=== PATIENT | female | born 1985 | race Two or more races ===

== ENCOUNTER 2022-08-16 15:56 | Outpatient (REF) | payer OTHER, SELFPAY ==
--- NOTE | ~2022-08-16 | US_ITS ---
EXAMINATION: US PELVIS CLINICAL INFORMATION: Menorrhagia. 37-year-old, LMP 07/17/2022 COMPARISON: None available. TECHNIQUE: Ultrasound of the pelvis is performed using both transabdominal and transvaginal transducers along with Doppler. Transvaginal imaging is performed due to inadequate visualization transabdominally. FINDINGS: Uterus: The uterus is anteverted and measures 7.8 x 3.7 x 5.9 cm. The double wall endometrial thickness is 11 mm. Configuration of the uterus may reflect arcuate morphology. No visible fibroid. Adnexa: Both ovaries are visualized. There is normal color flow to the adnexa. There is no ovarian torsion. There is no pelvic ascites or fluid collection. Right ovary measures 4.2 x 2.2 x 2.5 cm. Left ovary measures 2.9 x 2.0 x 1.6 cm. US/US pelvic and transvaginal IMPRESSION: Configuration of the uterus may reflect arcuate morphology. No visible fibroid.
== END 2022-08-16 15:57 | disposition home or self-care (01) ==
LOC: HO.US 15:56
PROVIDERS: Visit Provider Student in an Organized Health Care Education/Training Program
DX: N92.1 Excessive and frequent menstruation with irregular cycle (principal)
CPT/HCPCS: 76830; 76856

== ENCOUNTER 2022-10-26 15:17 | Outpatient (REF) | payer OTHER, SELFPAY ==
--- NOTE | ~2022-10-26 | XR_ITS ---
EXAMINATION: XR ANKLE, RIGHT CLINICAL INFORMATION: Right ankle pain following twisting injury. COMPARISON: None available. TECHNIQUE: AP, lateral, and mortise views of the right ankle. FINDINGS: The ankle joint and mortise are intact. There is no acute fracture or dislocation. The joint spaces are unremarkable. Mild soft tissue swelling is seen laterally. XR/XR ankle RT min 3V IMPRESSION: Mild soft tissue swelling laterally without acute underlying osseous abnormality.
== END 2022-10-26 15:18 | disposition home or self-care (01) ==
LOC: HO.HHCX 15:17
PROVIDERS: Visit Provider Family Medicine
DX: S99.911A Unspecified injury of right ankle, initial encounter (principal)
CPT/HCPCS: 73610

== ENCOUNTER 2022-12-06 18:42 | Outpatient (REF) | payer OTHER, SELFPAY ==
[2022-12-07 13:59] LABS: BV Int Neg Control Negative (Negative); BV Int Pos Control Positive (Positive)
== END 2022-12-06 18:43 | disposition home or self-care (01) ==
LOC: HO.HHCLNP 18:42
PROVIDERS: Visit Provider Advanced Practice Midwife
DX: R35.0 Frequency of micturition (principal); N89.8 Other specified noninflammatory disorders of vagina
CPT/HCPCS: 87086; 87480; 87510; 87660

== ENCOUNTER 2023-01-24 10:40 | Outpatient (REF) | payer OTHER, SELFPAY ==
--- NOTE | ~2023-01-24 | XR_ITS ---
EXAMINATION: XR LUMBOSACRAL SPINE WITH OBLIQUES CLINICAL INFORMATION: Low back pain COMPARISON: None available. TECHNIQUE: 5 views of the lumbar spine FINDINGS: 5 nonrib-bearing lumbar-type vertebral bodies. No acute visible fracture or dislocation. Slight grade 1 anterolisthesis of L5 on S1 with bilateral L5 pars defects. Slight grade 1 retrolisthesis of L4 and L5. Vertebral body heights and disc spaces are otherwise maintained. Posterior elements are intact. Paraspinal soft tissues are unremarkable. Visualized bowel gas is unremarkable. XR/XR lumbar spine 4V min IMPRESSION: 1. No acute visible fracture or dislocation. 2. Slight grade 1 anterolisthesis of L5 on S1 with bilateral L5 pars defects. 3. Slight grade 1 retrolisthesis of L4 and L5.
== END 2023-01-24 10:41 | disposition home or self-care (01) ==
LOC: HO.HHCX 10:40
PROVIDERS: Visit Provider Student in an Organized Health Care Education/Training Program
DX: R39.15 Urgency of urination (principal); M54.50 Low back pain, unspecified
CPT/HCPCS: 72110; 87086

== ENCOUNTER 2023-04-13 14:47 | Outpatient (REF) | payer OTHER, SELFPAY ==
[2023-04-13 16:59] LABS: Alanine Aminotransferase 44 U/L (0-31); Albumin Level 4.3 g/dL (3.5-5.0); Alkaline Phosphatase 88 U/L (39-117); Anion Gap 13 (12-20); Aspartate Amino Transferase 29 U/L (5-31); Bilirubin Total 0.4 mg/dL (0.0-1.0); Blood Urea Nitrogen 13 mg/dL (9-16); Calcium 9.7 mg/dL (8.4-10.2); Carbon Dioxide 27 mmol/L (22-29); Chloride 103 mmol/L (96-108); Estimated Glomerular Filt Rate > 60; Glucose Random 81 mg/dL (60-115); Potassium 3.7 mmol/L (3.3-5.1); Sodium 139 mmol/L (135-145); Total Protein 7.7 g/dL (6.5-8.0)
[2023-04-13 18:43] LABS: Creatinine Urine 48.91 mg/dL; Microalbumin Urine < 5.0 mg/L
== END 2023-04-13 14:48 | disposition home or self-care (01) ==
LOC: HO.HHCL 14:47
PROVIDERS: Visit Provider Student in an Organized Health Care Education/Training Program
DX: I10 Essential (primary) hypertension (principal)
CPT/HCPCS: 36415; 80053; 82570

== ENCOUNTER 2023-04-25 10:53 | Outpatient (REF) | payer OTHER, SELFPAY ==
--- NOTE | ~2023-04-25 | MM_ITS ---
EXAMINATION: MM DIAGNOSTIC DIGITAL BREAST TOMOSYNTHESIS, BILATERAL US BREAST LIMITED, LEFT MAMMOGRAPHY: CLINICAL INFORMATION: 38-year-old female, baseline exam, no significant family history of breast cancer, complaining of palpable abnormality in the 9:00 periareolar region left breast. COMPARISON: Mammography: None. Baseline exam. TECHNIQUE: Digital breast tomosynthesis is performed in both the craniocaudal and mediolateral oblique views along with computer-aided detection (CAD). Synthesized 2D images are generated from the tomosynthesis. In addition to standard views, 2-D spot magnification views of the left CC and ML were performed, as well as 3-D spot compression left CC view, and left MLO view x2. FINDINGS: The breasts are heterogeneously dense, which may obscure small masses (ACR BI-RADS breast composition Category c). The left breast demonstrates numerous abnormalities. There are focal asymmetric densities in the 2:00 axis, the 8:00 axis, the 9:00 axis, and the 6:00 axis. There is generalized parenchymal distortion within the posterior upper outer left breast, as well as the posterior and mid and lower inner quadrant. There are pleomorphic calcifications in a ductal distribution throughout the lower outer quarter of the left breast, with similar involvement in the medial upper posterior region. No definite axillary adenopathy or skin abnormality is identified. No suspicious abnormality is identified in the right breast. ULTRASOUND: CLINICAL INFORMATION: As above. Palpable abnormality 9:00 periareolar region left breast. Baseline exam. COMPARISON: None TECHNIQUE: Targeted sonographic evaluation was performed using a high frequency linear transducer. Attention was given to basically the entire left breast with attention to the palpable focus as well. Selected archived documentation. FINDINGS: LEFT BREAST: -In the 8:00 axis, 4 cm from the nipple, there is a hypoechoic irregular mass measuring 0.5 x 0.4 x 0.4 cm in diameter with associated microcalcifications, no posterior features, and with a surrounding echogenic halo of fat. -In the 7:00 axis, 7 cm from the nipple, there is an irregular hypoechoic infiltrative appearing mass without posterior features, measuring 0.8 x 0.5 x 0.9 cm, with a surrounding echogenic halo of fat and surrounding increased color Doppler signal. -Also in the 7:00 axis, 7 cm from the nipple, just abutting and likely connecting, there is a 0.7 x 0.8 x 0.7 cm similar mass was similar features and surrounding echogenic fat. There is an abutting 0.5 x 0.3 cm satellite nodule. -In the 6:00 axis, 3 cm from the nipple, likely representing the palpable focus of concern, there is a similar irregular hypoechoic 0.9 x 0.7 x 0.9 cm mass with surrounding echogenic fat. 2 -In the lower outer quadrant there are 2 small subcentimeter nodules with similar characteristics, with branching hypoechoic ductal structures in the deep tissue planes abutting the pectoralis fascia. Just superficial and lateral to this is a 1.8 x 1.1 cm mixed echogenicity predominantly isoechoic mass (US #1-4, image 71 of 626). -In the upper outer quadrant of the left breast at approximately 2:00, 9 cm from the nipple, there is an irregular hypoechoic infiltrating appearing mass within dense deep stromal elements, without other regions. Similar, possibly representing additional tumor versus irregular of fibrocystic changes. -No definite abnormal lymphadenopathy present in the left axilla. MM/MM tomosynthesis diagnostic BI IMPRESSION: -Extremely complicated mammogram and ultrasound left breast due to suspected extensive tumoral infiltration. -Numerous irregular hypoechoic and suspicious masses noted throughout the left breast, spanning the 2:00 to the approximate 8:00 axis as described above, highly suspicious for multicentric tumor. Most reasonable approach is to ultrasound-guided biopsy the superior 2:00 lesion, the inferior 6:00 lesion, and then use breast MRI to fully stage. -Pleomorphic calcifications in the lower inner left breast in a ductal distribution with associated small masses, as well as in the upper outer posterior left breast, also highly suspicious. There appears to be extensive disease throughout the left breast. -No definite abnormal left axillary adenopathy. -No definite abnormality in the right breast. Findings and recommendations were discussed with the patient in detail, who is in agreement with the overall plan. Surgical and oncologic consultation will be necessary. OVERALL ASSESSMENT: Mammography: BI-RADS 5 - Highly suggestive of malignancy Ultrasound: BI-RADS 5 - Highly suggestive of malignancy RECOMMENDATION: Biopsy recommended
== END 2023-04-25 10:54 | disposition home or self-care (01) ==
LOC: HO.MAMMO 10:53
PROVIDERS: PCP Student in an Organized Health Care Education/Training Program; Visit Provider Advanced Practice Midwife
DX: N64.4 Mastodynia (principal); N63.42 Unspecified lump in left breast, subareolar
CPT/HCPCS: 76642; 77062; 77066

== ENCOUNTER → 2023-04-25 11:00 | Outpatient (BNV) | payer OTHER, SELFPAY | PROVIDERS: PCP Student in an Organized Health Care Education/Training Program; Visit Provider Radiology Diagnostic Radiology | DX: N63.25 Unspecified lump in the left breast, overlapping quadrants (principal) | CPT/HCPCS: 76642; 77061; 77066 ==

== ENCOUNTER 2023-04-28 08:16 | Outpatient (AMB) | payer OTHER, SELFPAY ==
--- NOTE | 2023-04-28 08:24 | A.OFFVIS_ITS ---
Intake Vital Signs 3 04/28/23 08:35 Height 5 ft 2 in Weight 169 lb BMI 30.9 BP 129/59 L Blood Pressure Location Lt brachial Position Sitting Pulse 100 Intake Visit Reasons: US guided Bx Left breast x2 mass (Areas) Intake Note: Patient is seen in office for ultrasound guided biopsy consult, following left breast mass x2 areas. 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 This was 1st identified in December 2022 and has not changed significantly since then. She reports monthly performing self examinations and noted this change. She has no previous history of breast problems or breast surgery. She does report some pain associated with this palpable mass but denies any other symptoms of skin redness, nipple discharge, or enlarged lymph nodes. She denies a family history of breast problems or breast cancer. She is . She denies a history of radiation exposure. She denies Ashkenazi Druze heritage. Mammogram and ultrasound performed at the [facility] revealed several areas of density and microcalcifications in the left breast felt to be highly suggestive of breast cancer and ultrasound-guided core biopsy of to the most suspicious areas is recommended (BI-RADS 5). The possibility of adding breast MRI was also raised given the multi centricity of the lesions. She is scheduled for the ultrasound- guided core biopsies later today at the [facility]. [facility] Family History Maternal Grandmother Ovarian cancer Colon cancer Social History Alcohol intake: never Patient Tobacco Use Status: Never used Tobacco Female Reproductive History Menstrual Age of Menarche: 12 Date of last menstrual period: 12/06/22 Total pregnancies: 0 Review of Systems Const All systems reviewed & are unremarkable except as noted in HPI and below Physical Exam Const General: cooperative and no acute distress Nutritional Appearance: well nourished Orientation/consciousness: patient oriented x3 Limitations: no limitations HEENT Head: Yes normocephalic and Yes atraumatic Ears: hearing grossly normal bilaterally Chest Other: Left breast: No skin change, no nipple retraction, no nipple discharge, no enlarged lymph nodes. Patient points to an area in the 8 to 9 o'clock position just medial to the nipple-areolar complex. Deep within the breast tissue is noted a 1 cm area of thickening which is nonmobile and tender to palpation. A 2nd areas also palpated in the 05:00 o'clock location approximately 7 cm from the nipple which is also tender and measures approximately 1 cm in diameter. This is also posterior inferiorly fixed in the breast tissue. Right breast: No skin change, no nipple retraction, no nipple discharge, no palpable mass, no enlarged lymph nodes Chest/axillae images: 2 1. 2. Resp Effort & Inspection: normal respiratory effort, no audible wheezes, no cough and no respiratory distress Cardio Jugular venous distension: no JVD GI Inspection: Yes normal to inspection Skin Other: Warm, dry, no rash Neuro General: patient oriented x3 Extrem General: Yes no clubbing, cyanosis or edema Assessment & Plan Assessment & Plan (1) Abnormal ultrasound of breast: Code(s): R92.8 - Other abnormal and inconclusive findings on diagnostic imaging of breast (2) Abnormal mammogram of left breast: Code(s): R92.8 - Other abnormal and inconclusive findings on diagnostic imaging of breast Plan 38-year-old female patient presenting with a palpable breast mass noted on self examination found on mammogram and ultrasound to have several suspicious areas within the left breast which will require ultrasound-guided core biopsy (BI-RADS 5). She [facility] I recommended she return approximately 1 week to review the pathology results and discuss treatment options. She expressed understanding and agrees with the plan. Orders: Orders 2 US breast ndl core bio ea add Today R92.8 - Other abnormal and inconclusive findings on diagnostic imaging of breast US breast ndl core biopsy LT Today R92.8 - Other abnormal and inconclusive findings on diagnostic imaging of breast Coding Level of Care Code New Pt Level 4 (32017) Diagnoses Abnormal ultrasound of breast R92.8 Abnormal mammogram of left breast R92.8
[2023-04-28 08:35] VITALS: BP 129/59; PULSE 100; BMI 30.9
== END 2023-04-28 08:47 | disposition home or self-care (01) ==
PROVIDERS: PCP Student in an Organized Health Care Education/Training Program; Visit Provider Surgery
DX: R92.8 Other abnormal and inconclusive findings on diagnostic imaging of breast (principal)
CPT/HCPCS: 99204

== ENCOUNTER 2023-04-28 09:32 | Outpatient (REF) | payer OTHER, SELFPAY ==
--- NOTE | ~2023-04-28 | MM_ITS ---
PROCEDURE: US GUIDED BREAST BIOPSY, left, 2 sites. CLINICAL INFORMATION: Numerous suspicious masses left breast, spanning 2:00 to the approximate 8:00 axes. Ultrasound-guided biopsy of the 2:00 lesion, and the inferior 6:00 lesion recommended, with MRI recommended to follow for staging. COMPARISON: 04/25/2023 left breast ultrasound and bilateral baseline mammography. PROCEDURAL DETAILS: The details of the procedure, as well as the risks, benefits, and alternatives to the procedure were explained to the patient in detail and all of her questions were answered, after which written informed consent was obtained. Site and side were confirmed. Prior to the procedure, sonography revealed an irregular hypoechoic mass with internal calcifications at the 2:00 axis, 9 cm from the nipple, measuring and estimated 1.3 x 0.6 cm. A time-out was performed, the lesion intended for biopsy was targeted, and the skin of the left breast was then marked, prepped and draped in the usual sterile fashion. Using sonographic guidance, sterile technique, and 1% lidocaine without epinephrine for local anesthesia, 4 core biopsies were obtained through the targeted area with a 14G spring loaded Sertera core biopsy device. There was real-time confirmation of appropriate needle passage. Sampling was documented. At the completion of tissue sampling, a single butterfly-shaped metallic clip was deposited at the biopsy site. Next, sonography revealed an irregular hypoechoic mass at the left 6:00 axis, 3 cm from the nipple, measuring 0.9 x 0.7 x 0.9 cm. The lesion intended for biopsy was targeted, and the skin of the left breast was then marked, and again prepped and draped in the usual sterile fashion. Using sonographic guidance, sterile technique, and 1% lidocaine without epinephrine for local anesthesia, 3 good core biopsies were obtained through the targeted mass with a 14G spring loaded Sertera core biopsy device. There was real-time confirmation of appropriate needle passage. Sampling was documented. At the completion of tissue sampling, a single open coil metallic clip was deposited at the biopsy site. There was no evidence of immediate location or hematoma. DIGITAL POST-PROCEDURE MAMMOGRAPHY: Breast density: The tissue is heterogeneously dense which may obscure small masses. BI-RADS version 5, category C. There are no new mammographic findings demonstrated. The postprocedure 2-view direct digital mammogram reveals satisfactory and accurate positioning of both of the biopsy clips. No hematoma present. No evidence of clip migration. The patient tolerated the procedure well and, after assuring adequate hemostasis, was discharged in good condition after reviewing postbiopsy breast care instructions. Final pathology results are pending. MM/MM tomosynthesis diagnostic LT IMPRESSION: 1. No immediate complication from 2 site ultrasound-guided percutaneous biopsy left breast. Masses at 2:00 axis and 6:00 axis were targeted and sampled. 2. Ultrasound was used to localize and guide 2 separate marker clip placements. 3. The 2-view direct digital postprocedure mammogram reveals satisfactory positioning of both of the biopsy clips, without evidence of hematoma or clip migration. 4. Final pathology results are pending. A separate report with final recommendations will be issued once these results are made available.
[2023-04-28] MEDS: Lidocaine HCl 1 % 20 ML VIAL 16 ML SUBCUT (11:07)
[2023-04-28] MEDS: Sodium Bicarbonate 8.4% 50 MEQ/50 ML VIAL SUBCUT (11:08)
== END 2023-04-28 09:33 | disposition home or self-care (01) ==
LOC: HO.MAMMO 09:32
PROVIDERS: PCP Student in an Organized Health Care Education/Training Program; Visit Provider Surgery
DX: R92.8 Other abnormal and inconclusive findings on diagnostic imaging of breast (principal)
CPT/HCPCS: 19083; 19084; 77061; 77065; 88305; 88360; A4648; C1894

== ENCOUNTER → 2023-04-28 10:00 | Outpatient (BNV) | payer OTHER, SELFPAY | PROVIDERS: PCP Student in an Organized Health Care Education/Training Program; Visit Provider Radiology Diagnostic Radiology | DX: N63.25 Unspecified lump in the left breast, overlapping quadrants (principal) | CPT/HCPCS: 19083; 19084; 77065 ==

== ENCOUNTER 2023-05-06 09:40 | Outpatient (AMB) | payer OTHER, SELFPAY ==
--- NOTE | 2023-05-06 09:46 | MHC.OFFVIS ---
Intake Vital Signs 05/06/23 09:54 Height 2 in Weight 66 lb BMI 25003.5 BP 145/90 H Blood Pressure Location Lt brachial Position Sitting Pulse 124 H Intake Visit Reasons: S/p US guided Bx Left breast x2 mass (Areas) Intake Note: Patient is seen in office for ultrasound guided biopsy results, left breast mass x2. 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 This was 1st identified in December 2022 and has not changed significantly since then. She reports monthly performing self examinations and noted this change. She has no previous history of breast problems or breast surgery. She does report some pain associated with this palpable mass but denies any other symptoms of skin redness, nipple discharge, or enlarged lymph nodes. She denies a family history of breast problems or breast cancer. She is . She denies a history of radiation exposure. She denies Ashkenazi Taoism heritage. Mammogram and ultrasound performed at the [facility] revealed several areas of density and microcalcifications in the left breast felt to be highly suggestive of breast cancer and ultrasound-guided core biopsy of to the most suspicious areas is recommended (BI-RADS 5). The possibility of adding breast MRI was also raised given the multi centricity of the lesions. She underwent ultrasound-guided core biopsies of the 2 most suspicious areas in the left breast. She returns today to review the pathology results. Pathology of the lesion located in the 02:00 o'clock location revealed PASH, however the lesion in the 6 o'clock position revealed invasive ductal carcinoma, ER/CO positive, HER2 Abimbola negative, Ki-67 25% (high). A copy of the pathology report was provided to the patient today. She had previously reviewed the pathology results online through the portal. [facility] Medical History (Updated 05/06/23 @ 10:53 by Jan Donald MD) Invasive ductal carcinoma of left breast Family History Maternal Grandmother Ovarian cancer Colon cancer Social History Alcohol intake: never Patient Tobacco Use Status: Never used Tobacco Female Reproductive History Menstrual Age of Menarche: 12 Review of Systems Const All systems reviewed & are unremarkable except as noted in HPI and below Physical Exam Vital Signs: Last Vital Signs Pulse 124 H 05/06/23 09:54 BP 145/90 H 05/06/23 09:54 BMI result Body Mass Index 17452.5 Const General: cooperative and no acute distress Nutritional Appearance: well nourished Orientation/consciousness: patient oriented x3 Limitations: no limitations HEENT Head: Yes normocephalic and Yes atraumatic Ears: hearing grossly normal bilaterally Chest Other: Exam deferred Resp Effort & Inspection: normal respiratory effort, no audible wheezes, no cough and no respiratory distress Cardio Jugular venous distension: no JVD GI Inspection: Yes normal to inspection Skin Other: Warm, dry, no rash Neuro General: patient oriented x3 Extrem General: Yes no clubbing, cyanosis or edema Assessment & Plan Assessment & Plan (1) Invasive ductal carcinoma of left breast: Code(s): C50.912 - Malignant neoplasm of unspecified site of left female breast Plan 38-year-old female patient presenting with abnormal findings in the left breast status post ultrasound-guided core biopsy x2. Lesion at the 06:00 o'clock location did reveal an invasive ductal carcinoma, ER/CO positive, HER2 Abimbola negative. Patient has other areas of concern in the left breast and MRI of the breast was recommended. She will also require oncology evaluation in the meantime. Further management will be based on MR findings. If multiple suspicious findings were identified, the patient is considering mastectomy. We discussed the possibilities of immediate reconstruction as well. She will return following the MRI to discuss further management. She is welcome to call sooner for any new questions. Orders: Orders MR breast BI wo/w con Today C50.912 - Malignant neoplasm of unspecified site of left female breast Referrals Hematology & Oncology Referral C50.912 - Malignant neoplasm of unspecified site of left female breast Coding Level of Care Code Est Pt Level 3 (84107) Diagnoses Invasive ductal carcinoma of left breast C50.910
[2023-05-06 09:54] VITALS: BP 145/90; PULSE 124; BMI 11599.5
== END 2023-05-06 10:10 | disposition home or self-care (01) ==
PROVIDERS: PCP Student in an Organized Health Care Education/Training Program; Visit Provider Surgery
DX: C50.912 Malignant neoplasm of unspecified site of left female breast (principal)
CPT/HCPCS: 99213

== ENCOUNTER → 2023-05-06 09:40 | Outpatient (BNVA) | payer OTHER, SELFPAY | PROVIDERS: PCP Student in an Organized Health Care Education/Training Program; Visit Provider Surgery | DX: R92.8 Other abnormal and inconclusive findings on diagnostic imaging of breast (principal) ==

== ENCOUNTER 2023-05-09 08:50 | Outpatient (REF) | payer OTHER, SELFPAY ==
--- NOTE | ~2023-05-09 | MR_ITS ---
EXAMINATION: MR BREAST WITHOUT AND WITH CONTRAST, BILATERAL CLINICAL INFORMATION: Newly diagnosed left breast cancer, 6:00. Benign left breast, 2:00. Additional suspicious lesions left breast, 8:00, 7:00. Evaluate extent disease. COMPARISON: 04/28/2023. No previous breast MRI. 04/25/2023 TECHNIQUE: Imaging was performed with a dedicated breast coil. Prior to the administration of contrast, bilateral axial T1 and bilateral axial T2 weighted sequences were obtained. After the uneventful administration of?7.5 mL of Gadavist, dynamic contrast-enhanced VIBRANT series through the breasts in the axial plane were performed. Subtracted images were performed and reviewed. A delayed sagittal sequence through both breasts was acquired. Additionally, CAD post-processing, including maximum intensity projections, 3-D reconstructions and kinetic analysis, were performed an independent workstation and reviewed by the interpreting radiologist is a portion of this exam. FINDINGS: The patient's fibroglandular tissue demonstrates moderate background enhancement. LEFT BREAST: In the 7:00 position of the left breast, 3.3 cm from nipple, there is an irregular enhancing mass containing a biopsy clip artifact measuring 1.1 cm in diameter (image 62, series 101). This represents the site of newly diagnosed malignancy. The enhancement pattern is predominately plateau or type II. The closest skin margin is inferior at a distance of 1.7 cm. This area was labeled 6:00, 3 cm from the nipple on review of recent ultrasound imaging. In the 7:00 position of the left breast, 6.8 cm from the nipple, there is a larger irregular enhancing mass measuring at least 1.7 x 1.1 x 1.2 cm (image 67, series 101). This finding correlates to the mass identified on ultrasound and not biopsied at 7:00, 7 cm from the nipple. The kinetics are both type III and type II. There is a large area of suspicious nonmass enhancement in between these 2 lesions which appears asymmetric to the contralateral side and extends laterally into the inferior aspect of the left breast. This finding is suspicious for an extensive intraductal component. Review of recent mammography demonstrates suspicious calcifications involving the lower outer and lower inner and in a segmental distribution. The area of enhancement in the transverse plane measures at least 7.1 cm by at least 5.3 cm AP and approximately 1.8 cm cc. In the 8 o'clock position of the left breast, 4.5 cm from the nipple, there is irregular enhancing mass with type III enhancement measuring approximately 4 mm in size (image 64, series 101). This finding most likely correlates to the ultrasound images labeled 8:00 4 cm which demonstrate suspicious hypoechoic mass. In the 5:00 position of the left breast, 5.2 cm from the nipple, there is a small irregular enhancing mass measuring approximately 5 mm in size located 5.2 cm from the nipple (image 71, series 101). This mass demonstrates type III and type II enhancement and appears to most likely represent an additional site of malignancy. If it would alter surgical management, consider targeted ultrasound to the lower outer quadrant of the left breast. Immediately posterior to this finding there is a second possible mass lesion measuring up to approximately 6 mm in size. This finding demonstrates mostly type II enhancement (image 69, series 101). There is extensive nonmass enhancement along the medial aspect of both lesions suspicious for additional malignancy such as DCIS. No significant suspicious enhancement in the superior left breast. There is linear, nonmass enhancement in the retroareolar region of the left breast best appreciated in the sagittal plane measuring up to 1.3 cm (image 52, sagittal reconstructed series. The enhancement extends to the expected base of the left nipple. Review of the kinetic images demonstrates no additional suspicious findings. RIGHT BREAST: No suspicious masslike or non-masslike enhancement. No abnormal skin thickening or nipple retraction. No abnormal architectural distortion. Review of the T2 weighted images demonstrates no fibrocystic changes or dilated ducts. Review of kinetic images reveals no additional findings. There is no suspicious internal mammary chain or axillary adenopathy. Limited views of the chest and abdomen are unremarkable. MR/MR breast BI wo/w con IMPRESSION: 1. Suspected left breast multifocal disease with probable extension into the lower outer quadrant. If needed, targeted ultrasound could be performed in the lateral and inferior aspect of the left breast to identify an additional targets for biopsy (5:00 axis) . In addition, there is extensive nonmass enhancement in the central and inferior left breast suspicious for extensive DCIS component. This could be confirmed with stereotactic biopsy targeted to correlative calcifications. In addition, the larger mass located at 7:00, 7 cm from the nipple could be targeted for biopsy although the pathology would be expected to be similar given the enhancement pattern compared to the lesion biopsied at 6:00. Possible extension of ductal disease to the base of the nipple. 2. No MRI evidence for contralateral right breast carcinoma. 3. No suspicious axillary or internal mammary chain adenopathy. ASSESSMENT: LEFT BREAST: B-RADS 6 - Known Malignancy - Appropriate action should be taken. RIGHT BREAST: BI-RADS 1-Negative RECOMMENDATIONS: Appropriate action.
[2023-05-09] MEDS: gadobutroL 7.5 ML VIAL IVPUSH (10:18)
== END 2023-05-09 08:51 | disposition home or self-care (01) ==
LOC: HO.MRI 08:50
PROVIDERS: PCP Student in an Organized Health Care Education/Training Program; Visit Provider Surgery
DX: C50.912 Malignant neoplasm of unspecified site of left female breast (principal)
CPT/HCPCS: 77049; A9585

== ENCOUNTER 2023-05-19 09:08 | Outpatient (AMB) | payer OTHER, SELFPAY ==
--- NOTE | 2023-05-19 09:22 | MHC.OFFVIS ---
Intake Vital Signs 05/19/23 09:24 Height 5 ft 2 in Weight 167 lb 8.821 oz BMI 30.6 BP 138/91 H Blood Pressure Location Rt brachial Position Sitting Pulse 118 H Intake Visit Reasons: MRI results Intake Note: This patient presents for a follow-up assessment for MRI results. Patient c/o; reports no complaints. Saturation Diver Required: No Accompanied by: Self / Same As Patient Allergies No Known Allergies Allergy (Verified 05/19/23 09:25) Medication List - Last Reconciled 05/19/23 by Jan Donald MD duloxetine 60 mg PO DAILY hydrochlorothiazide 12.5 mg PO DAILY HPI HPI Comments History of Present Illness Details 38-year-old female patient presenting with a palpable mass noted on self examination at approximately the 09:00 o'clock position of the left breast just medial to the nipple-areolar complex. This was 1st identified in December 2022 and has not changed significantly since then. She reports monthly performing self examinations and noted this change. She has no previous history of breast problems or breast surgery. She does report some pain associated with this palpable mass but denies any other symptoms of skin redness, nipple discharge, or enlarged lymph nodes. She denies a family history of breast problems or breast cancer. She is . She denies a history of radiation exposure. She denies Ashkenazi Caodaism heritage. Mammogram and ultrasound performed at the [facility] revealed several areas of density and microcalcifications in the left breast felt to be highly suggestive of breast cancer and ultrasound-guided core biopsy of to the most suspicious areas is recommended (BI-RADS 5). The possibility of adding breast MRI was also raised given the multi centricity of the lesions. She underwent ultrasound-guided core biopsies of the 2 most suspicious areas in the left breast. She returns today to review the pathology results. Pathology of the lesion located in the 02:00 o'clock location revealed PASH, however the lesion in the 6 o'clock position revealed invasive ductal carcinoma, ER/RI positive, HER2 Abimbola negative, Ki-67 25% (high). She returns today to review the MRI findings. This revealed multiple suspicious nodules in multiple quadrants of the left breast felt to be very suspicious for multicentric disease. No enlarged lymph nodes no lesions on the right breast were identified. She is scheduled to see Dr. Fournier in consultation tomorrow. [facility] Medical History Invasive ductal carcinoma of left breast Family History Maternal Grandmother Ovarian cancer Colon cancer Social History Alcohol intake: never Patient Tobacco Use Status: Never used Tobacco Female Reproductive History Menstrual Age of Menarche: 12 Review of Systems Const All systems reviewed & are unremarkable except as noted in HPI and below Physical Exam Vital Signs: Last Vital Signs Pulse 118 H 05/19/23 09:24 BP 138/91 H 05/19/23 09:24 BMI result Body Mass Index 30.6 Const General: cooperative and no acute distress Nutritional Appearance: well nourished Orientation/consciousness: patient oriented x3 Limitations: no limitations HEENT Head: Yes normocephalic and Yes atraumatic Ears: hearing grossly normal bilaterally Chest Other: Exam deferred Resp Effort & Inspection: normal respiratory effort, no audible wheezes, no cough and no respiratory distress Cardio Jugular venous distension: no JVD GI Inspection: Yes normal to inspection Skin Other: Warm, dry, no rash Neuro General: patient oriented x3 Extrem General: Yes no clubbing, cyanosis or edema Assessment & Plan Assessment & Plan (1) Invasive ductal carcinoma of left breast: Code(s): C50.912 - Malignant neoplasm of unspecified site of left female breast Plan 38-year-old female patient presenting with a known left breast invasive ductal carcinoma. MRI reveals probable multicentric disease which would not be amenable to lumpectomy. Patient is being evaluated by Dr. Fournier tomorrow regarding the possibility of neoadjuvant treatment. At this time patient would be best treated with simple mastectomy and sentinel node biopsy left breast. We also discussed breast reconstruction either performed immediately or delayed. She expressed understanding of her options and we will await Dr. Fournier's evaluation. Coding Level of Care Code Est Pt Level 3 (44212) Diagnoses Invasive ductal carcinoma of left breast C50.912
[2023-05-19 09:24] VITALS: BP 138/91; PULSE 118; BMI 30.6
== END 2023-05-19 10:01 | disposition home or self-care (01) ==
PROVIDERS: PCP Student in an Organized Health Care Education/Training Program; Visit Provider Surgery
DX: C50.912 Malignant neoplasm of unspecified site of left female breast (principal)
CPT/HCPCS: 99213

== ENCOUNTER → 2023-05-19 09:08 | Outpatient (BNVA) | payer OTHER, SELFPAY | PROVIDERS: PCP Student in an Organized Health Care Education/Training Program; Visit Provider Surgery ==

== ENCOUNTER → 2023-05-20 09:17 | Outpatient (BNV) | payer OTHER, SELFPAY | PROVIDERS: PCP Student in an Organized Health Care Education/Training Program; Referring Provider Surgery; Visit Provider Internal Medicine Medical Oncology | DX: C50.912 Malignant neoplasm of unspecified site of left female breast (principal) | CPT/HCPCS: 99213; 99214 ==

== ENCOUNTER → 2023-05-25 07:51 | Outpatient (REF) | payer OTHER, SELFPAY ==
--- NOTE | 2023-05-25 07:53 | CA_ITS ---
Transthoracic Echocardiogram Patient (Last, First, Middle): Yoandy Henao, Gender: Female Date of : 1985 Age: 38 Procedure Date: 05/25/2023 Procedure Type: Transthoracic Echocardiogram Location: OP Height: 157.48 cm Weight: 75.75 kg BSA: 1.77 m2 Heart Rate: bpm BP: 118 / 90 mmHg Crutching Contractor: TO Referring MD: Simon Fournier MD Symptoms: BREAST CANCER.PRE CHEMOASSESSMENTOF HEART FUNCT Study Quality: Adequate with contrast ECG Rhythm: Sinus Conclusions: - The left ventricular systolic function is normal. The calculated ejection fraction is 58% by biplane method. - No obvious valvular pathology seen on this study. Findings Procedure Information Contrast agent, definity, is being given per protocol without apparent complications. Left Ventricle Normal left ventricular cavity size. There is normal left ventricular wall thickness. The left ventricular systolic function is normal. The calculated ejection fraction is 58% by biplane method. There is no evidence of regional wall motion abnormalities. Diastolic function is normal for age. There is mild septal and mild basal asymmetric hypertrophy. LV peak GLS -18.6%. Right Ventricle Normal right ventricular cavity size and systolic function. Atria Both atria are normal in size. Aortic Valve There is a normal trileaflet aortic valve. There is no aortic valve stenosis. There is no aortic valve regurgitation. Mitral Valve The mitral valve appears normal. There is trace mitral valve regurgitation. There is no mitral valve stenosis. Pulmonic Valve The pulmonic valve is likely normal. Tricuspid Valve Normal tricuspid valve structure. There is trace tricuspid valve regurgitation. There is no evidence of pulmonary hypertension. Great Vessels The asc aorta is normal in size. Venous The inferior vena cava is normal in size and collapses greater than 50% with inspiration. Pericardium/Pleural There is no evidence of pericardial effusion. Prior Study Comparison No prior study available for comparison. Recommendations, Care & Conclusions No obvious valvular pathology seen on this study. Measurements 2D Linear Measurements IVSd: 1.14 0.6-0.9/0.6-1.0 cm LVIDd: 3.91 3.9-5.3/4.2-5.9 cm LVIDd Index: 2.21 2.4-3.2/2.2-3.1 cm/m2 LVIDs: 2.47 2.0-3.6 cm LVPWd: 0.86 0.7-1.1 cm LA Diam: 3.10 2.7-3.8/3.0-4.0 cm LAIDs Index: 1.75 1.5-2.3 cm/m2 LV Mass: 151.97 67-162/88-224 g LV Mass Index: 85.86 43-95/49-115 g/m2 LVOT Diam: 1.90 3.0+(-)1.3 cm 2D Systolic Function EF 4C: 56.10 >55% EF 2C: 59.60 >55% EF BiP: 57.90 >55% Mitral Valve MV Pk E: 0.66 MV PK A: 0.61 MV Decel Time: 139.00 E/A: 1.10 E'Lateral: 8.05 E'Medial: 7.94 E/E' Med: 8.30 E/E' Lat: 8.20 PHT: 41.00 MVA PHT: 5.37 Decel Anson: 4.74 Aortic Valve AoV Pk Alex: 1.49 AoV Mn Alex: 1.03 AoV VTI: 0.26 AoV Pk Grad: 9.00 Aov Mn Grad: 5.00 YURIY Cont.VTI: 2.02 LVOT LVOT Pk Alex: 1.12 LVOT Mn Alex: 0.75 LVOT VTI: 0.19 LVOT Pk Grad: 5.00 LVOT Mn Grad: 3.00 LVOT Diam: 1.90 LVOT Area: 2.84 Diastolic Function MV Pk E: 0.66 MV Pk A: 0.61 E/A: 1.10 E'Medial: 7.94 E/E' Med: 8.30 E' Laterial: 8.05 E/E' Lat: 8.20 Right Ventricle TAPSE (mm): 22.20 TVS' Alex: 12.40 Tricuspid Valve TR Pk Alex: 1.75 TR Pk Grad: 12.00 RA Press: 3.00 RVSP: 15.00 Great Vessels Aorta Sinus of Valsalva: 3.11 2.0-3.[address] Ridge: 2.35 1.7-3.4 cm Ao Asc: 2.80 2.1-3.4 cm Updated in Other Vendor System with Status of Final Kristopher Bryant MD electronically signed on 05/26/2023 7:56:34 AM with status of Final
== END ==
LOC: HO.CARD 07:51
PROVIDERS: PCP Student in an Organized Health Care Education/Training Program; Visit Provider Internal Medicine Medical Oncology
DX: C50.912 Malignant neoplasm of unspecified site of left female breast (principal)
CPT/HCPCS: 93306; 93356; Q9957

== ENCOUNTER → 2023-05-25 07:53 | Outpatient (BNV) | payer OTHER, SELFPAY | PROVIDERS: PCP Student in an Organized Health Care Education/Training Program; Visit Provider Internal Medicine | DX: Z01.818 Encounter for other preprocedural examination (principal); C50.912 Malignant neoplasm of unspecified site of left female breast | CPT/HCPCS: 93306 ==

== ENCOUNTER 2023-05-27 09:01 | Day surgery (SDC) | payer OTHER, SELFPAY ==
--- NOTE | ~2023-05-27 | IR_ITS ---
CLINICAL HISTORY: Left breast cancer. The patient presents to interventional radiology for placement of a port for chemotherapy. PROCEDURES: 1. Real-time ultrasound-guided access into the right internal jugular vein after documentation of selected vessel patency, and permanent image storing in the patient records. 2. Placement of a 6.6 Cymro single-lumen power port. CLINICIAN: Yomi Fournier PA-C MEDICATIONS: - Versed 1.5 mg, Fentanyl 75 mcg, Lidocaine 1% 10 mL SQ -Antibiotics: Ancef 2g -For additional details, please see nursing flowsheet. Complications: None. Estimated blood loss: <5 ml Specimens: None. Contrast: None. Fluoroscopy time: 0.6 min MODERATE SEDATION TIME: 18 min PROCEDURE NOTE: The procedure, risks, benefits, and alternatives were carefully explained to the patient and written informed consent was obtained. The patient was placed supine on the fluoroscopy table. A timeout was performed. The right neck and chest was prepped and draped in usual sterile fashion. Maximum barrier technique was utilized. Local anesthesia was administered to the access site with 1% lidocaine. Under ultrasound guidance, the right internal jugular vein was accessed with a 5 fr micropuncture set. A 0.035 in wire was advanced into the IVC. A peel-away sheath was advanced over the wire and into the SVC, and the wire was removed. Next, subcutaneous lidocaine was administered to the chest. The port pocket was created after the skin incision, utilizing blunt dissection. Using blunt dissection, a subcutaneous tunnel was created that connects from the port pocket to the venotomy site. Through the peel-away sheath, the 6.6 Cymro port catheter was placed. The catheter position was verified with fluoroscopy to be at the superior vena cava/right atrial junction. The port was connected to the catheter and was placed in the pocket. The venotomy site was closed with a 3-0 Vicryl subcutaneous suture. The port incision site was closed with interrupted 3-0 Vicryl subcutaneous sutures and surgical glue. Prior to closing the skin, 1 g of Ancef solution was placed in the pocket. The port was tested, flushed, and packed with heparin per routine protocol. The patient tolerated the procedure well. The patient was stable after the procedure and was transferred to the PACU. The procedure was performed under moderate sedation and with a dedicated nurse with continuous monitoring of vital signs. A permanent image of the ultrasound the neck and fluoroscopic image of the chest was saved and sent to PACS. FINDINGS: 1. Patent right internal jugular vein 2. Placement of a 6.6 Cymro single lumen power port. 3. Port flushes and aspirates very well with a 10 mL syringe. No pneumothorax. IR/IR cvc insert tunnel w prt/oil well engineer IMPRESSION: Placement of a 6.6 Cymro single-lumen power port. PLAN: - The patient will be discharged home when stable by sedation protocol. - Port may be used immediately. This procedure was performed by Yomi Fournier PA-C, and directly supervised by Dr. Payne
[2023-05-27 09:19] VITALS: BMI 30.4
[2023-05-27 09:25] LABS: Urine Pregnancy NEGATIVE (NEGATIVE)
[2023-05-27 09:26] LABS: UPreg QC Valid YES
[2023-05-27 09:28] VITALS: BP 120/82; PULSE 97; RESP 18; TEMP 36.1; O2SAT 97
[2023-05-27 09:50] VITALS: BMI 30.4
[2023-05-27 09:52] LABS: Prothrombin Time 12.1 SEC (11.1-13.3)
[2023-05-27 09:55] LABS: Partial Thromboplastin Time 29.5 SEC (26.0-36.8)
[2023-05-27 11:40] VITALS: BP 125/88; PULSE 96; RESP 16; TEMP 36.6; O2SAT 99
[2023-05-27 11:59] VITALS: BP 127/82; PULSE 91; RESP 16; TEMP 36.6; O2SAT 99
== END 2023-05-27 12:15 | disposition home or self-care (01) ==
LOC: HO.SSS 09:02
PROVIDERS: Anesthesiology; Physician Assistant Surgical; PCP Student in an Organized Health Care Education/Training Program; Visit Provider Internal Medicine Medical Oncology
DX: C50.912 Malignant neoplasm of unspecified site of left female breast (principal); Z17.0 Estrogen receptor positive status [ER+]; I10 Essential (primary) hypertension; Z79.899 Other long term (current) drug therapy
CPT/HCPCS: 36415; 36561; 81025; 85610; 85730; 99152; C1769; C1788; J0690; J1642; J1644; J2250; J2310; J3010

== ENCOUNTER → 2023-05-27 10:21 | Outpatient (BNV) | payer OTHER, SELFPAY | PROVIDERS: PCP Student in an Organized Health Care Education/Training Program; Visit Provider Physician Assistant Surgical | DX: C50.912 Malignant neoplasm of unspecified site of left female breast (principal) | CPT/HCPCS: 36561; 76937; 77001 ==

== ENCOUNTER 2023-07-06 08:59 | Outpatient (REF) | payer OTHER, SELFPAY ==
--- NOTE | ~2023-07-06 | US_ITS ---
EXAMINATION: US ABDOMEN COMPLETE CLINICAL INFORMATION: Elevated LFTs, patient with recently diagnosed breast cancer.. COMPARISON: None available. TECHNIQUE: Real-time imaging of the abdominal viscera. FINDINGS: PANCREAS: Normal. ABDOMINAL AORTA: The proximal, mid, and distal segments are normal in caliber. INFERIOR VENA CAVA: Visualized portions are normal. LIVER:The liver is normal in size. The liver contour is normal. Parenchymal echogenicity is mildly echogenic due to hepatic steatosis. No focal hepatic lesion. There is no intrahepatic biliary duct dilatation seen. GALLBLADDER: Normal. The gallbladder is physiologically distended without evidence of stones, sludge, polyps, wall thickening or pericholecystic fluid. COMMON BILE DUCT: Normal in caliber measuring 0.4 cm in diameter. RIGHT KIDNEY: Normal. No hydronephrosis. No renal calculi or focal parenchymal lesions. The kidney measures 11 point cm in maximum dimension. LEFT KIDNEY: Normal. No hydronephrosis. No renal calculi or focal parenchymal lesions. The kidney measures 10.5 cm in maximum dimension. SPLEEN: Normal. The spleen measures 8.8 cm in maximum dimension. FREE FLUID: None. US/US abdomen complete IMPRESSION: Mild hepatic steatosis
== END 2023-07-06 09:00 | disposition home or self-care (01) ==
LOC: HO.HMGCX 08:59
PROVIDERS: PCP Student in an Organized Health Care Education/Training Program; Visit Provider Internal Medicine Medical Oncology
DX: R79.89 Other specified abnormal findings of blood chemistry (principal)
CPT/HCPCS: 76700

== ENCOUNTER 2023-08-08 09:33 | Outpatient (REF) | payer OTHER, SELFPAY ==
[2023-08-16 12:49] LABS: HPV mRNA E6/E7 rflx Not Detected (Not Detected)
== END 2023-08-08 09:34 | disposition home or self-care (01) ==
LOC: HO.LNP 09:33
PROVIDERS: Visit Provider Advanced Practice Midwife
DX: Z12.4 Encounter for screening for malignant neoplasm of cervix (principal); Z11.51 Encounter for screening for human papillomavirus (HPV)
CPT/HCPCS: 87624; 88142

== ENCOUNTER 2023-09-08 13:00 | Outpatient (AMB) | payer OTHER, SELFPAY ==
--- NOTE | 2023-09-08 13:01 | MHC.OFFVIS ---
Vital Signs 09/08/23 13:11 Height 5 ft 2 in Weight 165 lb 5.547 oz BMI 30.2 BP 108/74 Blood Pressure Location Rt brachial Position Sitting Pulse 114 H Pulse Source Pulse Oximeter Pulse Oximetry (%) 97 Oxygen Delivery Method Room Air Intake Visit Reasons: referred by Intake Note: Yoandy presents here in office for an initial office visit. CC; Referral states that the pt is here for melena. Pt reports that their sx started approximately 3 months ago. Pt reports that they started chemotherapy approximately 3 mos ago as well. Pt had originally started with constipation which was followed by diarrhea. Pt states that they then noticed a small amount of bright red blood, which became progressively worse over time. Pt reports that they have not been experiencing these sx for the last few days since their most recent chemotherapy appt. Pt reports having nausea as well but is unsure if that is related to their chemotherapy or not. 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 Currently undergoing chemotherapy. Patient is under the care of Dr. Fournier who is sending her for evaluation. Patient was found to have increased liver enzymes after starting a chemotherapy and sent for further evaluation. Patient reports postprandial abdominal pain and bloating. Patient reports that her pain is throughout the whole abdomen. Patient reports feeling constipated then occasionally postprandial diarrhea. Patient reports to have good appetite, however she feels nauseous and thinks that it is related to her chemotherapy. Her levels came down. ALT still remains to be slightly elevated. Patient has normal bilirubin. Patient denies any jaundice. Denies any fever, pruritus. No known family history of hepatic carcinoma. [facility] Medical History Invasive ductal carcinoma of left breast Family History Maternal Grandmother Ovarian cancer Colon cancer Social History Alcohol intake: never Patient Tobacco Use Status: Never used Tobacco Female Reproductive History Menstrual Age of Menarche: 12 Review of Systems Const Denies weight gain and Denies weight loss ENT Reports no additional complaints, Denies dysphagia and Denies odynophagia Card Reports no additional complaints Resp Reports no additional complaints GI Reports abdominal pain, Denies belching, Denies melena, Reports bloating, Reports constipation, Denies dysphagia, Denies excessive flatus, Denies dyspepsia, Denies heartburn, Denies diarrhea, Reports loose stools, Reports nausea, Denies odynophagia and Denies vomiting Reports no additional complaints Musc Reports no additional complaints Neuro Reports no additional complaints Psych Reports no additional complaints Endo Reports no additional complaints Physical Exam Vital Signs: Last Vital Signs Pulse 114 H 09/08/23 13:11 BP 108/74 09/08/23 13:11 Pulse Ox 97 09/08/23 13:11 Oxygen Delivery Method Room Air 09/08/23 13:11 BMI result Body Mass Index 30.2 Const General: healthy appearing and no acute distress Nutritional Appearance: obese Orientation/consciousness: patient oriented x3 Resp Effort & Inspection: normal respiratory effort, able to speak in complete sentences, no tracheal deviation and symmetric chest movement Auscultation: clear to auscultation bilaterally Cardio Rate: regular rate GI Inspection: Yes normal to inspection, No distended and Yes obesity Palpation (GI): Soft to palpation, not firm, nontender and No hepatosplenomegaly present Auscultation: normal bowel sounds General: Yes no CVA tenderness Back/Spine/Pelvis Back: no CVA tenderness Skin General skin exam: elasticity normal, turgor normal and dry skin Neuro General: patient oriented x3 Psych Appearance: grossly normal Mental Status: mental status grossly normal Results Reviewed Results Reviewed: Laboratory Tests 08/30/23 09/06/23 11:09 11:38 Hgb 10.1 L 9.5 L Hct 30.2 L 28.4 L Calcium 10.3 H D 9.8 Total Bilirubin 0.8 0.4 AST 125 H 36 H ALT 247 H 68 H Assessment & Plan Assessment & Plan (1) Transaminitis: Code(s): R74.01 - Elevation of levels of liver transaminase levels (2) Anemia: Code(s): D64.9 - Anemia, unspecified Qualifiers: Anemia type: iron deficiency Iron deficiency anemia type: other iron deficiency Qualified Code(s): D50.8 - Other iron deficiency anemias (3) Postprandial diarrhea: Code(s): K52.9 - Noninfective gastroenteritis and colitis, unspecified (4) Constipation: Code(s): K59.00 - Constipation, unspecified Qualifiers: Constipation type: slow transit constipation Qualified Code(s): K59.01 - Slow transit constipation Plan Will rule out increase liver enzymes, check for autoimmune disorder, Young's, viral hepatitis. Patient CT scan of abdomen, she does complain of abdominal pain and discomfort. Patient is also anemic. She should be sent for colonoscopy as well. Irregular bowel movements and frequent rectal bleeding. Patient will increase fiber in her done yet. Fiber supplement given to patient. Start Senokot in the evening to help her move her bowels. Patient will return in the office in 3 months, sooner on as needed basis. She is agreeable to this plan and verbalizes understanding of instructions. She was given the opportunity to ask questions and all questions answered. Thank you for allowing me to participate in her care Orders: Orders CT abdomen pelvis w IV con 1 Week R79.89 - Other specified abnormal findings of blood chemistry Hepatitis A,B,C Profile 09/08/23 R79.89 - Other specified abnormal findings of blood chemistry Smooth Muscle Antibody 09/08/23 R79.89 - Other specified abnormal findings of blood chemistry C Reactive Protein 09/08/23 K58.9 - Irritable bowel syndrome without diarrhea Alpha Fetoprotein 09/08/23 R79.89 - Other specified abnormal findings of blood chemistry Ferritin 09/08/23 R74.8 - Abnormal levels of other serum enzymes Mitochondrial Antibody 09/08/23 R79.89 - Other specified abnormal findings of blood chemistry IRON PROFILE 09/08/23 D64.9 - Anemia, unspecified TSH reflex Free T4 09/08/23 K59.00 - Constipation, unspecified Vitamin B12 and Folate 09/08/23 R19.7 - Diarrhea, unspecified Ceruloplasmin 09/08/23 R79.89 - Other specified abnormal findings of blood chemistry Medications: New methylcellulose (laxative) (Citrucel) take it with full glass of water 500 mg PO DAILY 90 tabs 2RF K59.00 - Constipation, unspecified sennosides (Natural Senna Laxative) 17.2 mg (2 x 8.6 mg) PO BEDTIME 60 tabs 3RF constipation K59.00 - Constipation, unspecified famotidine 40 mg PO BEDTIME 30 tabs 3RF K21.9 - Gastro-esophageal reflux disease without esophagitis Coding Level of Care Code New Pt Level 4 (08597) Diagnoses Transaminitis R74.01 Other iron deficiency anemia D50.8 Anemia type: iron deficiency Iron deficiency anemia type: other iron deficiency Postprandial diarrhea K52.9 Slow transit constipation K59.01 Constipation type: slow transit constipation Time Spent (min) 45 Comment 30 minutes spent with patient and additional 15 minutes spent reviewing her records
[2023-09-08 13:11] VITALS: BP 108/74; PULSE 114; O2SAT 97; BMI 30.2
== END 2023-09-08 14:15 | disposition home or self-care (01) ==
PROVIDERS: PCP Student in an Organized Health Care Education/Training Program; Visit Provider Nurse Practitioner Family
DX: R74.01 Elevation of levels of liver transaminase levels (principal); D50.8 Other iron deficiency anemias; K52.9 Noninfective gastroenteritis and colitis, unspecified; K59.01 Slow transit constipation
CPT/HCPCS: 99204

== ENCOUNTER → 2023-09-08 13:00 | Outpatient (BNVA) | payer OTHER, SELFPAY | PROVIDERS: PCP Student in an Organized Health Care Education/Training Program; Visit Provider Nurse Practitioner Family ==

== ENCOUNTER 2023-09-26 14:08 | Outpatient (REF) | payer OTHER, SELFPAY ==
--- NOTE | ~2023-09-26 | CT_ITS ---
EXAMINATION: CT ABDOMEN AND PELVIS WITH CONTRAST CLINICAL INFORMATION: Elevated liver function testing. History of left breast cancer COMPARISON: None available. TECHNIQUE: Multidetector volumetric images were obtained from the superior aspect of the liver through the pubic symphysis following administration 85 mL of Omnipaque 350 intravenous contrast. Sagittal and coronal reformatted images were obtained on the technologist's workstation. Oral contrast: Yes This CT examination was performed using dose optimization techniques as appropriate, variously including the following: *Automated exposure control *Adjustment of mA and/or kV according to patient size (this includes techniques or standardized protocols for targeted exams where dose is matched to indication/reason for exam; i.e. extremities or head) *Use of iterative reconstruction technique DLP: 430 mGy-cm FINDINGS: LUNG BASES: No suspicious abnormality in the visualized lower chest LIVER, GALLBLADDER, AND BILIARY TREE: There is diffuse low-attenuation throughout the liver consistent with fatty change. No suspicious mass. The liver contour is smooth. The gallbladder is not distended. There is no definite opaque gallstone. No biliary dilation is demonstrated PANCREAS: No suspicious abnormality with a prominent uncinate process. This is likely a normal variant SPLEEN: Within normal limits ADRENAL GLANDS: No suspicious abnormality KIDNEYS AND URETERS: There is no dilation of the urinary collecting system on either side. There is no suspicious renal mass. The nephrograms are symmetric. There is no opaque urinary calculus. BLADDER: The bladder is not well-distended. No focal abnormality. GASTROINTESTINAL TRACT: Oral contrast is present within the colon. There is an abnormality associated with the medial aspect of the most proximal colon. There is some irregular wall thickening suspected and there is some abnormal density in the soft tissues immediately medial to the ascending colon. Possibilities include a mass with adjacent adenopathy. Alternatively a somewhat atypical right-sided diverticulitis could give this appearance. Further evaluation recommended ABDOMINAL WALL: No significant hernia is appreciated. LYMPH NODES: As described possible pericolonic lymph node in the right lower quadrant. No significant free intraperitoneal fluid. VASCULAR: There is no abdominal aortic aneurysm. The portal vein enhances. PELVIC VISCERA: The uterus is anteverted. No suspicious adnexal mass or collection. OSSEOUS STRUCTURES: No suspicious focal lesion. Bilateral L5 spondylolysis CT/CT abdomen pelvis w IV con IMPRESSION: There is diffuse fatty change. No cholelithiasis or biliary dilation demonstrated. There is an abnormality in and possibly adjacent to the ascending colon. This has irregular contours. Further evaluation warranted. Consider endoscopic assessment. Fleischner guidelines were followed.
[2023-09-26] MEDS: iohexoL 350 MG/ML 100 ML INFUS..BTL 85 ML IV (16:35)
[2023-09-26] MEDS: Barium Sulfate Oral (Vanilla) 450 ML ORAL.SUSP 900 ML PO (16:35)
== END 2023-09-26 14:09 | disposition home or self-care (01) ==
LOC: HO.CT 14:08
PROVIDERS: PCP Student in an Organized Health Care Education/Training Program; Visit Provider Internal Medicine Medical Oncology
DX: R79.89 Other specified abnormal findings of blood chemistry (principal)
CPT/HCPCS: 74177; Q9967

== ENCOUNTER 2023-10-10 09:37 | Outpatient (REF) | payer OTHER, SELFPAY ==
--- NOTE | ~2023-10-10 | MR_ITS ---
EXAMINATION: MR BREAST WITHOUT AND WITH CONTRAST, BILATERAL CLINICAL INFORMATION: Left breast cancer status post neoadjuvant chemotherapy. COMPARISON: MRI 05/09/2023 TECHNIQUE: Imaging was performed with a dedicated breast coil. Prior to the administration of contrast, bilateral axial T1 and bilateral axial T2 weighted sequences were obtained. After the uneventful administration of?7.5 mL of Gadavist, dynamic contrast-enhanced VIBRANT series through the breasts in the axial plane were performed. Subtracted images were performed and reviewed. A delayed sagittal sequence through both breasts was acquired. Additionally, CAD post-processing, including maximum intensity projections, 3-D reconstructions and kinetic analysis, were performed an independent workstation and reviewed by the interpreting radiologist is a portion of this exam. FINDINGS: The patient's fibroglandular tissue demonstrates moderate background enhancement. LEFT BREAST: Persistent small enhancing mass adjacent to the biopsy proven malignancy site in the 7:00 position of the left breast, 3 cm from the nipple, measuring 6 mm in size, previously 1.1 cm. Additional suspicious area of enhancement with persistent enhancement on the current exam at 7:00, 7 cm from the nipple measuring 1.6 x 0.7 cm, previously 1.9 x 1.9 cm. Additional enhancing masses demonstrated in the inferior quadrants of the left breast are no longer seen. No new suspicious nonmass or mass enhancement. No suspicious enhancement adjacent to the retroareolar region. Review of the kinetic images demonstrates no additional suspicious findings. RIGHT BREAST: No suspicious masslike or non-masslike enhancement. No abnormal skin thickening or nipple retraction. No abnormal architectural distortion. Review of the T2 weighted images demonstrates no fibrocystic changes or dilated ducts. Review of kinetic images reveals no additional findings. There is no suspicious internal mammary chain or axillary adenopathy. Limited views of the chest and abdomen are unremarkable. MR/MR breast BI wo/w con IMPRESSION: Significant interval reduction in the 2 dominant areas of enhancement in the lower inner quadrant of left breast. Findings consistent with a good response to neoadjuvant chemotherapy. ASSESSMENT: LEFT BREAST: B-RADS 6 - Known Malignancy - Appropriate action should be taken. RIGHT BREAST: BI-RADS 1-Negative RECOMMENDATIONS: Appropriate action.
[2023-10-10] MEDS: gadobutroL 7.5 ML VIAL IVPUSH (11:01)
== END 2023-10-10 09:38 | disposition home or self-care (01) ==
LOC: HO.MRI 09:37
PROVIDERS: PCP Student in an Organized Health Care Education/Training Program; Visit Provider Internal Medicine Medical Oncology
DX: C50.912 Malignant neoplasm of unspecified site of left female breast (principal)
CPT/HCPCS: 77049; A9585

== ENCOUNTER 2023-10-14 09:07 | Outpatient (AMB) | payer OTHER, SELFPAY ==
--- NOTE | 2023-10-14 09:11 | A.OFFVIS_ITS ---
Vital Signs 10/14/23 09:18 Height 5 ft 2 in Weight 166 lb 4 oz BMI 30.4 BP 132/81 Blood Pressure Location Lt brachial Position Sitting Pulse 113 H Intake Visit Reasons: Breast cancer surgery Intake Note: Patient is seen in office for breast exam, following Invasive ductal carcinoma of left breast. Pt c/o: is schedule for last chemo session next Tuesday, had MRI done has not been read yet and is due for mm in 10/2023, denies any concerns here to discuss next steps MRI:10/10/23 Hand Silvering Supervisor: Hand Silvering Supervisor Present Accompanied by: Self / Same As Patient Allergies No Known Allergies Allergy (Verified 10/14/23 09:19) HPI Comments Details: 38-year-old female patient presenting with a palpable mass noted on self examination at approximately the 09:00 o'clock position of the left breast just medial to the nipple-areolar complex. This was 1st identified in December 2022 and had not changed significantly since then. She denies a family history of breast problems or breast cancer. She is . Mammogram and ultrasound performed at the [facility] revealed several areas of density and microcalcifications in the left breast felt to be highly suggestive of breast cancer (BI-RADS 5). She underwent ultrasound-guided core biopsies of the 2 most suspicious areas in the left breast. Pathology of the lesion located in the 02:00 o'clock location revealed PASH, however the lesion in the 6 o'clock position revealed invasive ductal carcinoma, ER/NC positive, HER2 Abimbola negative, Ki-67 25% (high). MRI revealed multiple suspicious nodules in multiple quadrants of the left breast felt to be very suspicious for multicentric disease. No enlarged lymph nodes no lesions on the right breast were identified. She was evaluated by Dr. Fournier and decision made to proceed with neoadjuvant chemotherapy. She received AC x4 cycles followed by weekly Taxol times 12 cycles (her last cycle will be next week). She recently underwent a repeat MRI, the results of which are not available to time of this visit. She presents to discuss the possibility of proceeding to lumpectomy versus mastectomy. [facility] Medical History Invasive ductal carcinoma of left breast Family History Maternal Grandmother Ovarian cancer Colon cancer Social History Alcohol intake: never Patient Tobacco Use Status: Never used Tobacco Female Reproductive History Menstrual Age of Menarche: 12 Review of Systems Const All systems reviewed & are unremarkable except as noted in HPI and below Physical Exam Const General: cooperative and no acute distress Nutritional Appearance: well nourished Orientation/consciousness: patient oriented x3 Limitations: no limitations HEENT Head: Yes normocephalic and Yes atraumatic Ears: hearing grossly normal bilaterally Chest Other: Right breast: No palpable mass, skin change, nipple discharge or enlarged lymph nodes, Port-A-Cath in place Left breast: No skin change, nipple retraction, nipple discharge, palpable mass or enlarged lymph nodes appreciated. No definite evidence of persistent tumor to my examination. Resp Effort & Inspection: normal respiratory effort, no audible wheezes, no cough and no respiratory distress Cardio Jugular venous distension: no JVD GI Inspection: Yes normal to inspection Skin Other: Warm, dry, no rash Neuro General: patient oriented x3 Extrem General: Yes no clubbing, cyanosis or edema Assessment & Plan Assessment & Plan (1) Invasive ductal carcinoma of left breast: Code(s): C50.912 - Malignant neoplasm of unspecified site of left female breast Category: Medical Plan 38-year-old female patient presenting with a known left breast invasive ductal carcinoma. MRI reveals probable multicentric disease which would not be amenable to lumpectomy. Patient has undergone neoadjuvant chemotherapy under the direction of Dr. Fournier. She underwent MRI on 10/10/2023 which has not been formally read by Radiology the time of this dictation. Examination today reveals no definite evidence of a palpable mass in the left breast with a apparent good result from the neoadjuvant treatment. Based on physical findings she should be a good candidate for lumpectomy with sentinel node biopsy. She is scheduled for mammogram and ultrasound in October. We will await the final reading of the MRI and upcoming mammogram and ultrasound results and then discuss surgical treatment options. She will return in 1 month. Coding Level of Care Code Est Pt Level 3 (49878) Diagnoses Invasive ductal carcinoma of left breast C50.912
[2023-10-14 09:18] VITALS: BP 132/81; PULSE 113; BMI 30.4
== END 2023-10-14 09:31 | disposition home or self-care (01) ==
PROVIDERS: PCP Student in an Organized Health Care Education/Training Program; Visit Provider Surgery
DX: C50.912 Malignant neoplasm of unspecified site of left female breast (principal)
CPT/HCPCS: 99213

== ENCOUNTER → 2023-10-14 09:07 | Outpatient (BNVA) | payer OTHER, SELFPAY | PROVIDERS: PCP Student in an Organized Health Care Education/Training Program; Visit Provider Surgery ==

== ENCOUNTER 2023-10-20 11:02 | Outpatient (REF) | payer OTHER, SELFPAY ==
[2023-10-20 11:42] LABS: Hematocrit 36.2 % (37.0-47.0); Hemoglobin 11.9 g/dl (12.0-16.0); Mean Corpuscular HGB Conc 32.9 g/dl (31.0-35.0); Mean Corpuscular Hemoglobin 31.4 pg (27.0-33.0); Mean Corpuscular Volume 95.5 fL (80.0-98.0); Mean Platelet Volume 10.8 fL (9.4-12.3); Platelet Count 214 X10*3/uL (160-400); Red Blood Count 3.79 X10*6/uL (4.20-5.50); Red Cell Distribution Width 13.8 % (11.0-16.0); White Blood Count 7.6 X10*3/uL (4.8-10.8)
[2023-10-20 11:47] LABS: Estimated Average Glucose 105 mg/dL; Hemoglobin A1c % 5.3 % (<6.0)
[2023-10-20 12:18] LABS: Alanine Aminotransferase 45 U/L (0-31); Albumin Level 4.4 g/dL (3.5-5.0); Alkaline Phosphatase 104 U/L (39-117); Anion Gap 14 (12-20); Aspartate Amino Transferase 27 U/L (5-31); Bilirubin Total 0.5 mg/dL (0.0-1.0); Blood Urea Nitrogen 14 mg/dL (9-16); C Reactive Protein 0.18 mg/dL (< or = 0.50); Calcium 10.2 mg/dL (8.4-10.2); Carbon Dioxide 25 mmol/L (22-29); Chloride 106 mmol/L (96-108); Cholesterol 263 mg/dL (<200); Estimated Glomerular Filt Rate > 60; Glucose Random 105 mg/dL (60-115); HDL Cholesterol 54 mg/dL (>40); Iron 174 mcg/dL (30-160); LDL Cholesterol Calculated 148 mg/dL (<100); Percent Iron Saturation 44 % (15-50); Potassium 4.1 mmol/L (3.3-5.1); Sodium 141 mmol/L (135-145); Total Iron Binding Capacity 393 mcg/dL (228-428); Total Protein 7.4 g/dL (6.5-8.0); Triglycerides 306 mg/dL (<150); Unsaturated Iron Binding 219 ug/dL
[2023-10-20 12:35] LABS: Ferritin 155 ng/mL (10-122); TSH reflex Free T4 1.84 uIU/mL (0.32-4.0); Vitamin D 25-OH Total 41.1 ng/mL (>30)
[2023-10-20 12:46] LABS: Folate 8.6 ng/mL (> or = 4.0); Vitamin B12 293 pg/mL (200-900)
[2023-10-20 13:03] LABS: Creatinine Urine 263.01 mg/dL; Microalbum/Creatinine Ratio Ur 4.9 ug/mg cr (<30)
[2023-10-21 09:20] LABS: HBS Num1 > 1000.00 mIU/mL (0-7.99); HBc Num1 0.15 S/CO (0.00-0.79); HBsAGNum1 0.26 S/CO (0.00-0.99); Hepatitis A Antibody IgM 0.19 Index (0-0.79); Hepatitis B Core Antibody Nonreactive (Nonreactive); Hepatitis B Surface Antigen Negative (Negative); ~HepC Num1 0.08 S/CO (0.00-0.79); ~Hepatitis A Antibody IgM Nonreactive (Nonreactive); ~Hepatitis B Surface Antibody REACTIVE (Nonreactive); ~Hepatitis C Antibody Nonreactive (Nonreactive)
[2023-10-22 02:14] LABS: Ceruloplasmin 27 mg/dL (14-48)
[2023-10-24 12:08] LABS: Alpha Fetoprotein 4.5 ng/mL
[2023-10-25 14:38] LABS: Smooth Muscle Antibody <20 U (<20)
[2023-10-25 15:13] LABS: Mitochondrial Antibodies NEGATIVE (NEGATIVE)
== END 2023-10-20 11:03 | disposition home or self-care (01) ==
LOC: HO.LAB 11:02
PROVIDERS: PCP Student in an Organized Health Care Education/Training Program; Visit Provider Nurse Practitioner Family
DX: Z00.00 Encounter for general adult medical examination without abnormal findings (principal); R79.89 Other specified abnormal findings of blood chemistry; R74.8 Abnormal levels of other serum enzymes; K59.00 Constipation, unspecified; R19.7 Diarrhea, unspecified; K58.9 Irritable bowel syndrome, unspecified; D64.9 Anemia, unspecified
CPT/HCPCS: 36415; 80053; 80061; 82043; 82105; 82306; 82390; 82570; 82607; 82728; 82746; 83036; 83540; 84443; 85027; 86015; 86140; 86381; 86704; 86706; 86709; 86803; 87340

== ENCOUNTER 2023-11-02 10:58 | Outpatient (REF) | payer OTHER, SELFPAY ==
--- NOTE | ~2023-11-02 | US_ITS ---
EXAMINATION: MM DIAGNOSTIC DIGITAL BREAST TOMOSYNTHESIS, LEFT US BREAST LIMITED, LEFT MAMMOGRAPHY: CLINICAL INFORMATION: Follow-up multicentric sites of IDC left breast status post neoadjuvant chemotherapy. COMPARISON: MRI breast 10/10/2023, which is far more sensitive and specific than mammography or ultrasound. MRI breast 05/09/2023. Left mammography 04/28/2023, and bilateral mammography 04/25/2023. Left ultrasound 04/16/2023, and ultrasound-guided biopsy left x 2 sites (6:00 axis and 2:00 axis), 04/28/2023. TECHNIQUE: Digital breast tomosynthesis is performed in the following views: Full-field 3-D digital left CC, ML views, and 2-D spot magnification left CC and ML views. This was followed by targeted left breast ultrasound focused to the 6 and 7:00 axes left breast FINDINGS: The breasts are heterogeneously dense, which may obscure small masses (ACR BI-RADS breast composition Category c). Please refer to the recent MRI which is far more sensitive and specific. The the left 2:00 and 8:00 lesions are no longer well seen on mammography. The 6:00 biopsied mass with adjacent open coil clip is notably smaller, currently measuring approximately 7 mm in size. This correlates well with the MRI. The 7:00 not biopsied mass with small satellite lesion also appears visually significantly smaller. Refer to the MRI report. ULTRASOUND: CLINICAL INFORMATION: As above. COMPARISON: 04/25/2023 left breast ultrasound. 04/28/2023 left breast core biopsy via ultrasound x 2. TECHNIQUE: Targeted sonographic evaluation was performed using a high frequency linear transducer. Attention left breast was given to the 7:00 in the 6:00 axes were previously lesions were noted. Selected archived documentation. FINDINGS: LEFT BREAST: -Residual hypoechoic focus at 6:00 surrounding the biopsy clip most likely hydromark material from the biopsy clip. There is an adjacent 5 x 3 cm hypoechoic oval mass, most likely residual tumor, similar in size to the recent MRI. -At 7:00, no definite residual mass could be detected. Please refer to the recent MRI. US/US breast LT limited mamm only IMPRESSION: 1. Significant reduction in size of all lesions seen on mammography. Please refer to the recent MRI which is far more sensitive and specific. 2. Left breast ultrasound demonstrating small 5 x 3 mm hypoechoic residual 6:00 mass abutting the biopsy clip. No definite residual mass seen at 7:00 axis, or at the other sites as mentioned above. Again, refer to the recent MRI which is far more sensitive and specific. 3. No new suspicious findings left breast. OVERALL ASSESSMENT: Mammography: BI-RADS 6 - Known biopsy proven malignancy Ultrasound: BI-RADS 6 - Known biopsy proven malignancy RECOMMENDATION: 1. Continued clinical and surgical management recommended. This patient's information was entered into a reminder system with a target due date for their next mammogram. .
== END 2023-11-02 10:59 | disposition home or self-care (01) ==
LOC: HO.MAMMO 10:58
PROVIDERS: PCP Student in an Organized Health Care Education/Training Program; Visit Provider Internal Medicine Medical Oncology
DX: Z85.3 Personal history of malignant neoplasm of breast (principal)
CPT/HCPCS: 76642; 77061; 77065

== ENCOUNTER → 2023-11-02 11:30 | Outpatient (BNV) | payer OTHER, SELFPAY | PROVIDERS: PCP Student in an Organized Health Care Education/Training Program; Visit Provider Radiology Diagnostic Radiology | DX: C50.912 Malignant neoplasm of unspecified site of left female breast (principal) | CPT/HCPCS: 76642; 77061; 77065 ==

== ENCOUNTER 2023-11-04 11:52 | Outpatient (REF) | payer OTHER, SELFPAY ==
[2023-11-04 12:26] LABS: Lipase 22 U/L (8-78)
== END 2023-11-04 11:53 | disposition home or self-care (01) ==
LOC: HO.LAB 11:52
PROVIDERS: PCP Student in an Organized Health Care Education/Training Program; Visit Provider Nurse Practitioner Family
DX: R10.9 Unspecified abdominal pain (principal)
CPT/HCPCS: 36415; 83690

== ENCOUNTER 2023-11-08 10:33 | Day surgery (SDC) | payer OTHER, SELFPAY ==
--- NOTE | 2023-11-07 13:07 | HO.ANESPROP2 ---
Documented by User: Kathy Orona NP 11/07/23 13:10 HPI - Anesthesia Eval Consult details Narrative: 38yo F for Colonoscopy PMFSH Active Problems Active Problems: All Active Problems Invasive ductal carcinoma of left breast (Acute) Abnormal ultrasound of breast (Acute) Abnormal mammogram of left breast (Acute) Past Medical History Medical History HTN (hypertension) Chemotherapy management, encounter for Port-A-Cath in place Invasive ductal carcinoma of left breast Family History Family History Maternal Grandmother Ovarian cancer Colon cancer Social History Social History Alcohol intake: never Patient Tobacco Use Status: Never used Tobacco Are you DNR?: No Advance Directives: No Advance Directives Information Provided: Yes Recently lost weight without trying: Yes Patient : No Meds Allergies Allergy/AdvReac Type Severity Reaction Status Date / Time No Known Allergies Allergy Verified 10/14/23 09:19 Home Medications ?Medication ?Instructions ?Recorded ?Confirmed ?Last Taken ?Type loratadine 10 mg tablet 10 mg PO DAILY PRN allergies 09/08/23 11/08/23 Unknown History Exam Pertinent Lab Results Pertinent Lab Results: Laboratory Tests 11/01/23 14:09 WBC 7.9 Hgb 12.6 Hct 37.8 Plt Count 254 Sodium 140 Potassium 4.3 Chloride 106 Carbon Dioxide 26 BUN 11 Creatinine 0.82 Narrative Narrative: ECHO 2023 Conclusions: - The left ventricular systolic function is normal. The calculated ejection fraction is 58% by biplane method. - No obvious valvular pathology seen on this study. Assessment and Plan Assessment Anesthesia Assessment: Chart Reviewed Documented by User: Arline Benoit MD 11/08/23 13:35 PMFSH Past Medical History Medical History HTN (hypertension) Chemotherapy management, encounter for Port-A-Cath in place Invasive ductal carcinoma of left breast Family History Family History Maternal Grandmother Ovarian cancer Colon cancer Family history of problems with anesthesia: No Surgical History History of Problems with Anesthesia: No Social History Social History Alcohol intake: never Patient Tobacco Use Status: Never used Tobacco Are you DNR?: No Advance Directives: No Advance Directives Information Provided: Yes Recently lost weight without trying: Yes Patient : No Meds Allergies Allergy/AdvReac Type Severity Reaction Status Date / Time No Known Allergies Allergy Verified 10/14/23 09:19 Home Medications ?Medication ?Instructions ?Recorded ?Confirmed ?Last Taken ?Type loratadine 10 mg tablet 10 mg PO DAILY PRN allergies 09/08/23 11/08/23 Unknown History Exam Airway Mallampati Class: II TM Dist: >3cm Neck ROM: Full Heart: rrr Lungs: cta Assessment and Plan Assessment Anesthesia Assessment: Anesthesia Plan Discussed Final Anesthetic Review Family History of Problems with Anesthesia: No History of Problems with Anesthesia: No NPO: Yes ASA Class: III Final Preanesthetic Review: No Changes in Pt Med Stat, Meds/Allgs Chart Reviewed, Consent Obtained/Reviewed and Anes Risks/Benef Reviewed Patient Risk: Intermediate Procedure Risk: Low Anesthetic Plan Anesthetic Plan: MAC: Disposition: Standard PACU
[2023-11-08 13:01] VITALS: BP 126/92; PULSE 102; RESP 18; TEMP 36.4; O2SAT 96; BMI 29.8
[2023-11-08 13:10] LABS: UPreg QC Valid YES; Urine Pregnancy NEGATIVE (NEGATIVE)
[2023-11-08] MEDS: Lactated Ringers 1,000 ML 100 ML IVCONT (13:24)
--- NOTE | 2023-11-08 14:01 | P.HPSUR_ITS ---
Pre-Procedural Eval Section A - 24 Hr Update-Section A only Date of Service: 11/08/23 Section B - Complete if H&P > 30 days Chief Complaint: Slow transit constipation,anemia, Relevant Family History (Specify if Yes): No Relevant Social History: None Present Medications: see Short Stay Collaborative assessment Medical History: Significant History (HTN (hypertension) Chemotherapy management, encounter for Port-A-Cath in place Invasive ductal carcinoma of left breast) History of Previous Operations: Relevant previous surgery/procedure and date(s) (hortencia cath ) Allergies: Allergies Allergy/AdvReac Type Severity Reaction Status Date / Time No Known Allergies Allergy Verified 10/14/23 09:19 Review of Systems Sugical H&P ROS: Negative: Constitution, Cardiovascular, Respiratory, Neurological, Psychiatric, Hem-Onc, Allergic/Immunologic, Gastrointestinal, G enitourinary, Musculoskeletal, Integumentary, Endocrine and Eyes/Ears/Nose/Throat Exam Surgical H&P Exam: Normal: HEENT, Normal: Heart, Normal: Lungs, Normal: Extremities, Normal: Abdomen, Normal: Skin and Normal: Neurological Plan Diagnosis/Plan: Unchanged I have reviewed the history and physical and performed a pertinent physical examination on my patient. No changes have occurred unless specified. Time Spent With Patient Time: Total time managing care of this patient today ____ minutes.
--- NOTE | 2023-11-08 14:27 | HO.OPN-COLON ---
Colonoscopy Operative Note Operative Note Date of Service: 11/08/23 Narrative: Operative Information Procedure Description: Colonoscopy Indication: Anesthesia: MAC COLONOSCOPY Instrument: Olympus variable stiffness pediatric scope 190L Colonoscopy Monitoring: Vital signs and clinical assessment, continuous EKG monitoring, Pulse oximetry, Carbon Dioxide monitoring and blood pressure monitoring were done throughout the procedure. Colon withdrawal time was 11 minutes. Procedure: The patient was placed in the left lateral decubitis position and pre-procedure medications were administered. After a digital rectal examination of the ano-rectum, the video colonoscope was inserted into the rectum and advanced through the colon to the cecum/TI. The colonoscope was slowly withdrawn in a retrograde panoramic fashion and the colon mucosa was carefully examined including a retroflexed view of the rectum. Findings and interventions are described below. Procedure Difficulty: easy Findings: Terminal Ileum-normal Cecum: prominent fold in cecum, bx taken Ascending Colon: normal Transverse Colon -normal Descending Colon:normal Sigmoid Colon: mild patchy erythema and granularity, bx taken Rectum: Retroflexion with small internal hemorrhoids seen, grade I Anorectum - normal Intervention: biopsy forceps -cold Colon preparation: Barnard Bowel Preparation Scale Right colon; 2 Transverse colon: 2 Left colon; 2 (0 = Unprepared colon segment with mucosa not seen due to solid stool that cannot be cleared. 1 = Portion of mucosa of the colon segment seen, but other areas of the colon segment not well seen due to staining, residual stool and/or opaque liquid. 2 = Minor amount of residual staining, small fragments of stool and/or opaque liquid, but mucosa of colon segment seen well. 3 = Entire mucosa of colon segment seen well with no residual staining, small fragments of stool or opaque liquid) Impression and Post Procedure Diagnosis: internal hemorrhoids Plan: High fiber diet leaflet Avoid straining at stool, epsom salts and sitz bath, anusol supps or cream Repeat Colonoscopy aged 45 for screening or earlier if clinically indicated Above findings were reviewed with the patient and relevant handouts were provided if indicated.
[2023-11-08 14:33] VITALS: BP 114/68; PULSE 104; RESP 12; TEMP 36.3; O2SAT 98
[2023-11-08 14:48] VITALS: BP 112/59; PULSE 91; RESP 12; O2SAT 97
[2023-11-08 15:03] VITALS: BP 146/99; PULSE 96; RESP 12; TEMP 36.3; O2SAT 98
== END 2023-11-08 15:35 | disposition home or self-care (01) ==
PROVIDERS: Nurse Practitioner; PCP Student in an Organized Health Care Education/Training Program; Visit Provider Internal Medicine Gastroenterology
PROC: 0DJD8ZZ Inspection of Lower Intestinal Tract, Via Natural or Artificial Opening Endoscopic (ICD-10-PCS; CPT 45378; principal; 2023-11-08 14:10)
DX: D50.8 Other iron deficiency anemias (principal); K59.01 Slow transit constipation; R11.0 Nausea; R74.01 Elevation of levels of liver transaminase levels; K52.9 Noninfective gastroenteritis and colitis, unspecified; K64.0 First degree hemorrhoids; I10 Essential (primary) hypertension; C50.912 Malignant neoplasm of unspecified site of left female breast; Z79.60 Long term (current) use of unspecified immunomodulators and immunosuppressants; Z95.828 Presence of other vascular implants and grafts; Z79.899 Other long term (current) drug therapy
CPT/HCPCS: 45380; 81025; 88305; J2250; J2704

== ENCOUNTER → 2023-11-08 10:33 | Outpatient (BNV) | payer OTHER, SELFPAY | PROVIDERS: PCP Student in an Organized Health Care Education/Training Program; Visit Provider Internal Medicine Gastroenterology | DX: D50.8 Other iron deficiency anemias (principal); K59.01 Slow transit constipation; K64.0 First degree hemorrhoids; K52.89 Other specified noninfective gastroenteritis and colitis | CPT/HCPCS: 45380 ==

== ENCOUNTER 2023-11-15 09:44 | Outpatient (AMB) | payer OTHER, SELFPAY ==
--- NOTE | 2023-11-15 09:48 | A.OFFVIS_ITS ---
Vital Signs 11/15/23 09:55 Height 5 ft 2 in Weight 165 lb BMI 30.2 BP 137/67 Blood Pressure Location Lt brachial Position Sitting Pulse 111 H Intake Visit Reasons: 1 mth follow up Breast cancer surgery Intake Note: Patient is seen in office for one month follow up visit, MRI and MM results/discuss surgery. Pt c/o: done with chemotherapy, depending on surgery they will discuss if she will get radiation mm/us:11/02/23 MRI:10/10/23 Skein Winder Required: No Accompanied by: Self / Same As Patient Allergies No Known Allergies Allergy (Verified 11/15/23 09:53) HPI Comments Details: 38-year-old female patient presenting with a palpable mass noted on self examination at approximately the 09:00 o'clock position of the left breast just medial to the nipple-areolar complex. This was 1st identified in December 2022 and had not changed significantly since then. She denies a family history of breast problems or breast cancer. She is . Mammogram and ultrasound performed at the [facility] revealed several areas of density and microcalcifications in the left breast felt to be highly suggestive of breast cancer (BI-RADS 5). She underwent ultrasound-guided core biopsies of the 2 most suspicious areas in the left breast. Pathology of the lesion located in the 02:00 o'clock location revealed PASH, however the lesion in the 6 o'clock position revealed invasive ductal carcinoma, ER/MO positive, HER2 Abimbola negative, Ki-67 25% (high). MRI revealed multiple suspicious nodules in multiple quadrants of the left breast felt to be very suspicious for multicentric disease. No enlarged lymph nodes no lesions on the right breast were identified. She was evaluated by Dr. Fournier and decision made to proceed with neoadjuvant chemotherapy. She received AC x4 cycles followed by weekly Taxol times 12 cycles (her last cycle will be next week). She recently underwent a repeat MRI, the results of which are not available to time of this visit. She presents to discuss the possibility of proceeding to lumpectomy versus mastectomy. [facility] Medical History (Updated 11/15/23 @ 10:18 by Jan Donald MD) Chemotherapy management, encounter for HTN (hypertension) Invasive ductal carcinoma of left breast Family History Paternal Grandmother Ovarian cancer Colon cancer Social History Alcohol intake: never Patient Tobacco Use Status: Never used Tobacco Female Reproductive History Menstrual Age of Menarche: 12 Review of Systems Const All systems reviewed & are unremarkable except as noted in HPI and below Physical Exam Const General: cooperative and no acute distress Nutritional Appearance: well nourished Orientation/consciousness: patient oriented x3 Limitations: no limitations HEENT Head: Yes normocephalic and Yes atraumatic Ears: hearing grossly normal bilaterally Chest Other: Exam deferred Resp Effort & Inspection: normal respiratory effort, no audible wheezes, no cough and no respiratory distress Cardio Jugular venous distension: no JVD GI Inspection: Yes normal to inspection Skin Other: Warm, dry, no rash Neuro General: patient oriented x3 Extrem General: Yes no clubbing, cyanosis or edema Assessment & Plan Assessment & Plan (1) Invasive ductal carcinoma of left breast: Code(s): C50.912 - Malignant neoplasm of unspecified site of left female breast Category: Medical Plan 38-year-old female patient presenting with a known left breast invasive ductal carcinoma. She has now completed chemotherapy and returns to discuss her surgical options. MRI was reviewed which revealed 2 areas somewhat which are markedly smaller from the previous MRI at appear amenable to terese mpectomy. Both are roughly in the 6-7 o'clock location of the left breast. I recommended a left breast lumpectomy with left axillary sentinel node biopsy. After discussion of the procedure, risks, and alternatives, she consents to the surgery. This will be scheduled as a short-stay surgery. Coding Level of Care Code Est Pt Level 4 (24477) Diagnoses Invasive ductal carcinoma of left breast C50.912
[2023-11-15 09:55] VITALS: BP 137/67; PULSE 111; BMI 30.2
== END 2023-11-15 10:02 | disposition home or self-care (01) ==
PROVIDERS: PCP Student in an Organized Health Care Education/Training Program; Visit Provider Surgery
DX: C50.912 Malignant neoplasm of unspecified site of left female breast (principal)
CPT/HCPCS: 99214

== ENCOUNTER → 2023-11-15 09:44 | Outpatient (BNVA) | payer OTHER, SELFPAY | PROVIDERS: PCP Student in an Organized Health Care Education/Training Program; Visit Provider Surgery ==

== ENCOUNTER 2023-11-16 08:36 | Outpatient (AMB) | payer OTHER, SELFPAY ==
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
[2023-11-16 08:53] VITALS: BP 114/78; PULSE 112; O2SAT 98; BMI 30.2
== END 2023-11-16 09:44 | disposition home or self-care (01) ==
PROVIDERS: PCP Student in an Organized Health Care Education/Training Program; Visit Provider Nurse Practitioner Family
DX: R74.01 Elevation of levels of liver transaminase levels (principal); D64.9 Anemia, unspecified; K52.9 Noninfective gastroenteritis and colitis, unspecified; K59.01 Slow transit constipation
CPT/HCPCS: 99214

== ENCOUNTER → 2023-11-16 08:36 | Outpatient (BNVA) | payer OTHER, SELFPAY | PROVIDERS: PCP Student in an Organized Health Care Education/Training Program; Visit Provider Nurse Practitioner Family ==

== ENCOUNTER 2023-11-23 07:48 | Outpatient (REF) | payer OTHER, SELFPAY ==
--- NOTE | ~2023-11-23 | MM_ITS ---
EXAMINATION: MM MAMMOGRAM GUIDED RFID LOCALIZATION BREAST, LEFT CLINICAL INFORMATION: Multicentric left breast CA status post neoadjuvant chemotherapy. Excellent response from neoadjuvant therapy. Localization of 7:00 open coil biopsy clip at site of minimal residual disease as per MRI 10/10/2023. COMPARISON: MRI breast 10/10/2023, 05/09/2023. Left mammography 11/02/2023, 04/28/2023, and bilateral mammography 04/25/2023. Left ultrasound 11/02/2023, 04/16/2023, and ultrasound-guided biopsy left x 2 sites (6:00 axis and 2:00 axis), 04/28/2023. TECHNIQUE NEEDLE LOC: Proper informed consent is obtained from the patient after discussion of the procedure, potential risks and complications, and alternatives including declining the procedure today. Patient was given an opportunity for questions. The patient appeared to understand. The patient consented to the procedure and signed the consent form. GUIDANCE: Digital mammography. APPROACH: Medial Lateral. TARGET: 7:00 axis open coil biopsy clip. ANESTHESIA: carbonated lidocaine 1%: 3 mL. LOCALIZATION SYSTEM: [employer] LOCallizer Wire-Free Guidance System with 12g needle applicator. RADIOFREQUENCY TAG: ID # [id number] DERMATOTOMY: Single 1 mm skin-mario dermatotomy performed. RF Tag ID confirmed with LOCalizer Guidance System prior to placement. The skin is prepped and local anesthesia administered. The needle is positioned and RFID tag deployed. Final images demonstrate the LOCalizer RF tag to reside immediately posterior to the 7:00 biopsy clip, in good position. The patient tolerated the procedure well and had no immediate complications. Dressing placed and home instructions reviewed. MM/MM RF Tag device LT IMPRESSION: -Status post left breast RFID localization of 7:00 axis open coil biopsy clip. Good positioning of our RFID chip. -Final CC and MLO images labeled appropriately for OR reference. Electronically signed by: All Avila MD 11/23/2023 09:11 AM EDT
[2023-11-23] MEDS: Lidocaine HCl 1 % 20 ML VIAL 3 ML SUBCUT (08:48)
[2023-11-23] MEDS: Sodium Bicarbonate 8.4% 50 MEQ/50 ML VIAL SUBCUT (08:49)
== END 2023-11-23 07:49 | disposition home or self-care (01) ==
LOC: HO.MAMMO 07:48
PROVIDERS: PCP Student in an Organized Health Care Education/Training Program; Visit Provider Surgery
DX: R92.8 Other abnormal and inconclusive findings on diagnostic imaging of breast (principal); C50.912 Malignant neoplasm of unspecified site of left female breast
CPT/HCPCS: 19281; C1819

== ENCOUNTER → 2023-11-23 08:00 | Outpatient (BNV) | payer OTHER, SELFPAY | PROVIDERS: PCP Student in an Organized Health Care Education/Training Program; Visit Provider Radiology Diagnostic Radiology | DX: C50.912 Malignant neoplasm of unspecified site of left female breast (principal) | CPT/HCPCS: 19281; 77061; 77065 ==

== ENCOUNTER 2023-12-26 06:38 | Day surgery (SDC) | payer OTHER, SELFPAY ==
[2023-12-15 09:56] VITALS: BMI 29.3
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
[2023-12-26] VITALS (8 sets, daily range): BP systolic 108–126; BP diastolic 75–88; PULSE 88–108; RESP 16–17; TEMP 36.2–36.5; O2SAT 94–98; BMI 31.3
--- NOTE | ~2023-12-26 | MM_ITS ---
EXAMINATION: MM SPECIMEN X-RAY BREAST, LEFT BREAST CLINICAL INDICATION: Multicentric left IDC status post neoadjuvant chemotherapy. COMPARISON: MRI breast 10/10/2023, 05/09/2023. Left mammography 04/28/2023, and bilateral mammography 04/25/2023. Left ultrasound 04/16/2023, ultrasound-guided biopsy left x 2 sites (6:00 axis and 2:00 axis) Left ultrasound 04/28/2023. TECHNIQUE: Single radiograph of the excised breast tissue is performed using digital mammography. FINDINGS: The specimen shows the open coil biopsy clip, RFID tag, and numerous calcifications contained within the specimen. Results were called to Dr. Jan Donald in the operating room at the time of imaging. Electronically signed by: All Avila MD 12/26/2023 12:32 PM EDT
--- NOTE | ~2023-12-26 | NM_ITS ---
EXAMINATION: NM LYMPHOSCINTIGRAPHY CLINICAL INFORMATION: Multicentric left IDC status post neoadjuvant chemotherapy. COMPARISON: MRI breast 10/10/2023, 05/09/2023. Left mammography 04/28/2023, and bilateral mammography 04/25/2023. Left ultrasound 04/16/2023, ultrasound-guided biopsy left x 2 sites (6:00 axis and 2:00 axis) Left ultrasound 04/28/2023. TECHNIQUE: Right breast lymphoscintigraphy injection was performed . Approximately 0.5 mCi of technetium 99m lymphoseek and 0.8 mL of saline was divided into 4 aliquots of approximately 0.125 mCi, and injected in 4 quadrants around the right breast areola intradermally at 12:00, 3:00, 6:00, and 9:00. Immediate images and delayed images were obtained in AP, oblique and lateral views 5 minutes later. FINDINGS: There is isotope activity in four-quadrant around right breast areola following injection. There are at least 3 areas of isotope activity along the right low to mid axilla suggestive of multiple lymph nodes. NM/NM sentinel node w imaging IMPRESSION: At least 3 small lymph nodes seen in low to mid axilla on right breast lymphoscintigraphy. Thank you for the courtesy of your referral. Electronically signed by: All Avila MD 12/26/2023 10:42 AM EDT
[2023-12-26 07:05] LABS: UPreg QC Valid YES; Urine Pregnancy NEGATIVE (NEGATIVE)
[2023-12-26] MEDS: Lidocaine HCl 4 % Topical 50 ML SOLUTION 1 APPL TOPICAL (07:20)
[2023-12-26] MEDS: Lactated Ringers 1,000 ML 100 ML IVCONT (10:07)
--- NOTE | 2023-12-26 10:11 | MHC.SHP ---
Pre-Procedural Eval Section A - 24 Hr Update-Section A only Date of Service: 12/26/23 The patient is an INPATIENT: No Changes since office visit: Yes Patient answered all questions; No Cold of Flu in the past 2 weeks, No New Medical Problems and No Changes in Medication The patient has been examined within 24 hours of the surgical procedure. The History & Physical has been completed within 30 days and I have reviewed it.: No Section B - Complete if H&P > 30 days Chief Complaint: Malignant neoplasm of unspecified site of left Details of Present Illness: No changes from prior examination Relevant Family History (Specify if Yes): Yes Relevant Social History: None Present Medications: see Short Stay Collaborative assessment Medical History: No relevant PMH History of Previous Operations: No relevant previous surgery Allergies: Allergies Allergy/AdvReac Type Severity Reaction Status Date / Time No Known Allergies Allergy Verified 12/26/23 06:49 Review of Systems Sugical H&P ROS: Negative: Constitution, Cardiovascular, Respiratory and Hem-Onc Exam Surgical H&P Exam: Normal: Heart, Normal: Lungs and Normal: Skin Plan Diagnosis/Plan: Unchanged I have reviewed the history and physical and performed a pertinent physical examination on my patient. No changes have occurred unless specified. Time Spent With Patient Time: Total time managing care of this patient today ____ minutes.
--- NOTE | 2023-12-26 12:25 | W.PM.OPN ---
Operative Note Operative Note Date of Service: 12/26/23 Narrative: Preoperative diagnosis: Invasive ductal carcinoma left breast lower inner quadrant Postoperative diagnosis: Same Procedure: Left breast lumpectomy with localizer, left deep axillary sentinel node biopsy Surgeon: Jan Donald MD Lead Presser: Myra Pleitez PA-C Anesthesia: General LMA Indications for procedure: 38-year-old female patient presenting with a previous history of a palpable mass in the left breast at the lower inner quadrant. Subsequent core biopsy revealed invasive ductal carcinoma. She subsequently underwent neoadjuvant chemotherapy. Subsequent MRI revealed marked decrease in the area of activity in the left breast. She presents now for a left breast lumpectomy with localizer and left axillary sentinel node biopsy. Operative findings: Left breast lumpectomy with marking clip and localizer clip within the specimen. Two slightly enlarged axillary lymph nodes were identified and found to be with radio activity. These were included in the specimen. No other palpable lymph nodes were appreciated. Specimen: Left breast lumpectomy, left superior wider excision, left inferior wider excision, sentinel node 1, sentinel node 2 Estimated blood loss: 20 mL Complications: None Procedure details: Patient was brought to the OR placed in a supine position. She previously underwent a lymphoscintigraphy prior to presenting to the operating room. After administering general anesthesia the left breast was prepped with ChloraPrep and draped in a sterile fashion. A surgical time-out was called the consent confirmed. Patient received preoperative antibiotics and Venodyne boots were in place. Using the localizer instrument the area of activity was identified in the 7 o'clock position, lower inner quadrant. A curvilinear incision was made below the nipple-areolar complex in a transverse fashion and carried out through subcutaneous tissue. Superior and inferior skin flaps were then created with the electrocautery. A large wedge of tissue from lateral to medial was then performed using the localizer as a guide. Hemostasis was assured using electrocautery. Breast tissue was quite dense in this location. The specimen was removed and a specimen x-ray performed in the OR. This confirmed the marking clip within the specimen. Also appeared to be microcalcifications within the lesion. This was sent to pathology for further examination. Pathology felt dense tissue extending to the margin therefore additional margins circumferentially were obtained. These were sent separately as the superior margin which included superior medial lateral and posterior margin followed by a 2nd wider excision on the inferior margin which included the medial, lateral, anterior and posterior margins. Hemostasis was assured using electrocautery. Wounds were irrigated with saline solution. The margins were marked in the breast specimen using small hemoclips. Attention was then directed to the axilla where using the gamma probe, area of activity was noted in the mid axilla. A curvilinear incision was made in this location and carried out through subcutaneous tissue up to the clavipectoral fascia. The clavipectoral fascia was then opened to reveal the deep axillary compartment. Using the gamma probe as a guide, area of activity was identified and grasped with an Allis clamp. This was then dissected free using electrocautery and blunt dissection. Two sentinel nodes were identified in the deep compartment located within the level 1. These were sent as sentinel node 1 and sentinel node 2.. No further palpable enlarged nodes were identified and no further radioactive nodes were identified. The wounds were irrigated in both incisions and suctioned dry. Wounds were checked for hemostasis. Deep breast tissue was then reapproximated using interrupted 3-0 Polysorb sutures. Superficial breast tissue was reapproximated using interrupted 3-0 Polysorb sutures. Skin was then closed using a running subcuticular 4-0 Polysorb suture. The axillary compartment was then closed by reapproximating the clavipectoral fascia. Superficial axillary tissue and dermis were then reapproximated using interrupted 3-0 Polysorb sutures. Skin was closed using a running subcuticular 4-0 Polysorb suture. Please note: Procedure performed with curative intent Breast [place] Node Biopsy Substrate(s) used for sentinel node biopsy in the non-neoadjuvant setting: Radiotracer Substrate(s) used for sentinel node biopsy in the neoadjuvant setting: N/A All colored nodes or non-colored nodes present at the end of a dye filled lymphatic channel were removed, if dye was used as the substrate for localization: N/A All significantly radioactive nodes were removed, if radionuclide was used as the substrate for localization: Yes All palpably suspicious nodes were removed, if present: Yes If clips were placed in pathology-involved nodes, those nodes were identified and removed: N/A General Surg. - Synoptic Notes Breast [place] Node Biopsy Substrate(s) used for sentinel node biopsy in the non-neoadjuvant setting: Radiotracer Substrate(s) used for sentinel node biopsy in the neoadjuvant setting: N/A All colored nodes or non-colored nodes present at the end of a dye filled lymphatic channel were removed, if dye was used as the substrate for localization: N/A All significantly radioactive nodes were removed, if radionuclide was used as the substrate for localization: Yes All palpably suspicious nodes were removed, if present: Yes If clips were placed in pathology-involved nodes, those nodes were identified and removed: N/A
[2023-12-26] MEDS: oxyCODONE HCl Immed Release 5 MG TABLET PO (13:20)
== END 2023-12-26 14:25 | disposition home or self-care (01) ==
PROVIDERS: Nurse Practitioner; PCP Student in an Organized Health Care Education/Training Program; Visit Provider Surgery
PROC: (CPT 19301; principal; 2023-12-26 11:20)
PROC: (CPT 19301; 2023-12-26 11:20)
DX: C50.312 Malignant neoplasm of lower-inner quadrant of left female breast (principal); C77.3 Secondary and unspecified malignant neoplasm of axilla and upper limb lymph nodes; Z17.0 Estrogen receptor positive status [ER+]; Z92.21 Personal history of antineoplastic chemotherapy; G62.9 Polyneuropathy, unspecified; I10 Essential (primary) hypertension; D64.9 Anemia, unspecified; E78.00 Pure hypercholesterolemia, unspecified; Z79.899 Other long term (current) drug therapy
CPT/HCPCS: 19301; 38525; 78195; 81025; 88307; 88329; 88342; A9520; C1889; J0690; J1100; J2250; J2405; J2704; J2795; J3010

== ENCOUNTER → 2023-12-26 06:38 | Outpatient (BNV) | payer OTHER, SELFPAY | PROVIDERS: PCP Student in an Organized Health Care Education/Training Program; Visit Provider Surgery | DX: C50.912 Malignant neoplasm of unspecified site of left female breast (principal) | CPT/HCPCS: 19301; 38525; 38900 ==

== ENCOUNTER → 2023-12-26 08:00 | Outpatient (BNV) | payer OTHER, SELFPAY | PROVIDERS: PCP Student in an Organized Health Care Education/Training Program; Visit Provider Radiology Diagnostic Radiology | DX: C50.912 Malignant neoplasm of unspecified site of left female breast (principal) | CPT/HCPCS: 78195 ==

== ENCOUNTER 2024-01-05 10:47 | Outpatient (AMB) | payer OTHER, SELFPAY ==
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
[2024-01-05 10:54] VITALS: BP 127/79; PULSE 121; BMI 29.3
== END 2024-01-05 12:03 | disposition home or self-care (01) ==
PROVIDERS: PCP Student in an Organized Health Care Education/Training Program; Visit Provider Surgery
DX: C50.912 Malignant neoplasm of unspecified site of left female breast (principal)
CPT/HCPCS: 99024

== ENCOUNTER → 2024-01-05 10:47 | Outpatient (BNVA) | payer OTHER, SELFPAY | PROVIDERS: PCP Student in an Organized Health Care Education/Training Program; Visit Provider Surgery ==

== ENCOUNTER 2024-01-17 07:35 | Inpatient (IN) | payer OTHER, SELFPAY ==
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
[2024-01-17] VITALS (10 sets, daily range): BP systolic 117–155; BP diastolic 75–94; PULSE 84–105; RESP 11–20; TEMP 36.1–36.7; O2SAT 91–99; BMI 29.3
[2024-01-17] MEDS: Lactated Ringers 1,000 ML 100 ML IVCONT (08:01)
--- NOTE | 2024-01-17 08:04 | MHC.SHP ---
Pre-Procedural Eval Section A - 24 Hr Update-Section A only Date of Service: 01/17/24 The patient is an INPATIENT: No Changes since office visit: Yes Patient answered all questions; No Cold of Flu in the past 2 weeks, No New Medical Problems and No Changes in Medication The patient has been examined within 24 hours of the surgical procedure. The History & Physical has been completed within 30 days and I have reviewed it.: Yes Section B - Complete if H&P > 30 days Chief Complaint: left invasive ductal ca Allergies: Allergies Allergy/AdvReac Type Severity Reaction Status Date / Time No Known Allergies Allergy Verified 01/10/24 13:30 Plan Diagnosis/Plan: Change I have reviewed the history and physical and performed a pertinent physical examination on my patient. Patient's case was discussed in breast cancer conference prior to the procedure. The necessity of a axillary dissection was reviewed with radiation oncology and medical oncology. The consensus at the conference was that the addition of an axillary dissection was not necessary for the care of the patient as she will require radiation therapy in either case. These findings were reviewed with the patient this morning and recommendation made for a simple mastectomy. After review of the procedure, risks, and alternatives, she consents to a simple mastectomy. Time Spent With Patient Time: Total time managing care of this patient today ____ minutes.
[2024-01-17] MEDS: Celecoxib 200 MG CAPSULE 400 MG PO (08:29)
[2024-01-17 08:55] LABS: HCG Quantitative < 2 mIU/mL
--- NOTE | 2024-01-17 09:44 | PHA.MEDREC ---
Pharmacy Consult ? Medication Reconciliation Pharmacy has completed the medication reconciliation. Reviewed med rec done by nursing
--- NOTE | 2024-01-17 10:54 | W.PM.OPN ---
Operative Note Operative Note Date of Service: 01/17/24 Narrative: Preoperative diagnosis: Invasive ductal carcinoma left breast Postoperative diagnosis: Same Procedure: Left breast simple mastectomy Surgeon: Jan Donald MD Transfill Technician: Myra Pleitez PA-C Anesthesia: General LMA, pectoralis block Indications for procedure: 38-year-old female patient presenting following left breast lumpectomy for invasive ductal carcinoma following neoadjuvant chemotherapy. Pathology revealed positive margins at multiple locations. Patient was given the option of a repeat lumpectomy verses mastectomy. After discussion of the procedure, risks and alternatives she decided to proceed with simple mastectomy. Operative findings: Biopsy site located in the lower inner quadrant and lower outer quadrant left breast. Prior left axillary sentinel node biopsy scar tissue encountered as well. Specimen: Left breast Estimated blood loss: 20 mL Complications: None Procedure details: Patient was brought to the OR and placed in a supine position. After administering general anesthesia the patient's left breast and axilla were prepped with ChloraPrep and draped in a sterile fashion. A surgical time-out was called the consent confirmed. Patient received preoperative antibiotics and Venodyne boots were in place. A pectoralis block had previously been placed by anesthesia. Local anesthesia was infiltrated along the margins of the incision. An elliptical incision to include the previous subareolar incision was created beginning medially at the sternal edge and progressing laterally to the lower portion of the axilla was then created. The incision was started in the upper flap using a 15 blade. Electrocautery was then used to create a skin flap over the breast tissue extending up to the lower portion of the clavicle. It was then dissected down to chest wall. Attention was then directed to the lower flap were again a skin flap was created using electrocautery over the breast tissue including the previous excision site down to the lower costal margin. Dissection was continued down to chest wall at that point as well. The breast tissue was then dissected off the chest wall beginning medial to lateral superior to inferior using electrocautery. Muscle fascia was included in the dissection. The dissection was continued laterally to the axilla but not including the axillary dissection. Scar tissue was encountered in the axilla from the prior sentinel node biopsies. The breast tissue was removed. This was marked with a long suture on the lateral/axillary margin and short suture in the superior margin. This was sent to pathology for further examination. Wounds were then checked for hemostasis. Hemostasis was assured using electrocautery and free ties of 3-0 Polysorb. A large Jagjit-Walker drain was then placed through a separate stab wound to bulb suctioned. This was secured to the skin using a 4-0 nylon suture. Dermis was then reapproximated using interrupted 3-0 Polysorb sutures. Skin was closed using a running subcuticular 4-0 Polysorb suture. Strips, 4 x 4 dressing gauze and paper tape were then applied. The patient tolerated the procedure well. Sponge, instrument, and needle counts reported as correct. The patient was transferred to PACU in stable condition.
[2024-01-17] MEDS: HYDROmorphone HCl 0.5 MG/0.5 ML SYRINGE IVPUSH ×3 (13:33→21:49)
[2024-01-17] MEDS: Dextrose 5 % and Lactated Ring 1,000 ML 100 ML IVCONT ×2 (13:45→22:46)
--- NOTE | 2024-01-17 14:09 | MHC.CM.PN ---
EMR REVIEWED, PT W/LEFT INVASIVE DUCTAL CA AND S/P LEFT BREAST MASECTOMY, PT SEE'S DR. KAUR FOR ONCOLOGY, CM MET W/PT WHO IS A&O, ALSO AT BEDSIDE, PT REPORTS SHE LIVES W/, IS FULLY INDEP W/ALL CARE, DENIES USE OF DME/HOME SERVICES, PT REPORTS SHE WOULD LIKE TO COMPLETE A HCP PRIOR TO DC, CM WILL MEET W/PT IN AM TO COMPLETE SHE HAS BEEN UNDER ANESTHESIA TODAY. DCP: [facility] W/[facility] FOR SN, FOR TRANSPORT PCP ON FILE VERIFIED.
[2024-01-17] MEDS: Acetaminophen 1,000 MG/100 ML PIGGYBACK 400 MG IV ×2 (17:12→22:29)
[2024-01-17] MEDS: Gabapentin 100 MG CAPSULE 200 MG PO (20:12)
[2024-01-18] MEDS: HYDROmorphone HCl 0.5 MG/0.5 ML SYRINGE IVPUSH (03:21)
[2024-01-18 03:42] VITALS: BP 119/79; PULSE 88; RESP 16; TEMP 36.2; O2SAT 94
[2024-01-18] MEDS: Acetaminophen 1,000 MG/100 ML PIGGYBACK 400 MG IV (04:16)
[2024-01-18 06:25] LABS: MANUAL DIFF FLAG NO
[2024-01-18 06:54] LABS: Anion Gap 11 (12-20); Blood Urea Nitrogen 8 mg/dL (9-16); Calcium 9.8 mg/dL (8.4-10.2); Carbon Dioxide 26 mmol/L (22-29); Chloride 105 mmol/L (96-108); Creatinine Clr Calc Pharmacy 99.2; Estimated Glomerular Filt Rate > 60; Glucose Random 155 mg/dL (60-115); Potassium 4.1 mmol/L (3.3-5.1); Sodium 138 mmol/L (135-145)
[2024-01-18 06:58] LABS: Basophils Percent Auto 0.2 % (0-2); Hematocrit 35.8 % (37.0-47.0); Hemoglobin 11.9 g/dl (12.0-16.0); Imm Gran Abs Auto 0.09 X10*3/uL (0.00-0.03); Imm Gran Pct Auto 0.9 % (0.0-0.4); Lymphocytes Absolute Auto 0.7 X10*3/uL (1.2-4.9); Lymphocytes Percent Auto 6.8 % (20-40); Mean Corpuscular HGB Conc 33.2 g/dl (31.0-35.0); Mean Corpuscular Hemoglobin 28.4 pg (27.0-33.0); Mean Corpuscular Volume 85.4 fL (80.0-98.0); Mean Platelet Volume 10.5 fL (9.4-12.3); Monocytes Absolute Auto 0.7 X10*3/uL (0.1-1.2); Monocytes Percent Auto 6.3 % (2-11); Neutrophils Percent Auto 85.8 % (45-73); Platelet Count 210 X10*3/uL (160-400); Red Blood Count 4.19 X10*6/uL (4.20-5.50); Red Cell Distribution Width 12.6 % (11.0-16.0); White Blood Count 10.5 X10*3/uL (4.8-10.8)
[2024-01-18 07:27] VITALS: BP 132/83; PULSE 88; RESP 17; TEMP 35.7; O2SAT 96
--- NOTE | 2024-01-18 07:41 | P.PNGS_ITS ---
Subjective Subjective Date of Service: 01/18/24 Interval history: Feels ok this morning, sore at mastectomy site. Tolerating solid diet. OOB and ambulating to bathroom without difficulty. Would like to go home today. Physical Exam 2 Vital Signs: Vital Signs: Last Vital Signs Temp 96.3 F L 01/18/24 07:27 Pulse 88 01/18/24 07:27 Resp 16 01/18/24 03:42 BP 132/83 01/18/24 07:27 Pulse Ox 96 01/18/24 07:27 O2 Del Method Room Air 01/18/24 07:27 O2 Flow Rate 2 01/17/24 11:30 BMI result Body Mass Index 29.3 Const: General: comfortable, no acute distress and alert O rientation/consciousness: patient oriented x3 Chest: Other: left mastectomy site dressing clean and intact, no fullness appreciated, small amt of sanguineous drainage in bulb Resp: Effort & Inspection: normal respiratory effort Skin: General skin exam: no rashes or lesions noted Neuro: General: patient oriented x3 and moves all extremities Objective Data Active Medications Famotidine (Famotidine 20 Mg Tablet) 40 mg PO BEDTIME PRN PRN Reason: Acid Reflux Gabapentin (Gabapentin 100 Mg Capsule) 200 mg PO BEDTIME [facility] Last Admin: 01/17/24 20:12 Dose: 200 mg Documented By: QI Hydromorphone HCl (Hydromorphone Hcl 0.5 Mg/0.5 Ml Syringe) 0.5 mg IVPUSH Q3H PRN; Protocol PRN Reason: Pain, Severe (Pain Scale 7-10) Last Admin: 01/18/24 03:21 Dose: 0.5 mg Documented By: QI Acetaminophen (Ofirmev) 1,000 mg in 100 mls @ 400 mls/hr IV Q6H [facility] Last Infusion: 01/18/24 04:32 Dose: Infused Documented By: QI Loratadine (Loratadine 10 Mg Tablet) 10 mg PO DAILY PRN PRN Reason: allergies Melatonin (Melatonin 3 Mg Tablet) 6 mg PO BEDTIME PRN PRN Reason: Insomnia Ondansetron HCl (Ondansetron Hcl 4 Mg/2 Ml Vial) 4 mg IVPUSH Q8H PRN PRN Reason: Nausea and Vomiting Senna (Sennosides 8.6 Mg Tablet) 17.2 mg PO BEDTIME PRN PRN Reason: constipation Sodium Chloride (0.9 % Sodium Chloride Flush 3 Ml Syringe) 3 ml IVFLUSH QSHIFT FIDE Last Admin: 01/18/24 07:25 Dose: Not Given Documented By: KEN Non-Admin Reason: IV Running Labs 01/18/24 05:50 01/18/24 05:50 Labs: Laboratory Results - last 24 hr 01/17/24 01/18/24 08:11 05:50 MCV 85.4 MCH 28.4 MCHC 33.2 RDW 12.6 Plt Count 210 MPV 10.5 Immature Gran % (Auto) 0.9 H Neut % (Auto) 85.8 H Lymph % (Auto) 6.8 L [place] % (Auto) 6.3 Eos % (Auto) 0.0 Baso % (Auto) 0.2 Lymph # (Auto) 0.7 L [place] # (Auto) 0.7 Eos # (Auto) 0.0 Baso # (Auto) 0.0 Abs Immat Gran (auto) 0.09 H Absolute Neuts (auto) 9.0 H Absolute Nucleated RBC 0.000 Nucleated RBC % (auto) 0.0 Anion Gap 11 L Estim Creat Clear Calc 99.2 Estimated GFR > 60 Random Glucose 155 H Calcium 9.8 Beta HCG, Quant < 2 Blood Type O Positive Antibody Screen NEGATIVE Procedures Date of Service Date of Service: 01/18/24 Progress Note: A&P Assessment and plan (1) S/P left mastectomy: Status: Acute (2) Invasive ductal carcinoma of left breast: Status: Acute Plan POD #1 s/p left simple mastectomy. Doing well post op. VSS. Mastectomy dressing clean and intact, moderate amt of sanguineous drainage overnight from . Patient interested in going home today. Transition to oral analgesics. If comfortable, plan for dc to home later today with VNA services for drain care. Patient comfortable with plan. Time Spent With Patient Time: Total time managing care of this patient today ____ minutes. Quality Stroke Does the patient have a stroke diagnosis?: No VTE Prior VTE?: No VTE Risk Level:: Surgical - moderate VTE Device Contraindication: N/A - Device Ordered VTE Drug Contraindication: Treatment Not Indicated
--- NOTE | 2024-01-18 08:29 | HO.POSTANES ---
Post Anesthesia Evaluation Post Anesthesia Evaluation Date of Service: 01/18/24 Vital Signs: Vital Signs Temp Pulse Resp BP Pulse Ox O2 Del Method 01/18/24 07:27 96.3 F L 88 17 132/83 96 Room Air 01/18/24 03:42 97.2 F 88 16 119/79 94 Room Air 01/17/24 23:59 97.5 F 95 16 122/75 93 Room Air Anesthesia: Nerve Block and General Mental Status: Awake Pain Control: Satisfactory Nausea/Vomiting: None Hydration: Adequate Anesthesia-Related Issues: No Anes. Related Issues
[2024-01-18] MEDS: oxyCODONE HCl Immed Release 5 MG TABLET PO (09:46)
--- NOTE | 2024-01-18 11:04 | P.DS_ITS ---
DS: Providers Provider Date of Service: 01/18/24 Date of admission: 01/17/24 07:35 Primary care physician: Naa Roberts MD Attending physician on admission: Jan Donald Attending physician on discharge: Jan Donald DS: Diagnosis Discharge Diagnosis (1) S/P left mastectomy: Status: Acute (2) Invasive ductal carcinoma of left breast: Status: Acute DS: Summary Hospital Course Hospital Course: HPI AT ADMISSION: 38-year-old female patient presenting with a palpable mass noted on self examination at approximately the 09:00 o'clock position of the left breast just medial to the nipple-areolar complex. This was 1st identified in December 2022 and had not changed significantly since then. She denies a family history of breast problems or breast cancer. She is . Mammogram and ultrasound performed at the [facility] revealed several areas of density and microcalcifications in the left breast felt to be highly suggestive of breast cancer (BI-RADS 5). She underwent ultrasound-guided core biopsies of the 2 most suspicious areas in the left breast. Pathology of the lesion located in the 02:00 o'clock location revealed PASH, however the lesion in the 6 o'clock position revealed invasive ductal carcinoma, ER/MT positive, HER2 Abimbola negative, Ki-67 25% (high). MRI revealed multiple suspicious nodules in multiple quadrants of the left breast felt to be very suspicious for multicentric disease. No enlarged lymph nodes no lesions on the right breast were identified. She was evaluated by Dr. Fournier and decision made to proceed with neoadjuvant chemotherapy. She received AC x4 cycles followed by weekly Taxol times 12 cycles (her last cycle will be next week). Repeat MRI performed post treatment on 10/10/2023 revealed significant interval reduction in the 2 dominant areas of enhancement. She underwent left breast lumpectomy with localizer and left axillary sentinel node biopsy. Pathology confirmed invasive ductal carcinoma, ER/MT positive, HER2 Abimbola negative with positive margins in the superior and deep margins. DCIS was also positive at the deep margins. Two of 3 sentinel nodes were positive for metastatic disease. Pathology results were reviewed in detail with the patient today and treatment options reviewed including wider excision to achieve negative margins verses mastectomy. She decided to proceed with mastectomy. She was presented at the breast cancer conference and decision was made that only left simple mastectomy was needed as she would receive radiation to the axilla. She now presents for planned procedure. HOSPITAL COURSE: On 01/17/24, a left simple mastectomy was performed by Dr. Donald without complication. BROOKE drain was placed intraoperatively. The patient tolerated the procedure well and was admitted following for observation. She had an uncomplicated recovery course. On POD #1, she felt well with mild incisional soreness. She was OOB and ambulating without difficulty. She was tolerating a solid diet. She was using her left arm without limitations. She was reassessed later in the day and was comfortable on PO analgesics. She was hemodynamically stable. Her dressing was changed and the mastectomy incision was clean and flaps viable with thin sanguineous BROOKE drainage. She felt ready for discharge to home. She was discharged to home on 01/18/24 in stable condition with VNA services for BROOKE drain care. She is to follow up in the office in 1 week. Status at Discharge Functional status at discharge: independent ambulation Overall status at discharge: patient is progressing back to baseline Time Attestation Discharge Coordination Time (in mins): 40 Quality: Safe Use of Opioids Does Pt have an Active Cancer Diagnosis on the Problem List?: Yes Opioid Measure Date for [facility] Report: 12/19/23 Opioid Measure Time for [facility] Report: 12:59 Quality: Stroke Does the patient have a stroke diagnosis?: No Physical Exam Vital Signs: Vital Signs: Last Vital Signs Temp 96.3 F L 01/18/24 07:27 Pulse 88 01/18/24 07:27 Resp 17 01/18/24 07:27 BP 132/83 01/18/24 07:27 Pulse Ox 96 01/18/24 07:27 O2 Del Method Room Air 01/18/24 07:27 O2 Flow Rate 2 01/17/24 11:30 BMI result Body Mass Index 29.3 Const: General: comfortable, no acute distress and alert Orientation/consciousness: patient oriented x3 Chest: Other: left mastectomy incision clean appearing, flaps viable, no fullness appreciated, BROOKE drain with thin sanguineous drainage Resp: Effort & Inspection: normal respiratory effort Skin: General skin exam: no rashes or lesions noted Neuro: General: patient oriented x3 and moves all extremities DS: Data Data Completed and Pending Pending studies at discharge: Pending at discharge 01/17/24 10:29 Surgical [PTH] Routine Labs on day of discharge: Laboratory Results - last 24 hr 01/18/24 05:50 WBC 10.5 RBC 4.19 L Hgb 11.9 L Hct 35.8 L MCV 85.4 MCH 28.4 MCHC 33.2 RDW 12.6 Plt Count 210 MPV 10.5 Immature Gran % (Auto) 0.9 H Neut % (Auto) 85.8 H Lymph % (Auto) 6.8 L Dupage % (Auto) 6.3 Eos % (Auto) 0.0 Baso % (Auto) 0.2 Lymph # (Auto) 0.7 L Dupage # (Auto) 0.7 Eos # (Auto) 0.0 Baso # (Auto) 0.0 Abs Immat Gran (auto) 0.09 H Absolute Neuts (auto) 9.0 H Absolute Nucleated RBC 0.000 Nucleated RBC % (auto) 0.0 Sodium 138 Potassium 4.1 Chloride 105 Carbon Dioxide 26 Anion Gap 11 L BUN 8 L Creatinine 0.71 Estim Creat Clear Calc 99.2 Estimated GFR > 60 Random Glucose 155 H Calcium 9.8 Discharge Plan Discharge Anticipated Discharge Date/Time: 01/18/24 15:29 Patient Disposition: Home Health Service Discharge Diagnosis: s/p left simple mastectomy Referrals: [facility] [Outside] - 1 Day (SHELTER) Jan Donald MD [Physician] - 1 Week Naa Leigh MD [Primary Care Provider] - 1 Week Discharge Medications: New oxycodone 5 mg tablet 5 mg PO Q4H PRN (Reason: pain (scale score 7-10)) Qty: 26 0RF Rx Instructions: Partial Fill upon patient request. Continued Boost Breeze Nutritional 0.04-1.05 gram-kcal/mL liquid 1 ea PO ONCE Qty: 237 0RF Rx Instructions: Drink up to 4 hours prior to surgery sennosides [Natural Senna Laxative] 8.6 mg tablet 17.2 mg PO BEDTIME PRN (Reason: constipation) famotidine 40 mg tablet 40 mg PO BEDTIME PRN (Reason: Acid Reflux) ondansetron 8 mg tablet,disintegrating 8 mg PO Q8H calcium polycarbophil [Fiber-Lax] 625 mg tablet 625 mg PO DAILY loratadine 10 mg tablet 10 mg PO DAILY PRN (Reason: allergies) gabapentin 100 mg capsule 200 mg PO BEDTIME Discontinued oxycodone 5 mg tablet 5 mg PO Q6H PRN (Reason: pain (scale score 7-10)) Qty: 15 0RF Rx Instructions: Partial Fill upon patient request. Discharge Orders: Discharge Order (Routine); Ordered 01/18/24 Ordered By: Myra Pleitez Diet: Advance to usual diet Activity on Discharge: No heavy lifting Stand Alone Forms: Patient Portal Discharge page Print Language: Paraguayan Activity Restrictions/Additional Instructions: If the incision area is tender, you may apply an ice pack for short intervals (No more than 20 minutes on, followed by at least 20 minutes off). Do not apply heat. Do not use creams, lotions, or topical antibiotics. These can cause infection or allergic reaction. Ok to shower. Change dressing after. No tub bath. You have steri strips on your incision and these will fall off in ~1 week. NO HEAVY LIFTING (>10lbs) with your left arm. BROOKE drain care- empty drain BID and as needed. Record output. Bring record to follow up appointment. Follow up in office. ([phone]) Call Your Doctor If: ? ? -Your temperature exceeds 101.5? F? ? ? -You experience excessive pain or swelling ? ? -You have an unexpected reaction to medication ? ? -You have excessive bleeding ? ? -You experience continued vomiting/nausea ? ? -Your incision begins to separate ?? ? -Your incision shows signs of infection such as increased redness, swelling, excessive pain, drainage (light blood or clear fluid is normal) or heat Care Plan Goals: Return to baseline health and resume normal activities following recovery period. Health Concerns: invasive ductal CA left breast Plan of Treatment: s/p left simple mastectomy VNA services for BROOKE drain care f/u in office in 1 week Assessment: Doing well post op. Discharge Date/Time: 01/18/24 11:48
--- NOTE | 2024-01-18 11:46 | MHC.CM.PN ---
PT MEDICALLY CLEARED FOR DC HOME W/NEW COMFORT PLUS VNA FOR SN, CM MET W/PT WHO REPORTS SHE NO LONGER WANTS TO COMPLETE A HCP, PT AT BEDSIDE AND WILL TRANSPORT.
--- NOTE | 2024-01-18 12:02 | P.F2F_ITS ---
Service Date Service Date: 01/18/24 Encounter Date of encounter: 01/18/24 Reasons for Services Signs and symptoms assessed: incisional pain, incision appearance, BROOKE drain output Reason for jail: wound care and postoperative assessment and/or care Homebound: Leaving the home is medically contraindicated at this time without the asist of a device and/or another person due th the listed conditions above and below. Reason homebound: weakness related to hospital stay and unable to drive Homebound supporting statement: Ms. Henao is s/p left simple mastectomy. She has a BROOKE drain in place and will need nursing services for dressing change and drain care. Certification: Based on the above findings, I certify that this patient is confined to the home and needs intermittent jail care, physical therapy and/or speech therapy, or continues to need occupational therapy. The patient is under my care, and I have initiated the establishment of the plan of care. The patient will be followed by a physician who will periodically review the plan of care. Time Spent With Patient Time: Total time managing care of this patient today ____ minutes.
== END 2024-01-18 11:48 | disposition home health service (06) | DRG 362 ==
LOC: HO.SSSA 07:37 → HO.S3 11:14
PROVIDERS: Anesthesiology; Admitting Provider Surgery; PCP Student in an Organized Health Care Education/Training Program; Visit Provider Surgery
PROC: 0HTU0ZZ Resection of Left Breast, Open Approach (ICD-10-PCS; CPT 19307; principal; 2024-01-17 07:30)
DX: C50.912 Malignant neoplasm of unspecified site of left female breast (principal); G89.18 Other acute postprocedural pain; Z79.899 Other long term (current) drug therapy
CPT/HCPCS: 19303; 36415; 80048; 84702; 85025; 86850; 86900; 86901; 88307; J0131; J0690; J1100; J1171; J2003; J2250; J2405; J2704; J2795

== ENCOUNTER → 2024-01-17 07:35 | Outpatient (BNV) | payer OTHER, SELFPAY | PROVIDERS: Admitting Provider Surgery; PCP Student in an Organized Health Care Education/Training Program; Visit Provider Surgery | DX: C50.312 Malignant neoplasm of lower-inner quadrant of left female breast (principal) | CPT/HCPCS: 19303; 99024; G0180 ==

== ENCOUNTER 2024-01-26 11:11 | Outpatient (AMB) | payer OTHER, SELFPAY ==
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
[2024-01-26 11:31] VITALS: PULSE 86; BMI 29.0
== END 2024-01-26 11:46 | disposition home or self-care (01) ==
LOC: HO.HGS 11:12
PROVIDERS: PCP Student in an Organized Health Care Education/Training Program; Visit Provider Surgery
DX: C50.912 Malignant neoplasm of unspecified site of left female breast (principal); Z90.12 Acquired absence of left breast and nipple
CPT/HCPCS: 99024

== ENCOUNTER → 2024-01-26 11:11 | Outpatient (BNVA) | payer OTHER, SELFPAY | PROVIDERS: PCP Student in an Organized Health Care Education/Training Program; Visit Provider Surgery ==

== ENCOUNTER 2024-01-31 11:10 | Outpatient (REF) | payer OTHER, SELFPAY | END 2024-01-31 11:11 | disposition home or self-care (01) | LOC: HO.HMGCX 11:10 | PROVIDERS: PCP Student in an Organized Health Care Education/Training Program; Visit Provider Student in an Organized Health Care Education/Training Program | DX: Q18.9 Congenital malformation of face and neck, unspecified (principal) | CPT/HCPCS: 76536 ==

== ENCOUNTER 2024-02-03 13:37 | Outpatient (REF) | payer OTHER, SELFPAY ==
--- NOTE | ~2024-02-03 | CT_ITS ---
EXAMINATION: CT chest w IV con (accession [id number]), CT abdomen pelvis w IV con (accession [id number]) CLINICAL INFORMATION: Breast cancer, restaging COMPARISON: CTA Abd/Pelvis 09/26/23 TECHNIQUE: Multidetector volumetric imaging was performed through the chest, abdomen and pelvis following the administration of 85 mL of Omnipaque 350 intravenous contrast. Sagittal and coronal reformatted images were obtained on the technologist's workstation. Axial MIP volume rendering provided. This CT examination was performed using dose optimization techniques as appropriate, variously including the following: * Automated exposure control * Adjustment of mA and/or kV according to patient size (this includes techniques or standardized protocols for targeted exams where dose is matched to indication/reason for exam; i.e. extremities or head) Use of iterative reconstruction technique DLP: 597 mGy-cm FINDINGS: CHEST: LUNGS: The central airways are patent. The lungs are clear with no evidence of consolidation. No pleural effusion or pneumothorax. There are no pulmonary parenchymal nodules. MEDIASTINUM: The heart is of normal size. There is no pericardial effusion. Central vascular structures are unremarkable. Normal thyroid. No hilar or mediastinal lymphadenopathy. CHEST WALL: No lymphadenopathy. No chest wall mass. Right chest port catheter terminates at the cavoatrial junction. Status post left mastectomy with simple attenuating 12.4 x 2.3 x 6.9 cm fluid collection coursing within the subcutaneous tissue inferior to the pectoralis muscle along the anterolateral chest wall. ABDOMEN/PELVIS: LIVER, GALLBLADDER, BILIARY TREE: The liver is normal in size, shape, and attenuation. No focal hepatic lesion or biliary ductal dilatation is present. The gallbladder is unremarkable with no evidence of radiopaque gallstones, gallbladder wall thickening, or obvious pericholecystic inflammatory changes. PANCREAS: Normal; no mass or surrounding fluid. SPLEEN: Normal size. No focal lesion. ADRENAL GLANDS: There is a 1.2 cm right adrenal gland nodule measures 38 Hounsfield units, stable. Normal left adrenal gland. KIDNEYS AND URETERS: The kidneys are normal in size, shape, and attenuation. No hydronephrosis, hydroureter, or calculi seen. No perinephric stranding. BLADDER: No focal mass or wall thickening seen. No bladder calculi. PELVIC VISCERA: Overall CT appearance of the uterus. There is a 2.8 x 1.3 cm right adnexal lesion measuring 58 Hounsfield units, compared to 2.5 x 1.7 cm and 50 Hounsfield units previously, not significantly changed. GASTROINTESTINAL TRACT: The small and large bowel are nondilated. Mild scattered colonic diverticulosis, predominantly involving the right colon and increased in number and size as compared to 09/26/2023. No evidence for acute diverticulitis. The previously seen soft tissue density medial to the cecum is not definitively redemonstrated, in this region and there is persistent stranding Normal appendix (sagittal image 67). PERITONEAL SPACE: No significant free air or free fluid identified. ABDOMINAL WALL: No significant hernia is appreciated. LYMPHOVASCULAR STRUCTURES: Lymph nodes: Normal. Vascular: The aorta is normal in caliber. OSSEOUS STRUCTURES: No acute or suspicious osseous abnormality. Bilateral L5 pars defects and degenerative disc disease L5-S1. CT/CT abdomen pelvis w IV con IMPRESSION: 1. There is persistent stranding in the region of a previously seen soft tissue density medial to the cecum. If not already performed, further assessment with direct visualization would be helpful. 2. Mild scattered colonic diverticulosis, predominantly involving the right colon and increased in number and size as compared to 09/26/2023. No evidence for acute diverticulitis. 3. Status post left mastectomy with simple attenuating 12.4 cm fluid collection coursing within the subcutaneous tissue inferior to the pectoralis muscle along the anterolateral chest wall. 4. Stable 1.2 cm right adrenal gland nodule. If clinically warranted, consider adrenal protocol CT for further assessment. Electronically signed by: Lorrie Weber DO 02/03/2024 06:02 PM DYLAN
--- NOTE | ~2024-02-03 | CT_ITS ---
EXAMINATION: CT chest w IV con (accession [id number]), CT abdomen pelvis w IV con (accession [id number]) CLINICAL INFORMATION: Breast cancer, restaging COMPARISON: CTA Abd/Pelvis 09/26/23 TECHNIQUE: Multidetector volumetric imaging was performed through the chest, abdomen and pelvis following the administration of 85 mL of Omnipaque 350 intravenous contrast. Sagittal and coronal reformatted images were obtained on the technologist's workstation. Axial MIP volume rendering provided. This CT examination was performed using dose optimization techniques as appropriate, variously including the following: * Automated exposure control * Adjustment of mA and/or kV according to patient size (this includes techniques or standardized protocols for targeted exams where dose is matched to indication/reason for exam; i.e. extremities or head) Use of iterative reconstruction technique DLP: 597 mGy-cm FINDINGS: CHEST: LUNGS: The central airways are patent. The lungs are clear with no evidence of consolidation. No pleural effusion or pneumothorax. There are no pulmonary parenchymal nodules. MEDIASTINUM: The heart is of normal size. There is no pericardial effusion. Central vascular structures are unremarkable. Normal thyroid. No hilar or mediastinal lymphadenopathy. CHEST WALL: No lymphadenopathy. No chest wall mass. Right chest port catheter terminates at the cavoatrial junction. Status post left mastectomy with simple attenuating 12.4 x 2.3 x 6.9 cm fluid collection coursing within the subcutaneous tissue inferior to the pectoralis muscle along the anterolateral chest wall. ABDOMEN/PELVIS: LIVER, GALLBLADDER, BILIARY TREE: The liver is normal in size, shape, and attenuation. No focal hepatic lesion or biliary ductal dilatation is present. The gallbladder is unremarkable with no evidence of radiopaque gallstones, gallbladder wall thickening, or obvious pericholecystic inflammatory changes. PANCREAS: Normal; no mass or surrounding fluid. SPLEEN: Normal size. No focal lesion. ADRENAL GLANDS: There is a 1.2 cm right adrenal gland nodule measures 38 Hounsfield units, stable. Normal left adrenal gland. KIDNEYS AND URETERS: The kidneys are normal in size, shape, and attenuation. No hydronephrosis, hydroureter, or calculi seen. No perinephric stranding. BLADDER: No focal mass or wall thickening seen. No bladder calculi. PELVIC VISCERA: Overall CT appearance of the uterus. There is a 2.8 x 1.3 cm right adnexal lesion measuring 58 Hounsfield units, compared to 2.5 x 1.7 cm and 50 Hounsfield units previously, not significantly changed. GASTROINTESTINAL TRACT: The small and large bowel are nondilated. Mild scattered colonic diverticulosis, predominantly involving the right colon and increased in number and size as compared to 09/26/2023. No evidence for acute diverticulitis. The previously seen soft tissue density medial to the cecum is not definitively redemonstrated, in this region and there is persistent stranding Normal appendix (sagittal image 67). PERITONEAL SPACE: No significant free air or free fluid identified. ABDOMINAL WALL: No significant hernia is appreciated. LYMPHOVASCULAR STRUCTURES: Lymph nodes: Normal. Vascular: The aorta is normal in caliber. OSSEOUS STRUCTURES: No acute or suspicious osseous abnormality. Bilateral L5 pars defects and degenerative disc disease L5-S1. CT/CT chest w IV con IMPRESSION: 1. There is persistent stranding in the region of a previously seen soft tissue density medial to the cecum. If not already performed, further assessment with direct visualization would be helpful. 2. Mild scattered colonic diverticulosis, predominantly involving the right colon and increased in number and size as compared to 09/26/2023. No evidence for acute diverticulitis. 3. Status post left mastectomy with simple attenuating 12.4 cm fluid collection coursing within the subcutaneous tissue inferior to the pectoralis muscle along the anterolateral chest wall. 4. Stable 1.2 cm right adrenal gland nodule. If clinically warranted, consider adrenal protocol CT for further assessment. Electronically signed by: Lorrie Weber DO 02/03/2024 06:02 PM [facility]
[2024-02-03] MEDS: iohexoL 350 MG/ML 75 ML INFUS..BTL 85 ML IV (16:13)
[2024-02-03] MEDS: Barium Sulfate Oral (Vanilla) 450 ML ORAL.SUSP 900 ML PO (16:13)
== END 2024-02-03 13:38 | disposition home or self-care (01) ==
LOC: HO.CT 13:37
PROVIDERS: PCP Student in an Organized Health Care Education/Training Program; Visit Provider Internal Medicine Medical Oncology
DX: C50.912 Malignant neoplasm of unspecified site of left female breast (principal)
CPT/HCPCS: 71260; 74177; Q9967

== ENCOUNTER 2024-02-20 09:37 | Outpatient (AMB) | payer OTHER, SELFPAY ==
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
[2024-02-20 09:46] VITALS: BP 136/86; PULSE 108; O2SAT 98; BMI 27.9
== END 2024-02-20 10:27 | disposition home or self-care (01) ==
PROVIDERS: PCP Student in an Organized Health Care Education/Training Program; Visit Provider Nurse Practitioner Family
DX: R74.01 Elevation of levels of liver transaminase levels (principal); D50.8 Other iron deficiency anemias; K52.9 Noninfective gastroenteritis and colitis, unspecified; K59.01 Slow transit constipation
CPT/HCPCS: 99213

== ENCOUNTER 2024-03-13 09:55 | Outpatient (AMB) | payer MEDICAID, SELFPAY ==
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
[2024-03-13 10:01] VITALS: RESP 16; BMI 27.9
== END 2024-03-13 10:17 | disposition home or self-care (01) ==
PROVIDERS: PCP Student in an Organized Health Care Education/Training Program; Visit Provider Surgery
DX: C50.912 Malignant neoplasm of unspecified site of left female breast (principal); Z90.12 Acquired absence of left breast and nipple
CPT/HCPCS: 99024

== ENCOUNTER → 2024-03-13 09:55 | Outpatient (BNVA) | payer MEDICAID, SELFPAY | PROVIDERS: PCP Student in an Organized Health Care Education/Training Program; Visit Provider Surgery ==

== ENCOUNTER 2024-05-22 11:46 | Outpatient (REF) | payer MEDICAID, SELFPAY ==
--- NOTE | ~2024-05-22 | MM_ITS ---
EXAMINATION: MM SCREENING DIGITAL BREAST TOMOSYNTHESIS, RIGHT CLINICAL INFORMATION: Screening. Asymptomatic. History of left breast cancer status post mastectomy 2023. COMPARISON: Mammography: This study is compared with prior exams available TECHNIQUE: Digital breast tomosynthesis is performed in both the craniocaudal and mediolateral oblique views along with computer-aided detection (CAD). Synthesized 2D images are generated from the tomosynthesis. FINDINGS: The breasts are heterogeneously dense, which may obscure small masses (ACR BI-RADS breast composition Category c). There are no significant masses, abnormal calcifications, or other abnormalities. MM/MM tomosynthesis screening RT IMPRESSION: No mammographic evidence of malignancy. ASSESSMENT: BI-RADS BI-RADS 1 - Negative RECOMMENDATION: Routine annual mammography screening. 1 year F/U This examination should not preclude the clinical evaluation of a suspicious palpable abnormality. This patient's information was entered into a reminder system with a target due date for their next mammogram. Electronically signed by: Sabrina Neville DO 05/22/2024 12:29 PM DYLAN
--- OUTSIDE RECORDS SUMMARY | 2024-05-22 14:24 | XMS_ITS | Clinical Summary ---
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 FADM Date: 05/22/24 Loc: NADYA Attending Dr: Jan Donald MD Ordering Physician: Jan Donaldesults: 1Nega tive Date of Service: 05/22/24Follow Up: 1 Year From Orig inal Mammogram Procedure(s): MM tomosynthesis screening RT Accession Number(s): [id number] cc: Jan Donald MD; Naa Leigh MD EXAMINATION: MM SCREENING DIGITAL BREAST TOMOSYNTHESIS, RIGHT CLINICAL INFORMATION: Screening. Asymptomatic. History of left breast cancer status post mastectomy 2023. COMPARISON: Mammography: This study is compared with prior exams available TECHNIQUE: Digital breast tomosynthesis is performed in both the craniocaudal and mediolateral oblique views along with computer-aided detection (CAD). Synthesized 2D images are generated from the tomosynthesis. FINDINGS: The breasts are heterogeneously dense, which may obscure small masses (ACR BI-RADS breast composition Category c). There are no significant masses, abnormal calcifications, or other abnormalities. MM/MM tomosynthesis screening RT IMPRESSION: No mammographic evidence of malignancy. ASSESSMENT: BI-RADS BI-RADS 1 - Negative RECOMMENDATION: Routine annual mammography screening. 1 year F/U This examination should not preclude the clinical evaluation of a suspicious palpable abnormality. This patient's information was entered into a reminder system with a target due date for their next mammogram. Electronically signed by: Sabrina Neville DO 05/22/2024 12:29 PM [facility] Dictated By: Sabrina Neville DO Signed By: <Electronically signed by Sabrina Neville DO in OV> 05/22/24 1229 DD/ 1150 TD/TT: 05/22/24 1220 Gold Beater: [facility] External Provider IMG BI PROCEDURES Final Result * BI Mammogram Diagnostic Tomosynthesis Left (11/02/2023 11:30 AM EDT) Anatomical Region Laterality Modality Breast Left Mammography 11/02/2023 11:3 0 AM EDT Narrative 11/02/2023 12:18 PM EDT ? [facility] ? [address] ?[place] [address] ? Mammography Report ? Signed ? Patient: Juliano,Cathia ?MR#: [id number] ?? 177 ? : 1985 ?Acct:[id number] ? Age/Sex: 38 / F ?ADM Date: 11/01/24 ? Loc: HO.MAMMO ? Attending Dr: Simon Fournier MD ? Ordering Physician: Simon Fournier MD ?Results: 6Known ?? Biopsy Proven Malignancy ? Date of Service: 11/02/23 ?Follow Up: 1 Year From Orig ?? inal Mammogram ? Procedure(s): MM tomosynthesis diagnostic LT ?? Accession Number(s): [id number] ? cc: Simon Fournier MD; Naa Leigh MD ? EXAMINATION: ?? MM DIAGNOSTIC DIGITAL BREAST TOMOSYNTHESIS, LEFT ?? US BREAST LIMITED, LEFT ? MAMMOGRAPHY: ?? CLINICAL INFORMATION: ? Follow-up multicentric sites of IDC left breast status post neoadjuvant ?? chemotherapy. ? COMPARISON: ?? MRI breast 10/10/2023, which is far more sensitive and specific than ?? mammography or ultrasound. MRI breast 05/09/2023. ?? Left mammography 04/28/2023, and bilateral mammography 04/25/2023. ?? Left ultrasound 04/16/2023, and ultrasound-guided biopsy left x 2 sites ?? (6:00 axis and 2:00 axis), 04/28/2023. ? TECHNIQUE: ?? Digital breast tomosynthesis is performed in the following views: ?? Full-field 3-D digital left CC, ML views, and 2-D spot magnification ?? left CC and ML views. This was followed by targeted left breast ?? ultrasound focused to the 6 and 7:00 axes left breast ? FINDINGS: ?? The breasts are heterogeneously dense, which may obscure small masses ?? (ACR BI-RADS breast composition Category c). ? Please refer to the recent MRI which is far more sensitive and ?? specific. ? The the left 2:00 and 8:00 lesions are no longer well seen on ?? mammography. The 6:00 biopsied mass with adjacent open coil clip is ?? notably smaller, currently measuring approximately 7 mm in size. This ?? correlates well with the MRI. The 7:00 not biopsied mass with small ?? satellite lesion also appears visually significantly smaller. Refer to ?? the MRI report. ? ULTRASOUND: ?? CLINICAL INFORMATION: ?? As above. ? COMPARISON: ?? 04/25/2023 left breast ultrasound. 04/28/2023 left breast core biopsy ?? via ultrasound x 2. ? TECHNIQUE: ?? Targeted sonographic evaluation was performed using a high frequency ?? linear transducer. Attention left breast was given to the 7:00 in the ?? 6:00 axes were previously lesions were noted. Selected archived ?? documentation. ? FINDINGS: ? LEFT BREAST: ?? -Residual hypoechoic focus at 6:00 surrounding the biopsy clip most ?? likely hydromark material from the biopsy clip. There is an adjacent 5 ?? x 3 cm hypoechoic oval mass, most likely residual tumor, similar in ?? size to the recent MRI. ? -At 7:00, no definite residual mass could be detected. Please refer to ?? the recent MRI. ? MM/MM tomosynthesis diagnostic LT ?? IMPRESSION: ? 1. Significant reduction in size of all lesions seen on mammography. ?? Please refer to the recent MRI which is far more sensitive and ?? specific. ?? 2. Left breast ultrasound demonstrating small 5 x 3 mm hypoechoic ?? residual 6:00 mass abutting the biopsy clip. No definite residual mass ?? seen at 7:00 axis, or at the other sites as mentioned above. Again, ?? refer to the recent MRI which is far more sensitive and specific. ?? 3. No new suspicious findings left breast. ? OVERALL ASSESSMENT: ?? Mammography: BI-RADS 6 - Known biopsy proven malignancy ?? Ultrasound: BI-RADS 6 - Known biopsy proven malignancy ? RECOMMENDATION: ?? 1. Continued clinical and surgical management recommended. ? This patient's information was entered into a reminder system with a ?? target due date for their next mammogram. . ? Dictated By: ?All Avila MD ? Signed By: ?<Electronically signed by All Avila MD in OV> ?11/02/23 1214 ? DD/ 1130 ? TD/TT: ? Gold Beater: ? Procedure Note Donezekielter, Image - 11/02/2023 [facility] [address] [place] [address] Mammography Report Signed Patient: Paddy Henao#: [id number] 177 : 1985Acct:[id number] Age/Sex: 38 / FADM Date: 11/02/23 Loc: HO.MAMMO Attending Dr: Simon Fournier MD Ordering Physician: Simon Fournier MDResults: 6Known Biopsy Proven Malignancy Date of Service: 11/02/23Follow Up: 1 Year From Orig inal Mammogram Procedure(s): MM tomosynthesis diagnostic LT Accession Number(s): [id number] cc: Simon Fournier MD; Naa Leigh MD EXAMINATION: MM DIAGNOSTIC DIGITAL BREAST TOMOSYNTHESIS, LEFT US BREAST LIMITED, LEFT MAMMOGRAPHY: CLINICAL INFORMATION: Follow-up multicentric sites of IDC left breast status post neoadjuvant chemotherapy. COMPARISON: MRI breast 10/10/2023, which is far more sensitive and specific than mammography or ultrasound. MRI breast 05/09/2023. Left mammography 04/28/2023, and bilateral mammography 04/25/2023. Left ultrasound 04/16/2023, and ultrasound-guided biopsy left x 2 sites (6:00 axis and 2:00 axis), 04/28/2023. TECHNIQUE: Digital breast tomosynthesis is performed in the following views: Full-field 3-D digital left CC, ML views, and 2-D spot magnification left CC and ML views. This was followed by targeted left breast ultrasound focused to the 6 and 7:00 axes left breast FINDINGS: The breasts are heterogeneously dense, which may obscure small masses (ACR BI-RADS breast composition Category c). Please refer to the recent MRI which is far more sensitive and specific. The the left 2:00 and 8:00 lesions are no longer well seen on mammography. The 6:00 biopsied mass with adjacent open coil clip is notably smaller, currently measuring approximately 7 mm in size. This correlates well with the MRI. The 7:00 not biopsied mass with small satellite lesion also appears visually significantly smaller. Refer to the MRI report. ULTRASOUND: CLINICAL INFORMATION: As above. COMPARISON: 04/25/2023 left breast ultrasound. 04/28/2023 left breast core biopsy via ultrasound x 2. TECHNIQUE: Targeted sonographic evaluation was performed using a high frequency linear transducer. Attention left breast was given to the 7:00 in the 6:00 axes were previously lesions were noted. Selected archived documentation. FINDINGS: LEFT BREAST: -Residual hypoechoic focus at 6:00 surrounding the biopsy clip most likely hydromark material from the biopsy clip. There is an adjacent 5 x 3 cm hypoechoic oval mass, most likely residual tumor, similar in size to the recent MRI. -At 7:00, no definite residual mass could be detected. Please refer to the recent MRI. MM/MM tomosynthesis diagnostic LT IMPRESSION: 1. Significant reduction in size of all lesions seen on mammography. Please refer to the recent MRI which is far more sensitive and specific. 2. Left breast ultrasound demonstrating small 5 x 3 mm hypoechoic residual 6:00 mass abutting the biopsy clip. No definite residual mass seen at 7:00 axis, or at the other sites as mentioned above. Again, refer to the recent MRI which is far more sensitive and specific. 3. No new suspicious findings left breast. OVERALL ASSESSMENT: Mammography: BI-RADS 6 - Known biopsy proven malignancy Ultrasound: BI-RADS 6 - Known biopsy proven malignancy RECOMMENDATION: 1. Continued clinical and surgical management recommended. This patient's information was entered into a reminder system with a target due date for their next mammogram. . Dictated By: All Avila MD Signed By: <Electronically signed by All Avila MD in OV> 11/02/23 1214 DD/ 1130 TD/TT: Gold Beater: [facility] External Provider IMG BI PROCEDURES Final Result * Hepatitis Panel, General (10/20/2023 11:24 AM EDT) Hepatitis A IgM Nonreactive Nonreactive [facility] Comment:IgM antibodies to GILMORE V not detected; does not exclude earlyacute or recovered HAV infection. ~Hepatitis B Surface Antibody REACTIVE Nonreactive [facility] Comment:REACTIVE: > 11.99 mI U/mL Hepatitis B Core Antibody Nonreactive Nonreactive [facility] Hepatitis C Antibody Nonreactive Nonreactive [facility] Comment:Antibodies to HCV no t detected; does not exclude early acuteHCV infection. Hepatitis B Surface Ag Negative Negative [facility] 10/20/2023 11:2 4 AM EDT 10/20/2023 11:24 AM EDT us Generic External Data Provider LAB BLOOD ORDERAB LES Final Result [facility] [address] [place] [phone] * (ABNORMAL) Lipid Panel, Standard (10/20/2023 11:24 AM EDT) Triglycerides 306(H) <150 mg/dL [facility] Comment:Desirable Triglyceri de: less than 150 mg/dLBorderline High Triglyceride 150-199 mg/dLHigh Triglyceride: 200-499 mg/dLVery High Triglyceride: greater than or equal to 5OO mg/dL Cholesterol 263(H) <200 mg/dL [facility] Comment:Desirable Cholestero l: less than 200 mg/dLBorderline High Cholesterol: 200-239 mg/dLHigh Cholesterol: greater than 239 mg/dL LDL Cholesterol Calculated 148(H) <100 mg/dL [facility] Comment:Desirable LDL: less than 100 mg/dLNear Optimal/Above Optimal LDL: 110- 129 mg/dLBorderline High LDL: 130-159 mg/dLHigh LDL: 160-189 mg/dLVery High LDL: greater than or equal to 190 mg/dL HDL Cholesterol 54 >40 mg/dL [facility] Comment:Desirable HDL: great er than 40 mg/dL Note: This HDL assay may give artificially low results in patients with liver disease. Blood Venous blood specimen / Unknown 10/20/2023 11:24 AM EDT 10/20/2023 11:24 AM EDT us Naa Roberts MD LAB BLOOD ORDERAB LES Final Result Performing Organization Address [facility]/ZIP Co de Phone Number [facility] [address] [place] [phone] * HPV mRNA E6/E7 w/Reflex to HPV Genotypes 16, 18/45 (08/08/2023 9:33 AM EDT) HPV nRNA E6/E7 Not Detected Not Detected [facility] Comment:Methodology: Transcr iption-Mediated AmplificationThis assay detects E6/E7 viral messenger RNA (mRNA) from 14high-risk HPV types (16,18,31,33,35,39,45,51,52,56,58,59,66,68).Cervical sources are required for HPV testing.If a vaginal source from a patient who has had atotal hysterectomy with removal of cervix wassubmitted, please contact the testing laboratoryfor alternative testing options.For additional information, please refer tohttp://education.[employer]ov[employer]/faq/JWK662a9(This link if provided for information/educational purposes only.)THIS TEST WAS PERFORMED AT:[facility] [place] [phone] HORNE MD HPV mRNA E6/E7 [facility] HPV 16 RNA [facility] HPV 18/45 RNA [facility] 08/08/2023 9:33 AM EDT 08/09/2023 8:45 AM EDT us Kerwin Lvoe CNM LAB CYTOLOGY ORDERABLES F inal Result Performing Organization Address [facility]/ZIP Co de Phone Number [facility] [address] [place] [phone] * Pap Smear (08/08/2023 9:33 AM EDT) Swab Cervix uteri structure / Unknown 08/08/2023 9:33 AM EDT 08/09/2023 8:45 AM EDT [facility] - 08/23/2023 12:57 PM EDT ----- ------- Name: Yoandy Henao ?Age/Sex: 38/F ? : 1985 Unit#: [id number] ?? Attend Dr: KERWIN LOVE Lulu ?Re08/08/23 ?Status: DEP REF ? Location: HO.LNP ?Disch: ? ----- ------- SPEC : [id number] ? RECD: 08/09/23-844 ? STATUS: ??SOUT ? REQ NUM: [id number] ? SELENA: 08/08/23-932 ? SUBM DR: KERWIN LOVE CNM ? ENTERED: ??08/09/23-1052 ?SP TYPE: Pap Smr ?OTHR : ? ORDERED: ??Pap Smear, PAP path review ? Interpretation ?? General Category: ? Negative for intraepithelial lesion/malignancy. ?? Adequacy: ? Endocervical component absent. ?? Interpretation: ? Reactive cellular changes. ? HPV mRNA E6/E7: ?NOT DETECTED ? This assay detects E6/E7 viral messenger RNA (mRNA) from 14 high-risk HPV types (16, 18, ?? 31, 33, 35, 39, 45, 51, 52, 56, 58, 59, 66, 68) ? HPV testing performed by [facility], [place], [place]. ??See reference laboratory ?? portion of the EMR for entire report. ?Clinical Information LMP: Unknown date Previous PAP test: 06/2018, WNL ? Material Received ?? ThinPrep-Cervical ----- ------- Signed (signature on file) Janis Lakehead 08/23/23 1257 ? ----- ------- ? END OF REPORT ? us Kerwin Love [facility] CYTOLOGY ORDERABLES F inal Result [facility] [address] [place] [phone] * HIV-1/2 Antigen and Antibodies, Fourth Generation, with Reflexes (09/08/2022 8:29 AM EDT) [facility] HIV Antigen/Antibody, 4th Generation NON-REAC TIVE NON-REAC TIVE [facility] Comment: HIV-1 antigen and HIV-1/HIV-2 antibodies were not detected. There is no laboratory evidence of HIV infection. PLEASE NOTE: This information has been disclosed to you from records whose confidentiality may be protected by state law. ??If your state requires such protection, then the state law prohibits you from making any further disclosure of the information without the specific written consent of the person to whom it pertains, or as otherwise permitted by law. A general authorization for the release of medical or other information is NOT sufficient for this purpose. ?? For additional information please refer to http://education.[employer]/faq/PPF616 (This link is being provided for informational/ educational purposes only.) The performance of this assay has not been clinically validated in patients less than 2 years old. Blood Venous blood specimen / Unknown 09/08/2022 8:29 AM EDT 09/08/2022 8:30 AM EDT Narrative [facility] - 09/10/2022 3:43 PM EDT FASTING:YES FASTING: YES Naa Roberts MD LAB BLOOD ORDERAB LES Final Result [facility] [address] [facility], [place] [phone] [facility] [address] [place] [phone] from Last 3 Months or Most Recently Relevant to Health Maintenance Insurance [employer] STANDARD Care Teams Grader Marker Relationship Specialty Start Date End Date Naa Leigh MD [address] [place] [phone] PCP - General Internal Medicine 08/04/22 [facility] 01/19/24
--- OUTSIDE RECORDS SUMMARY | 2024-05-22 14:24 | XMS_ITS | Encounter Summary ---
Author Organization [employer] Address [address] [facility] 7 [place] [address] Care Team Providers Care Channel Cementer Insole Machine Name Role Phone Naa Leigh MD Primary Care Pro vider Reason for Visit * Reason Comments Med Refill Encounter Details Date Type Department Care Team ([facility] st Contact Info) Description 08/05/2023 Refill [facility] [address], [place] [phone] Naa Leigh MD [address] [place], [place] [phone] Social History Tobacco Use Types Packs/Day Years Used Date Smoking Tobacco: Never Smokeless Tobacco: Never Alcohol Use Standard Drinks/Week Comments Yes 0 (1 standard drink = 0.6 oz pur e alcohol) social Depression Answer Date Recorded Patient Health Questionnaire-9 Score 5 09/15/2022 Housing Stability Answer Date Recorded What is your housing situation today? I have marleny manuel 01/14/[address] you li ve. Do you have problems with any of the following? None of the above 01/14/2023 Food Insecurity Answer Date Recorded Within the past 12 months, y ou worried that your food would run out before you got money to buy more: Never True 01/14/2023 Within the past 12 months,th e food you bought just didn't last and you didn't have enough money to get more: Never True Transportation Answer Date Recorded In the past 12 months, has l ack of transportation kept you from medical appts, meetings, work or from getting things needed for daily living? No 01/14/2023 Utilities Answer Date Recorded In the past 12 months, has t he electric, gas, oil or water company threatened to shut off services in your home? No 01/14/2023 Depression Answer Date Recorded Patient Health Questionnaire-2 Score 0 09/15/2022 Comments No Sex and Gender Information Value Date Recorded Sex Assigned at Female 01/25/2022 10:40 AM EDT Legal Sex Female 10:40 AM EDT Gender Identity Female 01/25/2022 10:40 AM EDT Sexual Orientation Straight 11/09/2022 11 :44 AM EDT documented as of this encounter Plan of Treatment Upcoming Encounters Date Type Department Care Team (Late st Contact Info) Description 07/11/2024 9:00 AM EDT Office Visit [facility] [address] [place] [phone] Naa Leigh MD [address] [place] [address] [phone] documented as of this encounter Visit Diagnoses Not on filedocumented in this encounter Additional Health Concerns Assessment Noted Time PHQ-9 Depression Total Score: 5 09/16/19 9:07 AM EDT documented as of this encounter Care Teams Channel Cementer Insole Machine Relationship Specialty Start Date End Date Naa Leigh MD [address] [place] [phone] PCP - General Internal Medicine 08/04/22 [facility] 01/19/24 documented as of this encounter
--- OUTSIDE RECORDS SUMMARY | 2024-05-22 14:24 | XMS_ITS | Patient Health Record ---
Author Organization [facility] Address [address] [place] [address] Care Team Providers Care Reinforcer Name Role Phone ChandrakantTamrad Primary Care Provider ALLERGIES No Known Allergies REASON FOR REFERRAL No Information MEDICATIONS Medication SIG (Take, Route, Fr equency, Duration) Notes Start Date End Date Status Famotidine 20 MG 1 tablet at bedtime as needed Orally Once a day for 30 day(s) 01/23/2021 Active Sertraline HCl 50 MG 1 tablet Orally one every night for 90 days 01/08/2021 Active IMMUNIZATIONS Vaccine Route Administration Date Status Comme nts Influenza- Afluria Quadrivalant Unknown 02/06/2017 Admi nistered SOCIAL HISTORY Tobacco Use: Social History Observation Description Date Details (start date - stop date) Never Smoker NA - NA Sex Assigned At : Social History Observation Description Sex Assigned At Unknown Alcohol Question Answer Notes Did you have a drink containing alcohol in the p ast year? Yes How many drinks did you have on a typical day when you were drinking in the past year? 1 or 2 (0 points) How often did you have six o r more drinks on one occasion in the past year? Never (0 points) Points 0 Interpretation Negative Smoking Question Answer Notes Are you a: never smoker 2017 PROBLEMS Problem Type ICD Code Onset Dates Problem Status W/U Status Risk SNOMED Code Notes Problem Hyperlipidemia, unspecified (E78.5) Active confirmed Hyperlipidemia (43133154) Problem Other mixed anxiety disorders (F41.3) Active confirmed Anxiety disorde r (240008638) Problem Essential (primary) hypertension (I10) Active confirmed Essential hypertension (58118970) PLAN OF TREATMENT Pending Test Test Name Order Date VENIPUNCT, ROUTINE* 01/19/2021 VENIPUNCT, ROUTINE* 04/27/2021 COMPREHENSIVE METABOLIC PANEL 01/19/2021 CBC (INCLUDES DIFF/PLT) 01/19/2021 LIPID PANEL 01/19/2021 TSH, 3RD GENERATION 01/19/2021 Insurance Providers Payer Name Payer Address Payer Phone Subscriber Number Group Number Insured Name Patient Relationship to Insured Coverage Start Date Coverage End Date [employer] [place] [id number] [place] [address] [id number] Yoandy Henao Self - patient is the insured MEDICAL (GENERAL) HISTORY Medical History History ICD Code Impaired Fasting fasting Glucose Hyperlipidemia Herniated Cervical and Lumbar Disk Follo wing 2017 Perrineal allergy Insomnia Cat, Mold , Dairy , Cockroach and Dust M ites Surgical History Surgery Date(Month/Year)
--- OUTSIDE RECORDS SUMMARY | 2024-05-22 14:24 | XMS_ITS | Encounter Summary ---
Author Organization [employer] Address [address] [facility] 7t [place] [address] Care Team Providers Care Therapist Radiation Name Role Phone Naa Leigh MD Primary Care Pro vider Encounter Details Date Type Department Care Team ([facility] Contact Info) Description 05/22/2024 Orders Only [facility] External Provider, [facility] Social History Tobacco Use Types Packs/Day Years Used Date Smoking Tobacco: Never Passive Smoke Exposure: Never Smokeless Tobacco: Never Alcohol Use Standard [...] Description 07/11/2024 9:00 AM EDT Office Visit [facility] [address] [place] [address] Naa Leigh MD [address] [place] [address] documented as of this encounter Procedures Procedure Name Priority Date/Time Associated Diagnosis Comments BI MAMMOGRAM SCREENING TOMOSYNTHESIS RIGHT Routine 05/22/2024 11:50 AM EST documented in this encounter Results * BI Mammogram Screening Tomosynthesis Right (05/22/2024 11:50 AM EST) Anatomical Region Laterality Modality Breast Right Mammography 05/22/2024 11:5 0 AM EST Narrative 05/22/2024 12:32 PM EST ? [facility] ? [address] ?[place] [address] ? Mammography Report ? Signed ? Patient: Juliano,Cathia ?MR#: [id number] ?? [id number] ? : 1985 ?Acct:[id number] ? Age/Sex: 39 / F ?ADM Date: 02/25/25 ? Loc: HO.MAMMO ? Attending Dr: Jan Donald MD ? Ordering Physician: Jan Donald MD ?Results: 1Nega ?? tive ? Date of Service: 05/22/24 ?Follow Up: 1 Year From Orig ?? inal Mammogram ? Procedure(s): MM tomosynthesis screening RT ?? Accession Number(s): [id number] ? cc: Jan Donald MD; Naa Leigh [...] ??Sabrina Neville DO ??05/22/2024 12:29 PM EST ?? RP ? Dictated By: ?Sabrina Neville DO ? Signed By: ?<Electronically signed by Sabrina Neville, DO in OV> ? 05/22/24 1229 ? DD/ 1150 ? TD/TT: 05/22/24 1220 ? Linter Drier Operator: ? Procedure Note Donotuseinterpreter, Image - 05/22/2024 [place] [facility] [address] [place] [address] Mammography Report Signed Patient: Yoandy HenaoMR#: [id number] : 1985Acct:[id number] Age/Sex: 39 / FADM Date: 05/22/24 Loc: HO.MAMMO Attending Dr: Jan Donald MD Ordering Physician: Jan Donaldesults: 1Nega tive Date of Service: 05/22/24Follow Up: 1 Year From Orig inal Mammogram Procedure(s): MM tomosynthesis screening RT Accession Number(s): [id number] cc: Jan Donald MD; Naa Leigh MD [...] by: Sabrina Neville DO 05/22/2024 12:29 PM EST RP Dictated By: Sabrina Neville DO Signed By: <Electronically signed by Sabrina Neville DO in OV> 05/22/24 1229 DD/ 1150 TD/TT: 05/22/24 1220 Linter Drier Operator: [facility] External Provider IMG BI PROCEDURES Final Result documented in this encounter Visit Diagnoses Not on filedocumented in this encounter Additional Health Concerns Assessment Noted Time PHQ-9 Depression Total Score: 5 09/16/19 23 9:07 AM EDT documented as of this encounter Care Teams Therapist Radiation Relationship Specialty Start Date End Date Naa Leigh MD [address] [place] [address] PCP - General Internal Medicine 08/04/22 [facility] 01/19/24 documented as of this encounter
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
--- OUTSIDE RECORDS SUMMARY | 2024-05-22 14:24 | XMS_ITS | Encounter Summary ---
Author Organization [employer] Address 75 [facility] 7 [place] [address] Care Team Providers Care Neck Fitter Name Role Phone Naa Leigh MD Primary Care Pro vider Reason for Visit * Reason Comments Med Change Request Encounter Details Date Type Department Care Team ([facility] st Contact Info) Description 02/24/2024 Refill [facility] [address] [place], [place] [phone] Naa Leigh MD [address] [place], [place] [phone] Social History Tobacco Use Types Packs/Day Years Used Date Smoking Tobacco: Never Passive Smoke Exposure: Never Smokeless Tobacco: Never Alcohol Use Standard Drinks/Week Comments Yes 0 (1 standard drink = 0.6 oz pur e alcohol) social Depression Answer Date Recorded Patient Health Questionnaire-9 Score 5 09/15/2022 Housing Stability Answer Date Recorded What is your housing situation today? I have marleny manuel 12/13/[address] you [...] Description 07/11/2024 9:00 AM EDT Office Visit [facility] MED[facility] [address] [place] [address] Naa Leigh MD [address] [place] [address] documented as of this encounter Visit Diagnoses Not on filedocumented in this encounter Additional Health Concerns Assessment Noted Time PHQ-9 Depression Total Score: 5 09/16/19 23 9:07 AM EDT documented as of this encounter Care Teams Neck Fitter Relationship Specialty Start Date End Date Naa Leigh MD [address] [place] [address] PCP - General Internal Medicine 08/04/22 [facility] 01/19/24 documented as of this encounter
--- OUTSIDE RECORDS SUMMARY | 2024-05-22 14:24 | XMS_ITS | Encounter Summary ---
Author Organization [employer] Address 75 [facility] [address] 7t [place] [address] Care Team Providers Care Flight Operations Specialist Name Role Phone Naa Leigh MD Primary Care Pro vider Reason for Visit * Reason Onset Date Comments Consuelo recall 05/03/2024 Encounter Details Date Type Department Care Team ([facility] st Contact Info) Description 05/03/2024 Telephone [facility] MED[facility]INE [address] [place] [address] Tamera Phillip [place] June recall Social History Tobacco Use Types Packs/Day Years [...] AM EDT documented as of this encounter Miscellaneous Notes * Telephone Encounter - Tamera Phillip [place] - 05/03/2024 3:59 PM EST T/C- [facility] Left Voice Mail to return call to schedule an appointment. Recall letter sent. Appointment: Office Visit Note: anxiety Month: June With: Alonso Please schedule appointment if Patient calls Back. documented in this encounter Plan of Treatment Upcoming Encounters Date Type Department Care Team (Late st Contact Info) Description 07/11/2024 9:00 AM EDT Office Visit [facility] [address] [place] [address] Naa Leigh MD [address] [place] [address] documented as of this encounter Visit Diagnoses Not on filedocumented in this encounter Additional Health Concerns Assessment Noted Time PHQ-9 Depression Total Score: 5 09/16/19 23 9:07 AM EDT documented as of this encounter Care Teams Flight Operations Specialist Relationship Specialty Start Date End Date Naa Leigh MD [address] [place] [address] PCP - General Internal Medicine 08/04/22 [facility] 01/19/24 documented as of this encounter
--- OUTSIDE RECORDS SUMMARY | 2024-05-22 14:24 | XMS_ITS | Encounter Summary ---
Author Organization [employer] Address 75 [facility] 7 [place] [address] Care Team Providers Care Plasma Center Technician Name Role Phone Naa Leigh MD Primary Care Pro vider Reason for Visit * Reason Onset Date Comments Med Refill 05/11/2024 Encounter Details Date Type Department Care Team ([facility] st Contact Info) Description 05/11/2024 Refill [facility] MED[facility]INE [address] [place], [place] [phone] Naa Leigh MD [address] [place], [place] [phone] Social History Tobacco Use Types Packs/Day Years [...] as of this encounter Miscellaneous Notes * Addendum Note - Dex Alcaraz RN - 05/11/2024 2:14 PM ESTAddended by: DEX ALCARAZ on: 05/11/2024 02:14 PM Modules accepted: Orders * Telephone Encounter - Lizzy Sahni - 05/11/2024 12:08 PM EST Patient walked in requesting medication refill: Gabapentin 300 mg Flexeril 5 mg documented in this encounter Plan of Treatment Upcoming Encounters Date Type Department Care Team (Late st Contact Info) Description 07/11/2024 9:00 AM EDT Office Visit [facility] [address] [place] [address] Naa Leigh MD [address] [place] [address] documented as of this encounter Visit Diagnoses Not on filedocumented in this encounter Additional Health Concerns Assessment Noted Time PHQ-9 Depression Total Score: 5 09/16/19 23 9:07 AM EDT documented as of this encounter Care Teams Plasma Center Technician Relationship Specialty Start Date End Date Naa Leigh MD [address] [place] [address] PCP - General Internal Medicine 08/04/22 [facility] 01/19/24 documented as of this encounter
--- OUTSIDE RECORDS SUMMARY | 2024-05-22 14:24 | XMS_ITS | Encounter Summary ---
Author Organization [employer] Address [address] [place] [address] [address] [facility] [place] [address] Care Team Providers Care Water Resources Program Director Name Role Phone Naa Leigh MD Primary Care Pro vider Reason for Visit * Reason Onset Date Comments Med Refill 10/02/2022 Encounter Details Date Type Department Care Team ([facility] st Contact Info) Description 10/02/[address] [facility] MED[facility]INE [address] [place], [place] [phone] Naa Leigh MD [address] [place], [place] [phone] Social History Tobacco Use Types Packs/Day Years Used Date Smoking Tobacco: Never Smokeless Tobacco: Never Alcohol Use Standard Drinks/Week Comments Yes 0 (1 standard drink = 0.6 oz pur e alcohol) social Depression Answer Date Recorded Patient Health Questionnaire-9 Score 5 09/15/2022 Depression Answer Date Recorded Patient Health Questionnaire-2 Score 0 09/15/2022 Comments Unknown Sex and Gender Information Value Date Recorded Sex Assigned at Female 01/25/2022 10:40 AM EDT Legal Sex Female 10:40 AM EDT Gender Identity Female 01/25/2022 10:40 AM EDT Sexual Orientation Straight 11/09/2022 11 :44 AM EDT COVID-19 Exposure Response Date Recorded In the last 10 days, have yo u been in contact with someone who was confirmed or suspected to have Coronavirus/COVID-19? No / Unsure 09/15/2022 8:38 AM EDT documented as of this encounter Plan of Treatment Upcoming Encounters Date Type Department Care Team (Late st Contact Info) Description 07/11/2024 9:00 AM EDT Office Visit [facility] [address] [place] [address] Naa Leigh MD [address] [place] [address] documented as of this encounter Visit Diagnoses Not on filedocumented in this encounter Additional Health Concerns Assessment Noted Time PHQ-9 Depression Total Score: 5 09/16/19 23 9:07 AM EDT documented as of this encounter Care Teams Water Resources Program Director Relationship Specialty Start Date End Date Naa Leigh MD [address] [place] [phone] PCP - General Internal Medicine 08/04/22 [facility] 01/19/24 documented as of this encounter
== END 2024-05-22 11:47 | disposition home or self-care (01) ==
LOC: HO.MAMMO 11:46
PROVIDERS: Absent Provider Internal Medicine Medical Oncology; PCP Student in an Organized Health Care Education/Training Program; Visit Provider Surgery
DX: Z12.31 Encounter for screening mammogram for malignant neoplasm of breast (principal)
CPT/HCPCS: 77063; 77067

== ENCOUNTER → 2024-05-22 12:15 | Outpatient (BNV) | payer MEDICAID, SELFPAY | PROVIDERS: Absent Provider Internal Medicine Medical Oncology; PCP Student in an Organized Health Care Education/Training Program; Visit Provider Internal Medicine | DX: Z12.31 Encounter for screening mammogram for malignant neoplasm of breast (principal) | CPT/HCPCS: 77063; 77067 ==

== ENCOUNTER 2024-07-30 08:34 | Outpatient (REF) | payer MEDICAID, SELFPAY ==
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
--- OUTSIDE RECORDS SUMMARY | 2024-07-30 08:54 | XMS_ITS | Patient Health Record ---
Author Organization [facility] Address [address] [place] [address] Care Team Providers Care Contact And Service Clerks Supervisor Name Role Phone ChandrakantTamrad Primary Care Provider [phone] ALLERGIES No Known Allergies REASON FOR REFERRAL [...] Problem Hyperlipidemia, unspecified (E78.5) Active confirmed Hyperlipidemia (32148198) Problem Other mixed anxiety disorders (F41.3) Active confirmed Anxiety disorde r (414178908) Problem Essential (primary) hypertension (I10) Active confirmed Essential hypertension (54092725) PLAN OF TREATMENT Pending Test Test Name Order Date VENIPUNCT, ROUTINE* 01/19/2021 VENIPUNCT, ROUTINE* 04/27/2021 COMPREHENSIVE METABOLIC PANEL 01/19/2021 CBC (INCLUDES DIFF/PLT) 01/19/2021 LIPID PANEL 01/19/2021 TSH, 3RD GENERATION 01/19/2021 Insurance Providers Payer Name Payer Address Payer Phone Subscriber Number Group Number Insured Name Patient Relationship to Insured Coverage Start Date Coverage End Date ZULEIKA De La O [id number] [place] [address] [id number] Yoandy Henao Self - patient is the insured MEDICAL (GENERAL) HISTORY Medical History History ICD Code Impaired Fasting fasting Glucose Hyperlipidemia Herniated Cervical and Lumbar Disk Follo wing 2017 Perrineal allergy Insomnia Cat, Mold , Dairy , Cockroach and Dust M ites Surgical History Surgery Date(Month/Year)
--- OUTSIDE RECORDS SUMMARY | 2024-07-30 08:54 | XMS_ITS | Encounter Summary ---
Author Organization [employer] Address [address] [facility] 7 [place] [address] Care Team Providers Care Executive Creative Director Name Role Phone Naa Leigh MD Primary Care Pro vider Reason for Visit * Reason Comments Med Change Request Encounter Details Date Type Department Care Team ([facility] st Contact Info) Description 02/24/2024 Refill [facility] MEDICINE [address] [place], [place] [phone] Naa Leigh MD [address] [place], [place] [phone] Social History Tobacco Use Types Packs/Day Years [...] Care Team (Late st Contact Info) Description 08/07/2024 9:00 AM EDT Office Visit [facility] MEDICINE [address] [place] [address] CNM [address] [place] [address] 10/25/2024 9:00 AM EDT Office Visit [facility] MEDICINE [address] [place] [phone] Naa Leigh MD [address] [place] [phone] documented as of this encounter Visit Diagnoses Not on filedocumented in this encounter Additional Health Concerns Assessment Noted Time PHQ-9 Depression Total Score: 5 09/16/19 23 9:07 AM EDT documented as of this encounter Care Teams Executive Creative Director Relationship Specialty Start Date End Date Naa Leigh MD [address] [place] [phone] PCP - General Internal Medicine 08/04/22 [facility] 01/19/24 documented as of this encounter
--- OUTSIDE RECORDS SUMMARY | 2024-07-30 08:54 | XMS_ITS | Encounter Summary ---
Author Organization [employer] Address [address] [facility] 7 [place] [address] Care Team Providers Care Oxyacetylene Welder Name Role Phone Naa Leigh MD Primary Care Pro vider Reason for Visit * Reason Comments Med Refill Encounter Details Date Type Department Care Team ([facility] st Contact Info) Description 08/05/2023 Refill [facility] MEDICINE [address] [place], [place] [phone] Naa Leigh MD [address] [place], [place] [phone] Social History Tobacco Use Types Packs/Day Years [...] Description 08/07/2024 9:00 AM EDT Office Visit [facility] MEDICINE [address] [place] [address] CNM [address] [place] [phone] 10/25/2024 9:00 AM EDT Office Visit [facility] MEDICINE [address] [place] [address] Naa Leigh MD [address] [place] [address] [phone] documented as of this encounter Visit Diagnoses Not on filedocumented in this encounter Additional Health Concerns Assessment Noted Time PHQ-9 Depression Total Score: 5 09/16/19 23 9:07 AM EDT documented as of this encounter Care Teams Oxyacetylene Welder Relationship Specialty Start Date End Date Naa Leigh MD [address] [place] [phone] PCP - General Internal Medicine 08/04/22 [facility] 01/19/24 documented as of this encounter
--- OUTSIDE RECORDS SUMMARY | 2024-07-30 08:54 | XMS_ITS | Encounter Summary ---
Author Organization [employer] Address [address] [place] [address] [address] [place] [address] Care Team Providers Care Insurance Job Titles Name Role Phone Naa Leigh MD Primary Care Pro vider Reason for Visit * Reason Onset Date Comments Med Refill 10/02/2022 Encounter Details Date Type Department Care Team ([facility] st Contact Info) Description 10/02/2022 Refill [facility] MEDICINE [address] [place], [place] [phone] Naa Leigh MD [address] [place], [place] [phone] Social History Tobacco Use Types Packs/Day Years [...] Description 08/07/2024 9:00 AM EDT Office Visit [facility] MEDICINE [address] [place] [address] CNM [address] [place] [address] 10/25/2024 9:00 AM EDT Office Visit [facility] MEDICINE [address] [place] [address] Naa Leigh MD [address] [place] [address] documented as of this encounter Visit Diagnoses Not on filedocumented in this encounter Additional Health Concerns Assessment Noted Time PHQ-9 Depression Total Score: 5 09/16/19 23 9:07 AM EDT documented as of this encounter Care Teams Insurance Job Titles Relationship Specialty Start Date End Date Naa Leigh MD [address] [place] [phone] PCP - General Internal Medicine 08/04/22 [facility] 01/19/24 documented as of this encounter
--- OUTSIDE RECORDS SUMMARY | 2024-07-30 08:54 | XMS_ITS | Clinical Summary ---
Author Organization [employer] Address [address] [facility] [address] [place] [address] Care Team Providers Care Gizzard Skin Remover Name Role Phone Naa Leigh MD Primary Care Pro vider Allergies Active Allergy Reactions Criticality Noted Date Comments Bacid 12/06/2022 Medications loratadine (Claritin) 10 MG tablet TAKE 1 TABLET BY MOUTH EVERY DAY NEEDED FOR ALLERGY Active ketotifen (Zaditor) 0.025 % ophthalmic solution One drop to eyes bid prn allergies 5 mL 3 Active Fiber-Lax 625 MG tablet TAKE 1 TABLET BY MOUTH EVERY DAY WITH A FULL GLASS OF WATER Active famotidine (Pepcid) 40 MG tablet Take 40 mg by mouth at bedtime. 024 Active senna (Senokot) 8.6 MG tablet TAKE 2 TABLETS BY MOUTH EVERY DAY AT BEDTIME NEEDED FOR CONSTIPATION Active cyclobenzaprine (Flexeril) 5 MG tablet TAKE 1 TABLET BY MOUTH AT BEDTIME FOR 10 DAYS 10 tablet Active gabapentin (Neurontin) 400 MG capsule Take 1 capsule (400 mg) by mouth at bedtime. 90 capsule 025 2025 Active tamoxifen (Nolvadex) 20 MG chemo tablet Take 1 tablet by mouth Once per day. Active ondansetron ODT (Zofran-ODT) 8 MG disintegrating tablet DISSOLVE 1 TABLET ON tonuge EVERY 8 HOURS 024 2024 Discontinued(O ther) desonide (DesOwen) 0.05 % cream APPLY 1 GRAM TOPICALLY THREE TIMES DAILY 024 2024 Discontinued(O ther) escitalopram (Lexapro) 5 MG tablet Take 1 tablet (5 mg) by mouth Once per day. 30 tablet 2 024 2024 Discontinued(O ther) gabapentin (Neurontin) 300 MG capsule Take 1 capsule (300 mg) by mouth at bedtime. 90 capsule 025 2024 Discontinued Active Problems Problem Noted Date Diagnosed Date Lesion of ovary 07/11/2024 Adrenal nodule 07/11/2024 Breast cancer 07/14/2023 Transaminitis 07/14/2023 Back pain 04/14/2023 Hypertension [...] record-already requested by pt---From records reviewed from EXHIBITS CURATOR-pt had pap smear in 2018 -reported as neg w neg HPV and rec to repeat test in 5 years -aprox 2023 -contraception: continue progestin pill daily-tolerating well ( -reports hx of SE w estrogen pills,IUD, inj) -vaccines:s/p MMRx3, hep A x2, hep Bx3--immune now, tdap 2019, HPV x 3 w her EXHIBITS CURATOR per pt,COVID 19 x2-advised today again x Bivalent dose but refusing Assessment & Plan (09/15/2022 1:59 PM EDT): -PPD neg per pt -pap smear: 2019 neg per pt --pd to get record-already requested by pt---From records reviewed from EXHIBITS CURATOR-pt had pap smear in 2018 -reported as neg w neg HPV and rec to repeat test in 5 years -aprox 2023 -contraception: continue progestin pill daily-tolerating well ( -reports hx of SE w estrogen pills,IUD, inj) -vaccines:s/p MMRx3, hep A x2, hep Bx3--immune now, tdap 2019, HPV x 3 w her EXHIBITS CURATOR per pt,COVID 19 x2-advised today x Bivalent dose but refusing Assessment & Plan (08/05/2022 12:36 PM EDT): From records reviewed from EXHIBITS CURATOR-pt had pap smear in 2019 -reported as neg w neg HPV and rec to repeat test in 5 years -aprox 2023 Assessment & Plan (08/04/2022 12:28 PM EDT): [...] tdap 2018, HPV x 3 w her EXHIBITS CURATOR per pt,COVID 19 x2-advised today x Bivalent dose. Overweight (BMI 25.0-29.9) 08/04/2022 Assessment & Plan (11/10/2022 9:15 AM EDT): Advised pt to improve diet and exercise,discussed healthy life style 07/2022 Total ch 211, LDL 128,Fasting gl 106 w normal hb1AC, AST wnl,ALT 31- slight elevated -will monitor weight -already started care w paper feeder -repeat fasting lipids in 1 y and fasting chem in 6 mo from last labs -aprox 01/2023 Assessment & Plan (09/15/2022 1:59 PM EDT): Advised pt to improve diet and exercise,discussed healthy life style 07/2022 Total ch 211, LDL 128,Fasting gl 106 w normal hb1AC, AST wnl,ALT 31- slight elevated -will monitor weight -referred today to paper feeder -repeat fasting lipids in 1 y and [...] Problem Noted Date Diagnosed Date Resolved Date Skin infection 02/02/2024 07/11/2024 Folliculitis 11/18/2023 12/13/2023 Assessment & Plan (11/18/2023 10:29 AM EDT): In light that patient just finish her chemo I will treat folliculitis systemically with doxycycline, I will also cover for possible fungal etiology and due to severe itchiness I will prescribed clotrimazole betamethasone cream, reports back if rash persists, ED precautions reviewed Encounters Date Type Department Care Team Description 07/11/2024 9:00 AM EDT Office Visit [facility] [address] [place] [phone] Naa Leigh MD Cyst of right ovary (Primary Dx); Dietary counseling; Exercise counseling; Malignant neoplasm of left breast in female, estrogen receptor positive, unspecified site of breast (CMS/HCC); Hypertension, unspecified type; Anxiety; Cyst in neck at ; Health care maintenance; Transaminitis; Lesion of ovary; Adrenal nodule (CMS/HCC) 07/11/2024 Travel 07/10/2024 Travel 07/04/2024 Patient Outreach [facility] [address] [place] [address] Naa Leigh MD Pre-visit Planning ([facility] unable to reach [facility]) 07/03/2024 Orders Only [facility] [address] [place] [phone] Naa Leigh MD 07/02/2024 Telephone [facility] [address] [place] [phone] Naa Leigh MD chart prep 06/08/2024 Population Health Risk Score [facility] [address] [phone] Provider, Population Health Generic 06/01/2024 Travel 05/22/2024 Orders Only [facility] External Provider, [facility] 05/11/2024 Refill [facility] [address] [place] [address] [phone] Naa Leigh MD 05/03/2024 Telephone [facility] [address] [place] [address] Tamera Phillip [place] June recall from Last 3 Months Immunizations Name Administration Dates Next Due DTP 04/23/1988,02/04/1987,06/29/1985 ,1984 Hep A, Adult 07/03/2019,11/23/2018 Hep B, adult 07/03/2019,01/29/2019,11/23/2018 HiB, unspecified 02/04/1987 Influenza, IIV3, injectable 03/12/2019 MMR 07/19/2018,1988,03/02/1986 OPV, Trivalent 04/23/1988,02/04/1987,06/29/1985 ,1984 Pfizer Covid-19 Vaccine 12+ 06/30/2020, 1 Tdap 11/23/2018 Family History Medical History Relation [...] Answer Date Recorded Patient Health Questionnaire-9 Score 9 07/11/2024 Patient Health Questionnaire-9 Score 9 07/11/2024 Last PHQ-9: Questionnaire Data Not on file 0 07/11/2024 Housing Stability Answer Date Recorded What is [...] Date Recorded Patient Health Questionnaire-2 Score 0 07/11/2024 Internet Access Answer Date Recorded Internet Access [...] Sign Reading Time Taken Comments Blood Pressure 127/82 07/11/2024 11:55 AM EDT Pulse 94 07/11/2024 11:55 AM EDT Temperature 36.3 ??C (97.3 ??F) 07/11/2024 11:55 AM E DT Respiratory Rate 20 07/11/2024 11:55 AM EDT Oxygen Saturation 98% 07/11/2024 11:55 AM EDT Inhaled Oxygen Concentration - - Weight 69.6 kg (153 lb 6.4 oz) 07/11/2024 11:55 AM EDT Height 157.5 cm (5' 2 ) 12/13/2023 9:03 AM EDT Body Mass Index 28.06 12/13/2023 9:03 AM EDT Plan of Treatment Upcoming Encounters Date Type Department Care Team (Late st Contact Info) Description 08/07/2024 9:00 AM EDT Office Visit [facility] [address] [place] [phone] Kerwin Love CNM [address] [place] [phone] 10/25/2024 9:00 AM EDT Office Visit [facility] [address] [place] [phone] Naa Leigh MD [address] [place] [phone] Health Maintenance Due Date Last Done Comments Alcohol/Substance Use Screening 1996 Influenza Vaccine (#1) 2023 03/12/2019 Family Planning (PISQ) 08/07/2024 08/08/2023 SDOH Screening 12/12/2024 12/13/2023 Tobacco Screening 02/01/2025 02/02/2024 Mammogram 05/22/2025 05/22/2024, 08/0 09/2023, 11/02/2023, Additional history exists Depression Screening 07/11/2025 07/11/2024, 07/12/19 Cervical Cancer Screening 08/07/2028 HPV/Cotest 08/07/2028 08/08/2023 [...] TOMOSYNTHESIS RIGHT Routine 05/22/2024 11:50 AM EST HEPATITIS PANEL, GENERAL Routine 10/20/2023 11:24 AM [...] EST Narrative 05/22/2024 12:32 PM EST ? [facility] [place] ? [address] [facility] ?[place] [address] ? Mammography Report ? Signed ? Patient: Juliano,Cathia ?MR#: [id number] ?? [id number] ? : 1985 ?Acct:[id number] ? Age/Sex: 39 / F ?ADM Date: /25/25 ? Loc: HO.MAMMO ? Attending Dr: Jan Donald MD ? Ordering Physician: Jan Donald MD ?Results: 1Nega ?? tive ? Date of Service: 05/22/24 ?Follow Up: 1 Year From Orig ?? inal Mammogram ? Procedure(s): MM tomosynthesis screening RT ?? Accession Number(s): [id number] ? cc: Jan Donald MD; Naa Leigh [...] DD/ 1150 ? TD/TT: 05/22/24 1220 ? Ekg/Ecg Technician: ? Procedure Note Donotuseinterpreter, Image - 05/22/2024 Delroy [facility] [address] [place] [address] Mammography Report Signed Patient: Paddy Henao#: [id number] : 1985Acct:[id number] Age/Sex: 39 / FADM Date: 05/22/24 Loc: MAMMO Attending Dr: Jan Donald MD Ordering Physician: Jan Donaldesults: 1Nega tive Date of Service: 05/22/24Follow Up: 1 Year From Orig inal Mammogram Procedure(s): MM tomosynthesis screening RT Accession Number(s): [id number] cc: Jan Donald MD; Naa Leigh MD [...] 05/22/24 1229 DD/ 1150 TD/TT: 05/22/24 1220 Ekg/Ecg Technician: [facility] External Provider IMG BI PROCEDURES Final Result * Hepatitis Panel, General (10/20/2023 11:24 AM EDT) Hepatitis A IgM Nonreactive Nonreactive [facility] Comment:IgM antibodies to GILMORE V not detected; does not exclude earlyacute or recovered HAV infection. ~Hepatitis B Surface Antibody REACTIVE Nonreactive [facility] Comment:REACTIVE: > 11.99 mI U/mL Hepatitis B Core Antibody Nonreactive Nonreactive [facility] Hepatitis C Antibody Nonreactive Nonreactive [facility] Comment:Antibodies to HCV no t detected; does not exclude early acuteHCV infection. Hepatitis B Surface Ag Negative Negative [facility] 10/20/2023 11:2 4 AM EDT 10/20/2023 11:24 AM EDT Generic External Data Provider LAB BLOOD ORDERAB LES Final Result Performing Organization Address City/State/[facility] Co de Phone Number [facility] [address] [place] [phone] * (ABNORMAL) Lipid Panel, Standard (10/20/2023 11:24 AM EDT) Triglycerides 306(H) <150 mg/dL [facility] Comment:Desirable Triglyceri de: less than 150 mg/dLBorderline High Triglyceride 150-199 mg/dLHigh Triglyceride: 200-499 mg/dLVery High Triglyceride: greater than or equal to 5OO mg/dL Cholesterol 263(H) <200 mg/dL [facility] Comment:Desirable Cholestero l: less than 200 mg/dLBorderline High Cholesterol: 200-239 mg/dLHigh Cholesterol: greater than 239 mg/dL LDL Cholesterol Calculated 148(H) <100 mg/dL [facility] Comment:Desirable LDL: less than 100 mg/dLNear Optimal/Above Optimal LDL: 110- 129 mg/dLBorderline High LDL: 130-159 mg/dLHigh LDL: 160-189 mg/dLVery High LDL: greater than or equal to 190 mg/dL HDL Cholesterol 54 >40 mg/dL [facility] Comment:Desirable HDL: great er than 40 mg/dL Note: This HDL assay may give artificially low results in patients with liver disease. Blood Venous blood specimen / Unknown 10/20/2023 11:24 AM EDT 10/20/2023 11:24 AM EDT us Naa Roberts MD LAB BLOOD ORDERAB LES Final Result [facility] [address] [place] [phone] * HPV mRNA E6/E7 w/Reflex to HPV Genotypes 16, 18/45 (08/08/2023 9:33 AM EDT) HPV nRNA E6/E7 Not Detected Not Detected [facility] Comment:Methodology: Transcr iption-Mediated AmplificationThis assay detects E6/E7 viral messenger RNA (mRNA) from 14high-risk HPV types (16,18,31,33,35,39,45,51,52,56,58,59,66,68).Cervical sources are required for HPV testing.If a vaginal source from a patient who has had atotal hysterectomy with removal of cervix wassubmitted, please contact the testing laboratoryfor alternative testing options.For additional information, please refer tohttp://education.LevelUp/faq/OHQ532q0(This link if provided for information/educational purposes only.)THIS TEST WAS PERFORMED AT:[facility] [place] [phone] HORNE MD HPV mRNA E6/E7 TNP [facility] HPV 16 RNA TNP [facility] HPV 18/45 RNA [facility] 08/08/2023 9:33 AM EDT 08/09/2023 8:45 AM EDT us Kerwin Love CNM LAB CYTOLOGY ORDERABLES F inal Result [facility] [address] [place] [phone] * Pap Smear (08/08/2023 9:33 AM EDT) Swab Cervix uteri structure / Unknown 08/08/2023 9:33 AM EDT 08/09/2023 8:45 AM EDT Narrative [facility] - 08/23/2023 12:57 PM EDT ----- ------- Name: Yoandy Henao ?Age/Sex: 38/F ? : 1985 Unit#: [id number] ?? Attend Dr: KERWIN LOVE CNM ?Re08/08/23 ?Status: DEP REF ? Location: HO.LNP ?Disch: ? ----- ------- SPEC : [id number] ? RECD: 08/09/23 ? STATUS: ??SOUT ? REQ NUM: [id number] ? SELENA: 08/08/23 ? SUBM DR: KERWIN LOVE CNM ? ENTERED: ??08/09/23 ?SP TYPE: Pap Smr ?OTHR DR: ? ORDERED: ??Pap Smear, PAP path review [...] 66, 68) ? HPV testing performed by [facility], [place], [place]. ??See reference laboratory ?? portion of the EMR for entire report. ?Clinical Information LMP: Unknown date Previous PAP test: 06/2018, WNL ? Material Received ?? ThinPrep-Cervical ----- ------- Signed (signature on file) Janis Anna 08/23/23 1257 ? ----- ------- ? END OF REPORT ? us Kerwin Love [facility] LAB CYTOLOGY ORDERABLES F inal Result [facility] [address] [place] [address] [phone] * HIV-1/2 Antigen and Antibodies, Fourth Generation, with Reflexes (09/08/2022 8:29 AM EDT) [facility] HIV Antigen/Antibody, 4th Generation NON-REAC TIVE NON-REAC TIVE [facility] Comment: HIV-1 antigen and HIV-1/HIV-2 antibodies were [...] ?? For additional information please refer to http://education.LevelUp/faq/EJD066 (This link is being provided for informational/ educational purposes only.) The performance of this assay has not been clinically validated in patients less than 2 years old. Blood Venous blood specimen / Unknown 09/08/2022 8:29 AM EDT 09/08/2022 8:30 AM EDT Narrative [facility] - 09/10/2022 3:43 PM EDT FASTING:YES FASTING: YES Naa Roberts MD LAB BLOOD ORDERAB LES Final Result [facility] [address], [place] [phone] [facility] [address] [place] [phone] from Last 3 Months or Most Recently Relevant to Health Maintenance Insurance [facility] STAND[facility] Care Teams Gizzard Skin Remover Relationship Specialty Start Date End Date Naa Leigh MD [address] [place] [phone] PCP - General Internal Medicine 08/04/22 [facility] 01/19/24
[2024-07-30 11:15] LABS: MANUAL DIFF FLAG NO
[2024-07-30 11:23] LABS: Basophils Percent Auto 0.7 % (0-2); Eosinophils Absolute Auto 0.1 X10*3/uL (0.0-0.4); Eosinophils Percent Auto 1.5 % (0-4); Hematocrit 40.1 % (37.0-47.0); Hemoglobin 13.1 g/dl (12.0-16.0); Imm Gran Abs Auto 0.03 X10*3/uL (0.00-0.03); Imm Gran Pct Auto 0.5 % (0.0-0.4); Lymphocytes Absolute Auto 0.8 X10*3/uL (1.2-4.9); Lymphocytes Percent Auto 14.1 % (20-40); Mean Corpuscular HGB Conc 32.7 g/dl (31.0-35.0); Mean Corpuscular Hemoglobin 30.2 pg (27.0-33.0); Mean Corpuscular Volume 92.4 fL (80.0-98.0); Mean Platelet Volume 10.7 fL (9.4-12.3); Monocytes Absolute Auto 0.5 X10*3/uL (0.1-1.2); Monocytes Percent Auto 8.8 % (2-11); Neutrophils Absolute Auto 4.1 x10*3/uL (2.0-8.3); Neutrophils Percent Auto 74.4 % (45-73); Platelet Count 181 X10*3/uL (160-400); Red Blood Count 4.34 X10*6/uL (4.20-5.50); Red Cell Distribution Width 12.6 % (11.0-16.0); White Blood Count 5.5 X10*3/uL (4.8-10.8)
[2024-07-30 11:59] LABS: Alanine Aminotransferase 80 U/L (0-31); Albumin Level 4.2 g/dL (3.5-5.0); Alkaline Phosphatase 93 U/L (39-117); Anion Gap 12 (12-20); Aspartate Amino Transferase 57 U/L (5-31); Bilirubin Direct 0.1 mg/dL (0.0-0.5); Bilirubin Total 0.4 mg/dL (0.0-1.0); Blood Urea Nitrogen 13 mg/dL (9-16); Calcium 9.4 mg/dL (8.4-10.2); Carbon Dioxide 26 mmol/L (22-29); Chloride 105 mmol/L (96-108); Cholesterol 224 mg/dL (<200); Estimated Glomerular Filt Rate > 60; Glucose Random 99 mg/dL (60-115); Potassium 4.3 mmol/L (3.3-5.1); Sodium 139 mmol/L (135-145); Total Protein 7.5 g/dL (6.5-8.0); Triglycerides 65 mg/dL (<150)
[2024-07-30 12:45] LABS: HDL Cholesterol 72 mg/dL (>40); LDL Cholesterol Calculated 139 mg/dL (<100)
== END 2024-07-30 08:35 | disposition home or self-care (01) ==
LOC: HO.HHCL 08:34
PROVIDERS: Internal Medicine Medical Oncology; Visit Provider Nurse Practitioner Family
DX: R74.01 Elevation of levels of liver transaminase levels (principal); C50.912 Malignant neoplasm of unspecified site of left female breast; Z00.00 Encounter for general adult medical examination without abnormal findings
CPT/HCPCS: 36415; 80053; 80061; 82248; 85025

== ENCOUNTER 2024-08-06 10:21 | Outpatient (AMB) | payer MEDICAID, SELFPAY ==
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
[2024-08-06 10:28] VITALS: BP 136/82; PULSE 110; O2SAT 99; BMI 28.5
--- OUTSIDE RECORDS SUMMARY | 2024-08-06 10:53 | XMS_ITS | Encounter Summary ---
Author Organization [employer] Address [address] [facility] [address] [place] [address] Care Team Providers Care Leather Goods Maker Name Role Phone Naa Leigh MD Primary Care Pro vider Reason for Visit * Reason Comments Med Refill Encounter Details Date Type Department Care Team (Late st Contact Info) Description 08/05/2023 Refill [facility] [address] [place], [place] [phone] Naa Leigh MD [address] [place], [place] [phone] Social History Tobacco Use Types Packs/Day Years [...] Description 08/07/2024 9:00 AM EDT Office Visit [facility] [address] [place] [phone] CNM [address] [place] [phone] 10/25/2024 9:00 AM EDT Office Visit [facility] [address] [place] [phone] Naa Leigh MD [address] [place] [address] [phone] documented as of this encounter Visit Diagnoses Not on filedocumented in this encounter Additional Health Concerns Assessment Noted Time PHQ-9 Depression Total Score: 5 09/16/19 9:07 AM EDT documented as of this encounter Care Teams Leather Goods Maker Relationship Specialty Start Date End Date Naa Leigh MD [address] [place] [phone] PCP - General Internal Medicine 08/04/22 [facility] 01/19/24 documented as of this encounter
--- OUTSIDE RECORDS SUMMARY | 2024-08-06 10:53 | XMS_ITS | Patient Health Record ---
Author Organization [facility] Address [address] [place] [address] Care Team Providers Care Molder Hand Name Role Phone ChandrakantTamrad Primary Care Provider [...] Problem Hyperlipidemia, unspecified (E78.5) Active confirmed Hyperlipidemia (11101143) Problem Other mixed anxiety disorders (F41.3) Active confirmed Anxiety disorde r (414042783) Problem Essential (primary) hypertension (I10) Active confirmed Essential hypertension (81744218) PLAN OF TREATMENT Pending Test Test Name Order Date VENIPUNCT, ROUTINE* 01/19/2021 VENIPUNCT, ROUTINE* 04/27/2021 COMPREHENSIVE METABOLIC PANEL 01/19/2021 CBC (INCLUDES DIFF/PLT) 01/19/2021 LIPID PANEL 01/19/2021 TSH, 3RD GENERATION 01/19/2021 Insurance Providers Payer Name Payer Address Payer Phone Subscriber Number Group Number Insured Name Patient Relationship to Insured Coverage Start Date Coverage End Date [employer] [place] [id number] [place] [address] [id number] Yoandy Henao Self - patient is the insured MEDICAL (GENERAL) HISTORY Medical History History ICD Code Impaired Fasting fasting Glucose Hyperlipidemia Herniated Cervical and Lumbar Disk Follo wing 2017 Perrineal allergy Insomnia Cat, Mold , Dairy , Cockroach and Dust M ites Surgical History Surgery Date(Month/Year)
--- OUTSIDE RECORDS SUMMARY | 2024-08-06 10:53 | XMS_ITS | Encounter Summary ---
Author Organization [employer] Address [address] [facility] [address] [place] [address] Care Team Providers Care International Guest Coordinator Name Role Phone Naa Leigh MD Primary Care Pro vider Reason for Visit * Reason Comments Med Change Request Encounter Details Date Type Department Care Team ([facility] st Contact Info) Description 02/24/2024 Refill [facility] [address] [place], [place] [phone] Naa Leigh MD [address] [place], [place] [phone] Social History Tobacco Use Types Packs/Day Years Used Date Smoking Tobacco: Never Passive Smoke Exposure: Never Smokeless Tobacco: Never Alcohol Use Standard Drinks/Week Comments Yes 0 (1 standard drink = 0.6 oz pur e alcohol) social Depression Answer Date Recorded Patient Health Questionnaire-9 Score 5 09/15/2022 Housing Stability Answer Date Recorded What is your housing situation today? I have marleyn manuel 12/13/[address] you [...] Office Visit [facility] [address] [place] [address] CNM [address] [place] [phone] 10/25/2024 9:00 AM EDT Office Visit [address] [address] Naa Leigh MD [address] [place] [phone] documented as of this encounter Visit Diagnoses Not on filedocumented in this encounter Additional Health Concerns Assessment Noted Time PHQ-9 Depression Total Score: 5 09/16/19 23 9:07 AM EDT documented as of this encounter Care Teams International Guest Coordinator Relationship Specialty Start Date End Date Naa Leigh MD [address] [place] [id number] PCP - General Internal Medicine 08/04/22 [employer] 01/19/24 documented as of this encounter
--- OUTSIDE RECORDS SUMMARY | 2024-08-06 10:53 | XMS_ITS | Encounter Summary ---
Author Organization [employer] Address [address] [place] [address] Care Team Providers Care Binder Caser Name Role Phone Naa Leigh MD Primary Care Pro vider Reason for Visit * Reason Onset Date Comments Med Refill 10/02/2022 Encounter Details Date Type Department Care Team ([facility] st Contact Info) Description 10/02/2022 Refill [facility] [address] [place] [address] Naa Leigh MD [address] [place] [address] Social History Tobacco Use Types Packs/Day Years [...] Description 08/07/2024 9:00 AM EDT Office Visit [facility] [address] [place], [place] [phone] CNM [address] [place] [address] 10/25/2024 9:00 AM EDT Office Visit [facility] [address] [place] [address] Naa Leigh MD [address] [place] [address] documented as of this encounter Visit Diagnoses Not on filedocumented in this encounter Additional Health Concerns Assessment Noted Time PHQ-9 Depression Total Score: 5 09/16/19 23 9:07 AM EDT documented as of this encounter Care Teams Binder Caser Relationship Specialty Start Date End Date Naa Leigh MD [address] [place] [phone] PCP - General Internal Medicine 08/04/22 [facility] 01/19/24 documented as of this encounter
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
--- OUTSIDE RECORDS SUMMARY | 2024-08-06 10:53 | XMS_ITS | Clinical Summary ---
Author Organization [employer] Address [address] [facility] 7t [place] [address] Care Team Providers Care Structural Layout Worker Name Role Phone Naa Leigh MD Primary Care Pro vider Allergies Active Allergy Reactions Criticality Noted Date Comments Bacid 12/06/2022 Medications loratadine (Claritin) 10 MG tablet TAKE 1 TABLET BY MOUTH EVERY DAY NEEDED FOR ALLERGY 09/07/19 23 Active ketotifen (Zaditor) 0.025 % ophthalmic solution One drop to eyes bid prn allergies 5 mL 3 05/12/19 24 Active Fiber-Lax 625 MG tablet TAKE 1 TABLET BY MOUTH EVERY DAY WITH A FULL GLASS OF WATER 09/08/19 24 Active famotidine (Pepcid) 40 MG tablet Take 40 mg by mouth at bedtime. 09/08/19 24 Active senna (Senokot) 8.6 MG tablet TAKE 2 TABLETS BY MOUTH EVERY DAY AT BEDTIME NEEDED FOR CONSTIPATION 09/08/19 24 Active cyclobenzaprine (Flexeril) 5 MG tablet TAKE 1 TABLET BY MOUTH AT BEDTIME FOR 10 DAYS 10 tablet 05/11/19 25 Active gabapentin (Neurontin) 400 MG capsule Take 1 capsule (400 mg) by mouth at bedtime. 90 capsule 07/04/19 25 026 Active tamoxifen (Nolvadex) 20 MG chemo tablet Take 1 tablet by mouth Once per day. Active ondansetron ODT (Zofran-ODT) 8 MG disintegrating tablet DISSOLVE 1 TABLET ON tonuge EVERY 8 HOURS 06/24/19 24 025 Discontin ued(Other ) desonide (DesOwen) 0.05 % cream APPLY 1 GRAM TOPICALLY THREE TIMES DAILY 09/06/19 24 025 Discontin ued(Other ) escitalopram (Lexapro) 5 MG tablet Take 1 tablet (5 mg) by mouth Once per day. 30 tablet 2 02/02/20 24 025 Discontin ued(Other ) Active Problems Problem Noted Date Diagnosed Date [...] record-already requested by pt---From records reviewed from [employer]-pt had pap smear in 2018 -reported as neg w neg HPV and rec to repeat test in 5 years -aprox 2023 -contraception: continue progestin pill daily-tolerating well ( -reports hx of SE w estrogen pills,IUD, inj) -vaccines:s/p MMRx3, hep A x2, hep Bx3--immune now, tdap 2019, HPV x 3 w her [employer] WORK[employer] per pt,COVID 19 x2-advised today again x Bivalent dose but refusing Assessment & Plan (09/15/2022 1:59 PM EDT): -PPD neg per pt -pap smear: 2019 neg per pt --pd to get record-already requested by pt---From records reviewed from [facility]-pt had pap smear in 2018 -reported as neg w neg HPV and rec to repeat test in 5 years -aprox 2023 -contraception: continue progestin pill daily-tolerating well ( -reports hx of SE w estrogen pills,IUD, inj) -vaccines:s/p MMRx3, hep A x2, hep Bx3--immune now, tdap 2019, HPV x 3 w her [employer] per pt,COVID 19 x2-advised today x Bivalent dose but refusing Assessment & Plan (08/05/2022 12:36 PM EDT): From records reviewed from [employer] [facility]-pt had pap smear in 2019 -reported as [...] tdap 2018, HPV x 3 w her [employer] per pt,COVID 19 x2-advised today x Bivalent dose. Overweight (BMI 25.0-29.9) 08/04/2022 Assessment & Plan (11/10/2022 9:15 AM EDT): Advised pt to improve diet and exercise,discussed healthy life style 07/2022 Total ch 211, LDL 128,Fasting gl 106 w normal hb1AC, AST wnl,ALT 31- slight elevated -will monitor weight -already started care w operations agent -repeat fasting lipids in 1 y and fasting chem in 6 mo from last labs -aprox 01/2023 Assessment & Plan (09/15/2022 1:59 PM EDT): Advised pt to improve diet and exercise,discussed healthy life style 07/2022 Total ch 211, LDL 128,Fasting gl 106 w normal hb1AC, AST wnl,ALT 31- slight elevated -will monitor weight -referred today to operations agent -repeat fasting lipids in 1 y and [...] Encounters Date Type Department Care Team Description 08/03/2024 Orders Only [facility] [address] [place] [phone] Naa Leigh MD 07/30/2024 Orders Only GENERIC EXTERNAL DATA DEPARTMENT Provider, Generic External Data 07/11/2024 9:00 AM EDT Office Visit [address] [address] Naa Leigh MD Cyst of right ovary (Primary Dx); Dietary counseling; Exercise counseling; Malignant neoplasm of left breast in female, estrogen receptor positive, unspecified site of breast (CMS/HCC); Hypertension, unspecified type; Anxiety; Cyst in neck at ; Health care maintenance; Transaminitis; Lesion of ovary; Adrenal nodule (CMS/HCC) 07/11/2024 Travel 07/10/2024 Travel 07/04/2024 Patient Outreach [facility] [address] [place], [place] [phone] Naa Leigh MD Pre-visit Planning ([facility] unable to reach [facility]) 07/03/2024 Orders Only [facility] [address] [place] [address] Naa Leigh MD 07/02/2024 Telephone [facility] [address] [place] [phone] Naa Leigh MD chart prep 06/08/2024 Population Health Risk Score [facility] [address] [phone] Provider, Population Health Generic 06/01/2024 Travel 05/22/2024 Orders Only [facility] External Provider, [facility] 05/11/2024 Refill [facility] [address] [place] [address] Naa Leigh MD from Last 3 Months [...] Description 08/07/2024 9:00 AM EDT Office Visit [facility] [address] [place] [phone] Kerwin Love CNM [address] [place] [phone] 10/25/2024 9:00 AM EDT Office Visit [facility] [address] [place] [address] Naa Leigh MD [address] [place] [phone] Health Maintenance Due Date Last Done Comments [...] Procedure Name Priority Date/Time Associated Diagnosis Comments CBC WITH AUTO DIFFERENTIAL Routine 07/30/2024 8:36 AM EDT BI MAMMOGRAM SCREENING TOMOSYNTHESIS RIGHT Routine 05/22/2024 [...] Recently Relevant to Health Maintenance Results * (ABNORMAL) CBC auto differential (07/30/2024 8:36 AM EDT) White Blood Count 5.5 4.8 - 10.8 X10*3/uL [facility] Red Blood Count 4.34 4.20 - 5.50 X10*6/uL [facility] Hemoglobin 13.1 12.0 - 16.0 g/dl [facility] Hematocrit 40.1 37.0 - 47.0 % [facility] Mean Corpuscular Volume 92.4 80.0 - 98.0 fL [facility] Mean Corpuscular Hemoglobin 30.2 27.0 - 33.0 pg [facility] Mean Corpuscular HGB Conc 32.7 31.0 - 35.0 g/dl [facility] Red Cell Distribution Width 12.6 11.0 - 16.0 % [facility] Platelet Count 181 160 - 400 X10*3/uL [facility] Mean Platelet Volume 10.7 9.4 - 12.3 fL [facility] Neutrophils Percent Auto 74.4(H) 45 - 73 % [facility] Imm Gran Pct Auto 0.5(H) 0.0 - 0.4 % [facility] Lymphocytes Percent Auto 14.1(L) 20 - 40 % [facility] Monocytes Percent Auto 8.8 2 - 11 % [facility] Eosinophils Percent Auto 1.5 0 - 4 % [facility] Basophils Percent Auto 0.7 0 - 2 % [facility] NRBC Pct Auto 0.0 0.0 - 0.2 /100WBC [facility] Neutrophils Absolute Auto 4.1 2.0 - 8.3 x10*3/uL [facility] Imm Gran Abs Auto 0.03 0.00 - 0.03 X10*3/uL [facility] Lymphocytes Absolute Auto 0.8(L) 1.2 - 4.9 X10*3/uL [facility] Monocytes Absolute Auto 0.5 0.1 - 1.2 X10*3/uL [facility] Eosinophils Absolute Auto 0.1 0.0 - 0.4 X10*3/uL [facility] Basophils Absolute Auto 0.0 0.0 - 0.2 X10*3/uL [facility] NRBC Abs Auto 0.000 0.0 - 0.012 X10*3/uL [facility] 07/30/2024 8:36 AM EDT 07/30/2024 11:08 AM EDT us Generic External Data Provider LAB BLOOD ORDERAB LES Final Result [facility] [address] [place] [phone] * BI Mammogram Screening Tomosynthesis Right (05/22/2024 11:50 AM EST) Anatomical Region Laterality Modality Breast Right Mammography 05/22/2024 11:5 0 AM EST Narrative 05/22/2024 12:32 PM EST ? [facility] ? [address] ?[place] [address] ? Mammography Report ? Signed ? Patient: Juliano,Cathia ?MR#: [id number] ?? [id number] ? : 1985 ?Acct:[id number] ? Age/Sex: 39 / F ?ADM Date: 05/22/24 ? Loc: HO.MAMMO ? Attending Dr: Jan Donald MD ? Ordering Physician: Jan Donald MD ?Results: 1Nega ?? tive ? Date of Service: 05/22/24 ?Follow Up: 1 Year From Orig ?? inal Mammogram ? Procedure(s): MM tomosynthesis screening RT ?? Accession Number(s): [id number] ? cc: Jan Donald MD; Naa Leigh [...] DD/ 1150 ? TD/TT: 05/22/24 1220 ? Casing In Line Feeder: ? Procedure Note Donnorabeninterpreter, Image - 05/22/2024 Delroy [facility] [address] [place] [address] Mammography Report Signed Patient: Paddy Henao#: [id number] : 1985Acct:[id number] Age/Sex: 39 / FADM Date: 05/22/24 Loc: HO.MAMMO Attending Dr: Jan Donald MD Ordering Physician: Jan Donaldesults: 1Nega tive Date of Service: 05/22/24Follow Up: 1 Year From Orig inal Mammogram Procedure(s): MM tomosynthesis screening RT Accession Number(s): [id number] cc: Jan Donald MD; Naa Leigh MD [...] by: Sabrina Neville DO 05/22/2024 12:29 PM [facility] Dictated By: Sabrina Neville DO Signed By: <Electronically signed by Sabrina Neville DO in OV> 05/22/24 1229 DD/ 1150 TD/TT: 05/22/24 1220 Casing In Line Feeder: [facility] External Provider IMG BI PROCEDURES Final Result * Hepatitis Panel, General (10/20/2023 11:24 AM EDT) Hepatitis A IgM Nonreactive Nonreactive [facility] Comment:IgM antibodies to GILMORE V not detected; does not exclude earlyacute or recovered HAV infection. ~Hepatitis B Surface Antibody REACTIVE Nonreactive [facility] Comment:REACTIVE: > 11.99 mI U/mL Hepatitis B Core Antibody Nonreactive Nonreactive [facility] Hepatitis C Antibody Nonreactive Nonreactive [facility] Comment:Antibodies to HCV no t detected; does not exclude early acuteHCV infection. Hepatitis B Surface Ag Negative Negative [facility] 10/20/2023 11:2 4 AM EDT 10/20/2023 11:24 AM EDT Generic External Data Provider LAB BLOOD ORDERAB LES Final Result [facility] [address] [place] [phone] * (ABNORMAL) Lipid Panel, Standard (10/20/2023 11:24 AM EDT) Triglycerides 306(H) <150 mg/dL [facility] Comment:Desirable Triglyceri de: less than 150 mg/dLBorderline High Triglyceride 150-199 mg/dLHigh Triglyceride: 200-499 mg/dLVery High Triglyceride: greater than or equal to 5OO mg/dL Cholesterol 263(H) <200 mg/dL [facility] Comment:Desirable Cholestero l: less than 200 mg/dLBorderline High Cholesterol: 200-239 mg/dLHigh Cholesterol: greater than 239 mg/dL LDL Cholesterol Calculated 148(H) <100 mg/dL [facility] Comment:Desirable LDL: less than 100 mg/dLNear Optimal/Above Optimal LDL: 110- 129 mg/dLBorderline High LDL: 130-159 mg/dLHigh LDL: 160-189 mg/dLVery High LDL: greater than or equal to 190 mg/dL HDL Cholesterol 54 >40 mg/dL [facility] Comment:Desirable HDL: great er than 40 mg/dL Note: This HDL assay may give artificially low results in patients with liver disease. Blood Venous blood specimen / Unknown 10/20/2023 11:24 AM EDT 10/20/2023 11:24 AM EDT Naa Roberts MD LAB BLOOD ORDERAB LES Final Result [facility] [address] [place] [phone] * HPV mRNA E6/E7 w/Reflex to HPV Genotypes 16, 18/45 (08/08/2023 9:33 AM EDT) HPV nRNA E6/E7 Not Detected Not Detected [facility] Comment:Methodology: Transcr iption-Mediated AmplificationThis assay detects E6/E7 viral messenger RNA (mRNA) from 14high-risk HPV types (16,18,31,33,35,39,45,51,52,56,58,59,66,68).Cervical sources are required for HPV testing.If a vaginal source from a patient who has had atotal hysterectomy with removal of cervix wassubmitted, please contact the testing laboratoryfor alternative testing options.For additional information, please refer tohttp://education.DropMat/faq/YSZ267r9(This link if provided for information/educational purposes only.)THIS TEST WAS PERFORMED AT:[employer] [place] [phone] HORNE MD HPV mRNA E6/E7 [facility] HPV 16 RNA [facility] HPV 18/45 RNA [facility] 08/08/2023 9:33 AM EDT 08/09/2023 8:45 AM EDT Kerwin Love [facility] CYTOLOGY ORDERABLES F inal Result [facility] [address] [place] [phone] * Pap Smear (08/08/2023 9:33 AM EDT) Swab Cervix uteri structure / Unknown 08/08/2023 9:33 AM EDT 08/09/2023 8:45 AM EDT Narrative [facility] - 08/23/2023 12:57 PM EDT ----- ------- Name: Yoandy Henao ?Age/Sex: 38/F ? : 1985 Unit#: [id number] ?? Attend Dr: KERWIN LOVE CNM ?Re08/08/23 ?Status: DEP REF ? Location: HO.LNP ?Disch: ? ----- ------- SPEC : [id number] ? RECD: 08/09/2345 ? STATUS: ??SOUT ? REQ NUM: [id number] ? SELENA: 08/08/2333 ? SUBM DR: KERWIN LOVE CNM ? [...] 66, 68) ? HPV testing performed by [facility], [place], [place]. ??See reference laboratory ?? portion of the EMR for entire report. ?Clinical Information LMP: Unknown date Previous PAP test: 06/2018, WNL ? Material Received ?? ThinPrep-Cervical ----- ------- Signed (signature on file) Janis Joffre 08/23/23 1257 ? ----- ------- ? END OF REPORT ? us Kerwin Love [facility] CYTOLOGY ORDERABLES F inal Result [facility] [address] [place] [phone] * HIV-1/2 Antigen and Antibodies, Fourth Generation, with Reflexes (09/08/2022 8:29 AM EDT) HIV Antigen/Antibody, 4th Generation NON-REAC TIVE NON-REAC TIVE [facility] Comment: HIV-1 antigen and HIV-1/HIV-2 antibodies [...] ?? For additional information please refer to http://education.DropMat/faq/ARQ635 (This link is being provided for informational/ educational purposes only.) The performance of this assay has not been clinically validated in patients less than 2 years old. Blood Venous blood specimen / Unknown 09/08/2022 8:29 AM EDT 09/08/2022 8:30 AM EDT Narrative [facility] - 09/10/2022 3:43 PM EDT FASTING:YES FASTING: YES Naa Roberts MD LAB BLOOD ORDERAB LES Final Result [facility] [address], [place] [phone] [facility] [address] [place] [phone] from Last 3 Months or Most Recently Relevant to Health Maintenance Insurance [facility] Care Teams Structural Layout Worker Relationship Specialty Start Date End Date Naa Leigh MD [address] [place] [phone] PCP - General Internal Medicine 08/04/22 [facility] 01/19/24
--- OUTSIDE RECORDS SUMMARY | 2024-08-06 10:53 | XMS_ITS | Encounter Summary ---
Author Organization [employer] Address [address] [facility] 7t [place] [address] Care Team Providers Care Steward/Stewardess Wine Name Role Phone Naa Leigh MD Primary Care Pro vider Encounter Details Date Type Department Care Team ([facility] st Contact Info) Description 08/03/2024 Orders Only [facility] [address] [place], [place] [phone] Naa Leigh MD [address] [place] [address] Social History Tobacco Use Types Packs/Day Years [...] your housing situation today? I have marleny sing 12/13/[address] you li [...] AM EDT documented as of this encounter Progress Notes * Naa Roberts MD - 08/03/2024 4:14 PM EDT Pt brought lab results done w her GI on 07/30/2024 -AST 57,ALT 80, total ch 224 LDL 139,HDL 72 Noted some increase in LFTs possibly can be associated with alcohol intake rec to decrease which also can be affecting her lipid elevation.pt had abd Us done before so no need to repeat -pt will continue to follow w her GI for liver elevation and I advised diet and exercise and decrease ETOH ,will repeat labs at annual exam in 3 mo , if needed then can consider omega 3 if lipid still elevated documented in this encounter Plan of Treatment Upcoming Encounters Date Type Department Care Team (Late st Contact Info) Description 08/07/2024 9:00 AM EDT Office Visit [facility] [address] [place] [address] CNM [address] [place] [address] 10/25/2024 9:00 AM EDT Office Visit [facility] [address] [place] [address] Naa Leigh MD [address] [place] [address] documented as of this encounter Visit Diagnoses Not on filedocumented in this encounter Additional Health Concerns Assessment Noted Time PHQ-9 Depression Total Score: 9 07/12/19 25 12:22 PM EDT documented as of this encounter Care Teams Steward/Stewardess Wine Relationship Specialty Start Date End Date Naa Leigh MD [address] [place] [address] PCP - General Internal Medicine 08/04/22 [facility] 01/19/24 documented as of this encounter
== END 2024-08-06 11:12 | disposition home or self-care (01) ==
LOC: HO.HGI 10:21
PROVIDERS: PCP Student in an Organized Health Care Education/Training Program; Visit Provider Nurse Practitioner Family
DX: R74.01 Elevation of levels of liver transaminase levels (principal); D64.9 Anemia, unspecified; K52.9 Noninfective gastroenteritis and colitis, unspecified; K59.01 Slow transit constipation
CPT/HCPCS: 99213

== ENCOUNTER → 2024-08-06 10:21 | Outpatient (BNVA) | payer MEDICAID, SELFPAY | PROVIDERS: PCP Student in an Organized Health Care Education/Training Program; Visit Provider Nurse Practitioner Family | DX: K59.01 Slow transit constipation (principal); R74.01 Elevation of levels of liver transaminase levels; D64.9 Anemia, unspecified; K52.9 Noninfective gastroenteritis and colitis, unspecified; K76.0 Fatty (change of) liver, not elsewhere classified; R79.89 Other specified abnormal findings of blood chemistry | CPT/HCPCS: 99212 ==

== ENCOUNTER 2024-08-08 10:02 | Outpatient (REF) | payer MEDICAID, SELFPAY ==
--- OUTSIDE RECORDS SUMMARY | 2024-08-08 10:57 | XMS_ITS | Encounter Summary ---
Author Organization [employer] Address [address] [facility] [address]t [place] [address] Care Team Providers Care Feeder Operator Name Role Phone Naa Leigh MD Primary Care Pro vider Encounter Details Date Type Department Care Team ([facility] st Contact Info) Description 08/03/2024 Orders Only [facility] [address] [place], [place] [phone] Naa Leigh MD [address] [place] [address] Social History Tobacco Use Types Packs/Day Years [...] Care Team (Late st Contact Info) Description 10/25/2024 9:00 AM EDT Office Visit [facility] [address] [place] [address] Naa Leigh MD [address] [place] [address] documented as of this encounter Visit Diagnoses Not on filedocumented in this encounter Additional Health Concerns Assessment Noted Time PHQ-9 Depression Total Score: 9 07/12/19 25 12:22 PM EDT documented as of this encounter Care Teams Feeder Operator Relationship Specialty Start Date End Date Naa Leigh MD [address] [place] [phone] PCP - General Internal Medicine 08/04/22 [facility] 01/19/24 documented as of this encounter
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
--- OUTSIDE RECORDS SUMMARY | 2024-08-08 10:58 | XMS_ITS | Encounter Summary ---
Author Organization [employer] Address [address] [place] [address] Care Team Providers Care Professional Organizer Name Role Phone Naa Leigh MD Primary Care Pro vider Reason for Visit * Reason On[place] Date Comments Med Refill 10/02/2022 Encounter Details Date Type Department Care Team ([facility] st Contact Info) Description 10/02/2022 Refill [facility] [address] [place], [place] [phone] Naa Leigh MD [address] [place] [address] Social History Tobacco Use Types Packs/Day Years [...] Description 10/25/2024 9:00 AM EDT Office Visit [facility] [address] [place], [place] [phone] Naa Leigh MD [address] [place] [address] documented as of this encounter Visit Diagnoses Not on filedocumented in this encounter Additional Health Concerns Assessment Noted Time PHQ-9 Depression Total Score: 5 09/16/19 23 9:07 AM EDT documented as of this encounter Care Teams Professional Organizer Relationship Specialty Start Date End Date Naa Leigh MD [address] [place], [place] [phone] PCP - General Internal Medicine 08/04/22 [facility] 01/19/24 documented as of this encounter
--- OUTSIDE RECORDS SUMMARY | 2024-08-08 10:58 | XMS_ITS | Patient Health Record ---
Author Organization [facility] Address [address] [place] [address] Care Team Providers Care Paper Goods Machine Operator Name Role Phone ChandrakantTamrad Primary Care Provider [phone] ALLERGIES No Known Allergies REASON FOR REFERRAL [...] Answer Notes Are you a: never smoker sf 2017 PROBLEMS Problem Type ICD Code Onset Dates Problem Status W/U Status Risk SNOMED Code Notes Problem Hyperlipidemia, unspecified (E78.5) Active confirmed Problem Other mixed anxiety disorders (F41.3) Active confirmed Anxiety disorde r (960683370) Problem Essential (primary) hypertension (I10) Active confirmed Essential hypertension (95844153) PLAN OF TREATMENT Pending Test Test Name Order Date KATE ROUTINE* 01/19/2021 VENIPUNCT, ROUTINE* 04/27/2021 COMPREHENSIVE METABOLIC PANEL 01/19/2021 CBC (INCLUDES DIFF/PLT) 01/19/2021 LIPID PANEL 01/19/2021 TSH, 3RD GENERATION 01/19/2021 Insurance Providers Payer Name Payer Address Payer Phone Subscriber Number Group Number Insured Name Patient Relationship to Insured Coverage Start Date Coverage End Date ZULEIKA De [place] [id number] [place] [address] [id number] Yoandy Henao Self - patient is the insured MEDICAL (GENERAL) HISTORY Medical History History ICD Code Impaired Fasting fasting Glucose Hyperlipidemia Herniated Cervical and Lumbar Disk Follo wing - 2017 Perrineal allergy Insomnia Cat, Mold , Dairy , Cockroach and Dust M ites Surgical History Surgery Date(Month/Year)
--- OUTSIDE RECORDS SUMMARY | 2024-08-08 10:58 | XMS_ITS | Encounter Summary ---
Author Organization [employer] Address [address] [facility] [address] [facility] [place] [address] Care Team Providers Care Structural Architect Name Role Phone Naa Leigh MD Primary Care Pro vider Reason for Visit * Reason Comments Med Change Request Encounter Details Date Type Department Care Team ([facility] st Contact Info) Description 02/24/2024 Refill [facility] [address] [place], [place] [phone] Naa Leigh MD [address] [place], [place] [phone] Social History Tobacco Use Types Packs/Day Years [...] Description 10/25/2024 9:00 AM EDT Office Visit [facility] [address] [place] [address] Naa Leigh MD [address] [place] [address] documented as of this encounter Visit Diagnoses Not on filedocumented in this encounter Additional Health Concerns Assessment Noted Time PHQ-9 Depression Total Score: 5 09/16/19 23 9:07 AM EDT documented as of this encounter Care Teams Structural Architect Relationship Specialty Start Date End Date Naa Leigh MD [address] [place] [address] PCP - General Internal Medicine 08/04/22 [facility] 01/19/24 documented as of this encounter
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
--- OUTSIDE RECORDS SUMMARY | 2024-08-08 10:58 | XMS_ITS | Encounter Summary ---
Author Organization [employer] Address [address] [facility] 7[address] [place] [address] Care Team Providers Care Health Coach Name Role Phone Naa Leigh MD Primary Care Pro vider Encounter Details Date Type Department Care Team (Latest Contact Info) Description 08/07/2024 Travel Social History Tobacco Use Types Packs/Day Years [...] Description 10/25/2024 9:00 AM EDT Office Visit [facility] [address] [place] [address] Naa Leigh MD [address] [place] [address] documented as of this encounter Visit Diagnoses Not on filedocumented in this encounter Additional Health Concerns Assessment Noted Time PHQ-9 Depression Total Score: 9 07/12/19 25 12:22 PM EDT documented as of this encounter Care Teams Health Coach Relationship Specialty Start Date End Date Naa Leigh MD [address] [place] [address] PCP - General Internal Medicine 08/04/22 [facility] 01/19/24 documented as of this encounter
--- OUTSIDE RECORDS SUMMARY | 2024-08-08 10:58 | XMS_ITS | Clinical Summary ---
Author Organization [employer] Address [address] [facility] 7t [place] [address] Care Team Providers Care Glass Forming Engineer Name Role Phone Naa Leigh MD Primary Care Pro vider Allergies Active Allergy Reactions Criticality Noted Date Comments Bacid 12/06/2022 Medications loratadine (Claritin) 10 MG tablet TAKE 1 TABLET BY MOUTH EVERY DAY NEEDED FOR ALLERGY 023 Active ketotifen (Zaditor) 0.025 % ophthalmic solution One drop to eyes bid prn allergies 5 mL 3 024 Active Fiber-Lax 625 MG tablet TAKE 1 TABLET BY MOUTH EVERY DAY WITH A FULL GLASS OF WATER 024 Active famotidine (Pepcid) 40 MG tablet Take 40 mg by mouth at bedtime. 024 Active senna (Senokot) 8.6 MG tablet TAKE 2 TABLETS BY MOUTH EVERY DAY AT BEDTIME NEEDED FOR CONSTIPATION Active cyclobenzaprine (Flexeril) 5 MG tablet TAKE 1 TABLET BY MOUTH AT BEDTIME FOR 10 DAYS 10 tablet 025 Active gabapentin (Neurontin) 400 MG capsule Take 1 capsule (400 mg) by mouth at bedtime. 90 capsule 025 2025 Active tamoxifen (Nolvadex) 20 MG chemo tablet Take 1 tablet by mouth Once per day. Active cloNIDine (Catapres) 0.1 MG tablet Take 1 tablet (0.1 mg) by mouth Once per day. Take at bedtime 30 tablet 1 025 Active ondansetron ODT (Zofran-ODT) 8 MG disintegrating tablet DISSOLVE 1 TABLET ON tonuge EVERY 8 HOURS 024 2024 Discontinued(O ther) desonide (DesOwen) 0.05 % cream APPLY 1 GRAM TOPICALLY THREE TIMES DAILY 024 2024 Discontinued(O ther) escitalopram (Lexapro) 5 MG tablet Take 1 tablet (5 mg) by mouth Once per day. 30 tablet 2 024 2024 Discontinued(O ther) cloNIDine (Catapres) 0.1 MG tablet Take 1 tablet (0.1 mg) by mouth Once per day. Take at bedtime 30 tablet 1 025 2024 Discontinued Active Problems Problem Noted [...] record-already requested by pt---From records reviewed from [facility]-pt had pap smear in 2019 -reported as neg w neg HPV and rec to repeat test in 5 years -aprox 2023 -contraception: continue progestin pill daily-tolerating well ( -reports hx of SE w estrogen pills,IUD, inj) -vaccines:s/p MMRx3, hep A x2, hep Bx3--immune now, tdap 2019, HPV x 3 w her [facility] per pt,COVID 19 x2-advised today again x Bivalent dose but refusing Assessment & Plan (09/15/2022 1:59 PM EDT): -PPD neg per pt -pap smear: 2019 neg per pt --pd to get record-already requested by pt---From records reviewed from [facility]-pt had pap smear in 2018 -reported as neg w neg HPV and rec to repeat test in 5 years -aprox 2023 -contraception: continue progestin pill daily-tolerating well ( -reports hx of SE w estrogen pills,IUD, inj) -vaccines:s/p MMRx3, hep A x2, hep Bx3--immune now, tdap 2018, HPV x 3 w her [facility] per pt,COVID 19 x2-advised today x Bivalent dose but refusing Assessment & Plan (08/05/2022 12:36 PM EDT): From records reviewed from [facility]-pt had pap smear in 2018 -reported as [...] tdap 2018, HPV x 3 w her [facility] per pt,COVID 19 x2-advised today x Bivalent dose. Overweight (BMI 25.0-29.9) 08/04/2022 Assessment & Plan (11/10/2022 9:15 AM EDT): Advised pt to improve diet and exercise,discussed healthy life style 07/2022 Total ch 211, LDL 128,Fasting gl 106 w normal hb1AC, AST wnl,ALT 31- slight elevated -will monitor weight -already started care w edge bander operator -repeat fasting lipids in 1 y and fasting chem in 6 mo from last labs -aprox 01/2023 Assessment & Plan (09/15/2022 1:59 PM EDT): Advised pt to improve diet and exercise,discussed healthy life style 07/2022 Total ch 211, LDL 128,Fasting gl 106 w normal hb1AC, AST wnl,ALT 31- slight elevated -will monitor weight -referred today to edge bander operator -repeat fasting lipids in 1 y and [...] but stopped ,reports panic attack hx in 2015 none x several years -will start duloxetine [...] Encounters Date Type Department Care Team Description 08/07/2024 9:00 AM EDT Office Visit [address] [address] Kerwin Love CNM Amenorrhea (Primary Dx); Visit for pelvic exam; Perimenopausal vasomotor symptoms 08/07/2024 Travel 08/03/2024 Orders Only [address] [address] Naa Leigh MD 07/30/2024 Orders Only GENERIC EXTERNAL DATA DEPARTMENT Provider, Generic External Data 07/11/2024 9:00 AM EDT Office Visit [address] [address] Naa Leigh MD Cyst of right ovary (Primary Dx); Dietary counseling; Exercise counseling; Malignant neoplasm of left breast in female, estrogen receptor positive, unspecified site of breast (CMS/HCC); Hypertension, unspecified type; Anxiety; Cyst in neck at ; Health care maintenance; Transaminitis; Lesion of ovary; Adrenal nodule (CMS/HCC) 07/11/2024 Travel 07/10/2024 Travel 07/04/2024 Patient Outreach [facility] [address] [place] [address] Naa Leigh MD Pre-visit Planning ([facility] unable to reach [facility]) 07/03/2024 Orders Only [facility] [address] [place] [address], [place] [address] Naa Leigh MD 07/02/2024 Telephone [facility] [address] [place] [address] Naa Leigh MD chart prep 06/08/2024 Population Health Risk Score [facility] ([facility] Department [address] [place] [phone] Provider, Population Health Generic 06/01/2024 Travel 05/22/2024 Orders Only [facility] External Provider, [facility] 05/11/2024 Refill [facility] [address] [place] [address] Naa Leigh MD from Last 3 Months Immunizations Immunization Administration Dates Next Due DTP 04/23/1988,02/04/1987,06/29/1985 ,1984 [...] Not Answered Alcohol Use Standard Drinks/Week Comments Not Currently [...] Mass Index 28.83 08/07/2024 9:04 AM EDT Plan of Treatment Upcoming Encounters Date Type Department Care Team (Late st Contact Info) Description 10/25/2024 9:00 AM EDT Office Visit [facility] [address] [place] [address] Naa Leigh MD [address] [place], [place] [phone] Health Maintenance Due Date Last Done Comments Alcohol/Substance Use Screening 1996 Family Planning (PISQ) 1999 Influenza Vaccine (#1) 2023 03/12/2019 SDOH Screening 12/12/2024 12/13/2023 Mammogram 05/22/2025 05/22/2024, 08/0 09/2023, 11/02/2023, Additional history exists Depression Screening 07/11/2025 07/11/2024, 07/12/19 25 Tobacco Screening 08/07/2025 08/07/2024 Cervical Cancer Screening 08/07/2028 HPV/Cotest 08/07/2028 08/08/2023 [...] patient's age to complete this topic Meningococcal B Vaccine Aged Out No l onger eligible based on patient's age to complete [...] Blood Count 5.5 4.8 - 10.8 X10*3/uL [facility] Red Blood Count 4.34 4.20 - 5.50 X10*6/uL [facility] Hemoglobin 13.1 12.0 - 16.0 g/dl [facility] Hematocrit 40.1 37.0 - 47.0 % [facility] Mean Corpuscular Volume 92.4 80.0 - 98.0 fL [facility] Mean Corpuscular Hemoglobin 30.2 27.0 - 33.0 pg [facility] Mean Corpuscular HGB Conc 32.7 31.0 - 35.0 g/dl [facility] Red Cell Distribution Width 12.6 11.0 - 16.0 % [facility] Platelet Count 181 160 - 400 X10*3/uL [facility] Mean Platelet Volume 10.7 9.4 - 12.3 fL [facility] Neutrophils Percent Auto 74.4(H) 45 - 73 % [facility] Imm Gran Pct Auto 0.5(H) 0.0 - 0.4 % [facility] Lymphocytes Percent Auto 14.1(L) 20 - 40 % [facility] Monocytes Percent Auto 8.8 2 - 11 % [facility] Eosinophils Percent Auto 1.5 0 - 4 % [facility] Basophils Percent Auto 0.7 0 - 2 % [facility] NRBC Pct Auto 0.0 0.0 - 0.2 /100WBC [facility] Neutrophils Absolute Auto 4.1 2.0 - 8.3 x10*3/uL [facility] Imm Gran Abs Auto 0.03 0.00 - 0.03 X10*3/uL [facility] Lymphocytes Absolute Auto 0.8(L) 1.2 - 4.9 X10*3/uL [facility] Monocytes Absolute Auto 0.5 0.1 - 1.2 X10*3/uL [facility] Eosinophils Absolute Auto 0.1 0.0 - 0.4 X10*3/uL [facility] Basophils Absolute Auto 0.0 0.0 - 0.2 X10*3/uL [facility] NRBC Abs Auto 0.000 0.0 - 0.012 X10*3/uL [facility] 07/30/2024 8:36 AM EDT 07/30/2024 11:08 AM EDT us Generic External Data Provider LAB BLOOD ORDERAB LES Final Result [facility] [address] [place] [phone] * BI Mammogram Screening Tomosynthesis Right (05/22/2024 11:50 AM EST) Anatomical Region Laterality Modality Breast Right Mammography 05/22/2024 11:5 0 AM EST Narrative 05/22/2024 12:32 PM EST ? [facility] ? [address] ?[place] [address] ? Mammography Report ? Signed ? Patient: Juliano,Cathia ?MR#: [id number] ?? 177 ? : 1985 ?Acct:[id number] ? Age/Sex: 39 / F ?ADM Date: 05/22/24 ? Loc: HO.MAMMO ? Attending Dr: Jan Donald MD ? Ordering Physician: Jan Donald MD ?Results: 1Nega ?? tive ? Date of Service: 05/22/24 ?Follow Up: 1 Year From Orig ?? inal Mammogram ? Procedure(s): MM tomosynthesis screening RT ?? Accession Number(s): [id number] ? cc: Jan Donald MD; Naa Leigh [...] DD/ 1150 ? TD/TT: 05/22/24 1220 ? Product Marketing Manager: ? Procedure Note Mitul, Image - 05/22/2024 [facility] [address] [place] [address] [place] [address] Mammography Report Signed Patient: Yoandy HenaoMR#: [id number] 177 : 1985Acct:[id number] Age/Sex: 39 / FADM Date: 05/22/24 Loc: NADYA Attending Dr: Jan Donald MD Ordering Physician: Jan Donaldults: 1Nega tive Date of Service: 05/22/24Follow Up: 1 Year From Orig inal Mammogram Procedure(s): MM tomosynthesis screening RT Accession Number(s): [id number] cc: Jan Donald MD; Naa Leigh MD [...] by: Sabrina Neville DO 05/22/2024 12:29 PM [facility] Dictated By: Sabrina Neville DO Signed By: <Electronically signed by Sabrina Neville DO in OV> 05/22/24 1229 DD/ 1150 TD/TT: 05/22/24 1220 Product Marketing Manager: [facility] External Provider IMG BI PROCEDURES Final Result * Hepatitis Panel, General (10/20/2023 11:24 AM EDT) Hepatitis A IgM Nonreactive Nonreactive [facility] Comment:IgM antibodies to GILMORE V not detected; does not exclude earlyacute or recovered HAV infection. ~Hepatitis B Surface Antibody REACTIVE Nonreactive [facility] Comment:REACTIVE: > 11.99 mI U/mL Hepatitis B Core Antibody Nonreactive Nonreactive [facility] Hepatitis C Antibody Nonreactive Nonreactive [facility] Comment:Antibodies to HCV no t detected; does not exclude early acuteHCV infection. Hepatitis B Surface Ag Negative Negative [facility] 10/20/2023 11:2 4 AM EDT 10/20/2023 11:24 AM EDT us Generic External Data Provider LAB BLOOD ORDERAB LES Final Result Performing Organization Address [facility]/ZIP Co de Phone Number [facility] [address] [place] [address] [phone] * (ABNORMAL) Lipid Panel, Standard (10/20/2023 11:24 AM EDT) Triglycerides 306(H) <150 mg/dL [facility] Comment:Desirable Triglyceri de: less than 150 mg/dLBorderline High Triglyceride 150-199 mg/dLHigh Triglyceride: 200-499 mg/dLVery High Triglyceride: greater than or equal to 5OO mg/dL Cholesterol 263(H) <200 mg/dL [facility] Comment:Desirable Cholestero l: less than 200 mg/dLBorderline High Cholesterol: 200-239 mg/dLHigh Cholesterol: greater than 239 mg/dL LDL Cholesterol Calculated 148(H) <100 mg/dL [facility] Comment:Desirable LDL: less than 100 mg/dLNear Optimal/Above Optimal LDL: 110- 129 mg/dLBorderline High LDL: 130-159 mg/dLHigh LDL: 160-189 mg/dLVery High LDL: greater than or equal to 190 mg/dL HDL Cholesterol 54 >40 mg/dL [facility] Comment:Desirable HDL: great er than 40 mg/dL Note: This HDL assay may give artificially low results in patients with liver disease. Blood Venous blood specimen / Unknown 10/20/2023 11:24 AM EDT 10/20/2023 11:24 AM EDT us Naa Roberts MD LAB BLOOD ORDERAB LES Final Result Performing Organization Address City/[facility]/ZIP Co de Phone Number [facility] [address] [place] [address] [phone] * HPV mRNA E6/E7 w/Reflex to HPV Genotypes 16, 18/45 (08/08/2023 9:33 AM EDT) HPV nRNA E6/E7 Not Detected Not Detected [facility] Comment:Methodology: Transcr iption-Mediated AmplificationThis assay detects E6/E7 viral messenger RNA (mRNA) from 14high-risk HPV types (16,18,31,33,35,39,45,51,52,56,58,59,66,68).Cervical sources are required for HPV testing.If a vaginal source from a patient who has had atotal hysterectomy with removal of cervix wassubmitted, please contact the testing laboratoryfor alternative testing options.For additional information, please refer tohttp://education.[employer]/faq/TLD619r3(This link if provided for information/educational purposes only.)THIS TEST WAS PERFORMED AT:[facility] [place] [phone] HORNE MD HPV mRNA E6/E7 [facility] HPV 16 RNA [facility] HPV 18/45 RNA [facility] 08/08/2023 9:33 AM EDT 08/09/2023 8:45 AM EDT Kerwin Love [facility] CYTOLOGY ORDERABLES F inal Result [facility] [address] [place] [phone] * Pap Smear (08/08/2023 9:33 AM EDT) Swab Cervix uteri structure / Unknown 08/08/2023 9:33 AM EDT 08/09/2023 8:45 AM EDT Narrative [facility] - 08/23/2023 12:57 PM EDT ----- ------- Name: Yoandy Henao ?Age/Sex: 38/F ? : 1985 Unit#: [id number] ?? Attend Dr: KERWIN LOVE CNM ?Re08/08/23 ?Status: DEP REF ? Location: HO.LNP ?Disch: ? ----- ------- SPEC : [id number] ? RECD: 08/09/23 ? STATUS: ??SOUT ? REQ NUM: [id number] ? SELENA: 08/08/23 ? SUBM DR: KERWIN LOVE CNM ? ENTERED: ??08/09/23 ?SP TYPE: Pap Smr ?OTHR : ? [...] 66, 68) ? HPV testing performed by [facility], [place], [place]. ??See reference laboratory ?? portion of the EMR for entire report. ?Clinical Information LMP: Unknown date Previous PAP test: 06/2018, WNL ? Material Received ?? ThinPrep-Cervical ----- ------- Signed (signature on file) Janis [place] 08/23/23 1257 ? ----- ------- ? END OF REPORT ? us Kerwin Love [facility] CYTOLOGY ORDERABLES F inal Result Performing Organization Address City/[facility]/ZIP Co de Phone Number [facility] [address] [place] [phone] [phone] * HIV-1/2 Antigen and Antibodies, Fourth Generation, with Reflexes (09/08/2022 8:29 AM EDT) Pathologist [facility] HIV Antigen/Antibody, 4th Generation NON-REAC TIVE NON-REAC TIVE [facility] [place] [employer] [facility] Comment: HIV-1 antigen and HIV-1/HIV-2 antibodies [...] ?? For additional information please refer to http://education.[employer]/faq/YPF787 (This link is being provided for informational/ educational purposes only.) The performance of this assay has not been clinically validated in patients less than 2 years old. Blood Venous blood specimen / Unknown 09/08/2022 8:29 AM EDT 09/08/2022 8:30 AM EDT Narrative [facility] - 09/10/2022 3:43 PM EDT FASTING:YES FASTING: YES us Naa Roberts MD LAB BLOOD ORDERAB LES Final Result [facility] [address], [place] [address] [facility] [place] [facility] [address] [place] [address] from Last 3 Months or Most Recently Relevant to Health Maintenance Insurance [facility] STANDARD Care Teams Glass Forming Engineer Relationship Specialty Start Date End Date Naa Leigh MD [address] [place] [phone] PCP - General Internal Medicine 08/04/22 [facility] 01/19/24
--- OUTSIDE RECORDS SUMMARY | 2024-08-08 10:58 | XMS_ITS | Encounter Summary ---
Author Organization [employer] Address [address] [facility] [address] [place] [address] Care Team Providers Care Backup Operator Name Role Phone Naa Leigh MD Primary Care Pro vider Reason for Visit * Reason Comments Med Refill Encounter Details Date Type Department Care Team (Late st Contact Info) Description 08/05/2023 Refill [facility] [address] [place], [place] [phone] Naa Leigh MD [address] [place], [place] [phone] Social History Tobacco Use Types Packs/Day Years [...] Description 10/25/2024 9:00 AM EDT Office Visit [facility] [address] [place] [address] Naa Leigh MD [address] [place] [address] documented as of this encounter Visit Diagnoses Not on filedocumented in this encounter Additional Health Concerns Assessment Noted Time PHQ-9 Depression Total Score: 5 09/16/19 9:07 AM EDT documented as of this encounter Care Teams Backup Operator Relationship Specialty Start Date End Date Naa Leigh MD [address] [place] [phone] PCP - General Internal Medicine 08/04/22 [facility] 01/19/24 documented as of this encounter
[2024-08-08 11:47] LABS: TSH reflex Free T4 1.89 uIU/mL (0.32-4.0)
[2024-08-09 06:28] LABS: Follicle Stimulating Hormone 27.2 mIU/mL; Prolactin 5.3 ng/mL
== END 2024-08-08 10:03 | disposition home or self-care (01) ==
LOC: HO.HHCL 10:02
PROVIDERS: Visit Provider Advanced Practice Midwife
DX: N91.2 Amenorrhea, unspecified (principal)
CPT/HCPCS: 36415; 82670; 83001; 84146; 84443

== ENCOUNTER 2024-08-13 15:48 | Outpatient (REF) | payer MEDICAID, SELFPAY ==
--- NOTE | ~2024-08-13 | US_ITS ---
EXAMINATION: US PELVIS TRANSABDOMINAL AND TRANSVAGINAL HISTORY: unspecified cyst, right side COMPARISON: Correlation is made with a CT of the pelvis with contrast dated 02/03/2024. TECHNIQUE: Transabdominal and endovaginal real-time 2D bae-scale ultrasound was performed. FINDINGS: Uterus: The uterus is normal in size, measuring 6.5 x 1.9 x 3.3 cm. Myometrium has a normal echotexture. No fibroids are identified. Endometrium: The endometrial stripe measures 2 mm in thickness. There is trace fluid in the cervix. Right ovary: The right ovary measures 3.0 x 1.1 x 1.7 cm. The right ovary is normal in size and echotexture. There are punctate calcifications in the ovary. Left ovary: The left ovary measures 2.8 x 1.6 x 1.8 cm. The left ovary is normal in size and echotexture. There are punctate calcifications in the ovary. Pelvic fluid: none. US/US pelvic and transvaginal IMPRESSION: Unremarkable pelvic ultrasound. Electronically signed by: Vic Goyal MD 08/14/2024 07:00 AM EDT
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
--- OUTSIDE RECORDS SUMMARY | 2024-08-13 15:50 | XMS_ITS | Encounter Summary ---
Author Organization [employer] Address 75 [facility] 7 [place] [address] Care Team Providers Care Installer Technician Name Role Phone Naa Leigh MD Primary Care Pro vider Encounter Details Date Type Department Care Team ([facility] st Contact Info) Description 08/08/2024 Orders Only [facility] [address] [place], [place] [phone] Naa Leigh MD [address] [place], [place] [phone] Social History Tobacco Use Types Packs/Day Years [...] Description 10/25/2024 9:00 AM EDT Office Visit [facility] [address] [place] [address] Naa Leigh MD [address] [place] [address] documented as of this encounter Visit Diagnoses Not on filedocumented in this encounter Additional Health Concerns Assessment Noted Time PHQ-9 Depression Total Score: 9 07/12/19 25 12:22 PM EDT documented as of this encounter Care Teams Installer Technician Relationship Specialty Start Date End Date Naa Leigh MD [address] [place] [phone] PCP - General Internal Medicine 08/04/22 [facility] 01/19/24 documented as of this encounter
--- OUTSIDE RECORDS SUMMARY | 2024-08-13 15:50 | XMS_ITS | Encounter Summary ---
Author Organization [employer] Address 75 [facility] [place], [place] [address] Care Team Providers Care Package Worker Name Role Phone Naa Leigh MD Primary Care Pro vider Reason for Visit * Reason Comments Med Change Request Encounter Details Date Type Department Care Team ([facility] st Contact Info) Description 02/24/2024 Refill [facility] [address] [place], [place] [phone] Naa Leigh MD [address] [place], [place] [phone] Social History Tobacco Use Types Packs/Day Years [...] Description 10/25/2024 9:00 AM EDT Office Visit [facility] [address] [place] [phone] Naa Leigh MD [address] [place] [address] documented as of this encounter Visit Diagnoses Not on filedocumented in this encounter Additional Health Concerns Assessment Noted Time PHQ-9 Depression Total Score: 5 09/16/19 23 9:07 AM EDT documented as of this encounter Care Teams Package Worker Relationship Specialty Start Date End Date Naa Leigh MD [address] [place] [address] PCP - General Internal Medicine 08/04/22 [facility] 01/19/24 documented as of this encounter
--- OUTSIDE RECORDS SUMMARY | 2024-08-13 15:50 | XMS_ITS | Patient Health Record ---
Author Organization [facility] Address [address] [place] [address] Care Team Providers Care Commutator Presser Name Role Phone ChandrakantTamrad Primary Care Provider [...] disorders (F41.3) Active confirmed Anxiety disorde r (322038226) Problem Essential (primary) hypertension (I10) Active confirmed Essential hypertension (65060951) PLAN OF TREATMENT Pending Test Test Name Order Date KATE ROUTINE* 01/19/2021 VENIPUNCT, ROUTINE* 04/27/2021 COMPREHENSIVE METABOLIC PANEL 01/19/2021 CBC (INCLUDES DIFF/PLT) 01/19/2021 LIPID PANEL 01/19/2021 TSH, 3RD GENERATION 01/19/2021 Insurance Providers Payer Name Payer Address Payer Phone Subscriber Number Group Number Insured Name Patient Relationship to Insured Coverage Start Date Coverage End Date ZULEIKA De [place] [id number] [place] [address] [id number] Yoandy Henao Self - patient is the insured MEDICAL (GENERAL) HISTORY Medical History History ICD Code Impaired Fasting fasting Glucose Hyperlipidemia Herniated Cervical and Lumbar Disk Follo wing - 2017 Perrineal allergy Insomnia Cat, Mold , Dairy , Cockroach and Dust M ites Surgical History Surgery Date(Month/Year)
--- OUTSIDE RECORDS SUMMARY | 2024-08-13 15:51 | XMS_ITS | Encounter Summary ---
Author Organization [employer] Address [address] [place] [phone] Care Team Providers Care Color Print Inspector Name Role Phone Naa Leigh MD Primary Care Pro vider Reason for Visit * Reason Onset Date Comments Med Refill 10/02/2022 Encounter Details Date Type Department Care Team (Late st Contact Info) Description 10/02/2022 Refill [facility] [address] [place] [address] Naa Leigh MD 230 [place] [address] Social History Tobacco Use Types Packs/Day Years [...] Description 10/25/2024 9:00 AM EDT Office Visit [facility] [address] [place] [address] Naa Leigh MD [address] [place] [address] documented as of this encounter Visit Diagnoses Not on filedocumented in this encounter Additional Health Concerns Assessment Noted Time PHQ-9 Depression Total Score: 5 09/16/19 23 9:07 AM EDT documented as of this encounter Care Teams Color Print Inspector Relationship Specialty Start Date End Date Naa Leigh MD [address] [place] [address] PCP - General Internal Medicine 08/04/22 [facility] 01/19/24 documented as of this encounter
--- OUTSIDE RECORDS SUMMARY | 2024-08-13 15:51 | XMS_ITS | Encounter Summary ---
Author Organization [employer] Address 75 [facility] [address] [address] Care Team Providers Care Fire Sprinkler Apparatus Inspector Name Role Phone Naa Leigh MD Primary Care Pro vider Reason for Visit * Reason Comments Med Refill Encounter Details Date Type Department Care Team ([facility] st Contact Info) Description 08/05/2023 Refill [facility] [address] [place], [place] [phone] Naa Leigh MD 230 [place], [place] [phone] Social History Tobacco Use Types Packs/Day Years [...] 9:00 AM EDT Office Visit [facility] [address] [place] [address] Naa Leigh MD [address] [place] [address] [phone] documented as of this encounter Visit Diagnoses Not on filedocumented in this encounter Additional Health Concerns Assessment Noted Time PHQ-9 Depression Total Score: 5 09/16/19 23 9:07 AM EDT documented as of this encounter Care Teams Fire Sprinkler Apparatus Inspector Relationship Specialty Start Date End Date Naa Leigh MD [address] [place] [address] PCP - General Internal Medicine 08/04/22 [facility] 01/19/24 documented as of this encounter
--- OUTSIDE RECORDS SUMMARY | 2024-08-13 15:51 | XMS_ITS | Clinical Summary ---
Author Organization [employer] Address 75 [facility] 7t [place] [address] Care Team Providers Care Flatwork Finisher Hand Name Role Phone Naa Leigh MD Primary [...] BEDTIME NEEDED FOR CONSTIPATION 09/08/19 24 Active cyclobenzapri ne (Flexeril) 5 MG tablet TAKE 1 TABLET BY MOUTH AT BEDTIME FOR 10 DAYS 10 tablet 05/11/19 25 Active tamoxifen (Nolvadex) 20 MG chemo tablet Take 1 tablet by mouth Once per day. Active cloNIDine (Catapres) 0.1 MG tablet Take 1 tablet (0.1 mg) by mouth Once per day. Take at bedtime 30 tablet 1 08/08/19 25 Active gabapentin (Neurontin) 400 MG capsule Take 1 capsule (400 mg) by mouth at bedtime. 90 capsule 08/09/19 25 026 Active gabapentin (Neurontin) 400 MG capsule Take 1 capsule (400 mg) by mouth at bedtime. 90 capsule 07/04/19 25 025 Discontinued(R eorder (will not trigger notification to Pharmacy)) cloNIDine (Catapres) 0.1 MG tablet Take 1 tablet (0.1 mg) by mouth Once per day. Take at bedtime 30 tablet 1 08/08/19 25 025 Discontinued Active Problems Problem Noted Date Diagnosed [...] record-already requested by pt---From records reviewed from [facility]-pt had pap smear in 2018 -reported as neg w neg HPV and rec to repeat test in 5 years -aprox 2023 -contraception: continue progestin pill daily-tolerating well ( -reports hx of SE w estrogen pills,IUD, inj) -vaccines:s/p MMRx3, hep A x2, hep Bx3--immune now, tdap 2018, HPV x 3 w her [facility] per pt,COVID 19 x2-advised today again x Bivalent dose but refusing Assessment & Plan (09/15/2022 1:59 PM EDT): -PPD neg per pt -pap smear: 2019 neg per pt --pd to get record-already requested by pt---From records reviewed from [facility]-pt had pap smear in 2018 -reported as neg w neg HPV and rec to repeat test in 5 years -aprox 2023 -contraception: continue progestin pill daily-tolerating well ( -reports hx of SE w estrogen pills,IUD, inj) -vaccines:s/p MMRx3, hep A x2, hep Bx3--immune now, tdap 2018, HPV x 3 w her [facility] per pt,COVID 19 x2-advised today x Bivalent dose but refusing Assessment & Plan (08/05/2022 12:36 PM EDT): From records reviewed from [facility]-pt had pap smear in 2018 -reported as [...] tdap 2018, HPV x 3 w her [facility] per pt,COVID 19 x2-advised today x Bivalent dose. Overweight (BMI 25.0-29.9) 08/04/2022 Assessment & Plan (11/10/2022 9:15 AM EDT): Advised pt to improve diet and exercise,discussed healthy life style 07/2022 Total ch 211, LDL 128,Fasting gl 106 w normal hb1AC, AST wnl,ALT 31- slight elevated -will monitor weight -already started care w story writer -repeat fasting lipids in 1 y and fasting chem in 6 mo from last labs -aprox 01/2023 Assessment & Plan (09/15/2022 1:59 PM EDT): Advised pt to improve diet and exercise,discussed healthy life style 07/2022 Total ch 211, LDL 128,Fasting gl 106 w normal hb1AC, AST wnl,ALT 31- slight elevated -will monitor weight -referred today to story writer -repeat fasting lipids in 1 y and [...] Encounters Date Type Department Care Team Description 08/08/2024 Orders Only [address] [address] aNa Leigh MD 08/07/2024 9:00 AM EDT Office Visit [address] [address] Kerwin Love, EMELINA Amenorrhea (Primary Dx); Visit for pelvic exam; Perimenopausal vasomotor symptoms 08/07/2024 Travel 08/03/2024 Orders Only [address] [address] Naa Leigh MD 07/30/2024 Orders Only GENERIC EXTERNAL DATA DEPARTMENT Provider, Generic External Data 07/11/2024 9:00 AM EDT Office Visit [address] [address] Naa Leigh MD Cyst of right ovary (Primary Dx); Dietary counseling; Exercise counseling; Malignant neoplasm of left breast in female, estrogen receptor positive, unspecified site of breast (CMS/HCC); Hypertension, unspecified type; Anxiety; Cyst in neck at ; Health care maintenance; Transaminitis; Lesion of ovary; Adrenal nodule (CMS/HCC) 07/11/2024 Travel 07/10/2024 Travel 07/04/2024 Patient Outreach [facility] [address] [place] [address] Naa Leigh MD Pre-visit Planning ([facility] unable to reach [facility]) 07/03/2024 Orders Only [address] [address] Naa Leigh MD 07/02/2024 Telephone [address] [place] [address] Naa Leigh MD chart prep 06/08/2024 Population Health Risk Score [facility] (C3) Department [address] [place] [phone] Provider, Population Health Generic 06/01/2024 Travel 05/22/2024 Orders Only [facility] External Provider, [facility] from Last 3 Months Immunizations Immunization Administration [...] Description 10/25/2024 9:00 AM EDT Office Visit [facility] [address] [place] [address] Naa Leigh MD [address] [place] [address] Health Maintenance Due Date Last Done Comments Alcohol/Substance Use Screening 1996 Family Planning (PISQ) 1999 Influenza Vaccine (#1) 2023 03/12/2019 SDOH Screening 12/12/2024 12/13/2023 Mammogram 05/22/2025 05/22/2024, 08/0 09/2023, 11/02/2023, Additional history exists Disability Screening 07/10/2025 07/10/2024 Depression Screening 07/11/2025 07/11/2024, 07/12/19 25 Tobacco [...] Procedure Name Priority Date/Time Associated Diagnosis Comments FSH Routine 08/08/2024 10:04 AM EDT Amenorrhea PROLACTIN Routine 08/08/2024 10:04 AM EDT Amenorrhea TSH W/REFLEX TO FT4 Routine 08/08/2024 1 0:04 AM EDT Amenorrhea CBC WITH AUTO DIFFERENTIAL Routine 07/30/2024 8:36 [...] Recently Relevant to Health Maintenance Results * TSH W/Reflex to FT4 (08/08/2024 10:04 AM EDT) TSH reflex Free T4 1.89 0.32 - 4.0 uIU/mL [facility] Blood Venous blood specimen / Unknown 08/08/2024 10:04 AM EDT 08/08/2024 10:54 AM EDT us Kerwin Love CNM LAB BLOOD ORDERABLES Balbina l Result [facility] [address] [place], [place] [phone] * (ABNORMAL) CBC auto differential (07/30/2024 8:36 AM EDT) White Blood Count 5.5 4.8 - 10.8 X10*3/uL [facility] Red Blood Count 4.34 4.20 - 5.50 X10*6/uL [facility] Hemoglobin 13.1 12.0 - 16.0 g/dl [facility] Hematocrit 40.1 37.0 - 47.0 % [facility] Mean Corpuscular Volume 92.4 80.0 - 98.0 fL [facility] Mean Corpuscular Hemoglobin 30.2 27.0 - 33.0 pg [facility] Mean Corpuscular HGB Conc 32.7 31.0 - 35.0 g/dl [facility] Red Cell Distribution Width 12.6 11.0 - 16.0 % [facility] Platelet Count 181 160 - 400 X10*3/uL [facility] Mean Platelet Volume 10.7 9.4 - 12.3 fL [facility] Neutrophils Percent Auto 74.4(H) 45 - 73 % [facility] Imm Gran Pct Auto 0.5(H) 0.0 - 0.4 % [facility] Lymphocytes Percent Auto 14.1(L) 20 - 40 % [facility] Monocytes Percent Auto 8.8 2 - 11 % [facility] Eosinophils Percent Auto 1.5 0 - 4 % [facility] Basophils Percent Auto 0.7 0 - 2 % [facility] NRBC Pct Auto 0.0 0.0 - 0.2 /100WBC [facility] Neutrophils Absolute Auto 4.1 2.0 - 8.3 x10*3/uL [facility] Imm Gran Abs Auto 0.03 0.00 - 0.03 X10*3/uL [facility] Lymphocytes Absolute Auto 0.8(L) 1.2 - 4.9 X10*3/uL [facility] Monocytes Absolute Auto 0.5 0.1 - 1.2 X10*3/uL [facility] Eosinophils Absolute Auto 0.1 0.0 - 0.4 X10*3/uL [facility] Basophils Absolute Auto 0.0 0.0 - 0.2 X10*3/uL [facility] NRBC Abs Auto 0.000 0.0 - 0.012 X10*3/uL [facility] 07/30/2024 8:36 AM EDT 07/30/2024 11:08 AM EDT us Generic External Data Provider LAB BLOOD ORDERAB LES Final Result Performing Organization Address City/State/[facility] Co de Phone Number [facility] [address] [place] [address] [phone] * BI Mammogram Screening Tomosynthesis Right (05/22/2024 11:50 AM EST) Anatomical Region Laterality Modality Breast Right Mammography 05/22/2024 11:5 0 AM EST Narrative 05/22/2024 12:32 PM EST ? [facility] [place] ? [address] ?[place] [address] ? Mammography Report ? Signed ? Patient: Juliano,Cathia ?MR#: [id number] ?? 177 ? : 1985 ?Acct:[id number] ? Age/Sex: 39 / F ?ADM Date: 02/25/25 ? Loc: HO.MAMMO ? Attending Dr: Jan Donald MD ? Ordering Physician: Jan Donald MD ?Results: 1Nega ?? tive ? Date of Service: 05/22/24 ?Follow Up: 1 Year From Orig ?? inal Mammogram ? Procedure(s): MM tomosynthesis screening RT ?? Accession Number(s): [id number] ? cc: Jan Donald MD; Naa Leigh [...] DD/ 1150 ? TD/TT: 05/22/24 1220 ? Conservation Specialist: ? Procedure Note Donotuseinterpreter, Image - 05/22/2024 [facility] [address] [place] [address] Dr. [place], [place] [address] Mammography Report Signed Patient: Yoandy HenaoMR#: [id number] : 1985Acct:[id number] Age/Sex: 39 / FADM Date: 05/22/24 Loc: HO.MAMMO Attending Dr: Jan Donald MD Ordering Physician: Jan Donald MDResults: 1Nega tive Date of Service: 05/22/24Follow Up: 1 Year From Orig inal Mammogram Procedure(s): MM tomosynthesis screening RT Accession Number(s): [id number] cc: Jan Donald MD; Naa Leigh MD [...] Sabrina Neville DO 05/22/2024 12:29 PM EST Dictated By: Sabrina Neville DO Signed By: <Electronically signed by Sabrina Neville DO in OV> 05/22/24 1229 DD/ 1150 TD/TT: 05/22/24 1220 Conservation Specialist: [facility] External Provider IMG BI PROCEDURES Final Result * Hepatitis Panel, General (10/20/2023 11:24 AM EDT) Hepatitis A IgM Nonreactive Nonreactive [facility] Comment:IgM antibodies to GILMORE V not detected; does not exclude earlyacute or recovered HAV infection. ~Hepatitis B Surface Antibody REACTIVE Nonreactive [facility] Comment:REACTIVE: > 11.99 mI U/mL Hepatitis B Core Antibody Nonreactive Nonreactive [facility] Hepatitis C Antibody Nonreactive Nonreactive [facility] Comment:Antibodies to HCV no t detected; does not exclude early acuteHCV infection. Hepatitis B Surface Ag Negative Negative [facility] 10/20/2023 11:2 4 AM EDT 10/20/2023 11:24 AM EDT Generic External Data Provider LAB BLOOD ORDERAB LES Final Result [facility] [address] [place] [phone] * (ABNORMAL) Lipid Panel, Standard (10/20/2023 11:24 AM EDT) Triglycerides 306(H) <150 mg/dL [facility] Comment:Desirable Triglyceri de: less than 150 mg/dLBorderline High Triglyceride 150-199 mg/dLHigh Triglyceride: 200-499 mg/dLVery High Triglyceride: greater than or equal to 5OO mg/dL Cholesterol 263(H) <200 mg/dL [facility] Comment:Desirable Cholestero l: less than 200 mg/dLBorderline High Cholesterol: 200-239 mg/dLHigh Cholesterol: greater than 239 mg/dL LDL Cholesterol Calculated 148(H) <100 mg/dL [facility] Comment:Desirable LDL: less than 100 mg/dLNear Optimal/Above Optimal LDL: 110- 129 mg/dLBorderline High LDL: 130-159 mg/dLHigh LDL: 160-189 mg/dLVery High LDL: greater than or equal to 190 mg/dL HDL Cholesterol 54 >40 mg/dL [facility] Comment:Desirable HDL: great er than 40 mg/dL Note: This HDL assay may give artificially low results in patients with liver disease. Blood Venous blood specimen / Unknown 10/20/2023 11:24 AM EDT 10/20/2023 11:24 AM EDT us Naa Roberts MD LAB BLOOD ORDERAB LES Final Result Performing Organization Address [facility] Co de Phone Number [facility] [address] [place] [address] [phone] * HPV mRNA E6/E7 w/Reflex to HPV Genotypes 16, 18/45 (08/08/2023 9:33 AM EDT) HPV nRNA E6/E7 Not Detected Not Detected [facility] Comment:Methodology: Transcr iption-Mediated AmplificationThis assay detects E6/E7 viral messenger RNA (mRNA) from 14high-risk HPV types (16,18,31,33,35,39,45,51,52,56,58,59,66,68).Cervical sources are required for HPV testing.If a vaginal source from a patient who has had atotal hysterectomy with removal of cervix wassubmitted, please contact the testing laboratoryfor alternative testing options.For additional information, please refer tohttp://education.Vonage/faq/GPM403n7(This link if provided for information/educational purposes only.)THIS TEST WAS PERFORMED AT:[employer] [place] [phone] HORNE MD HPV mRNA E6/E7 [facility] HPV 16 RNA [facility] HPV 18/45 RNA [facility] 08/08/2023 9:33 AM EDT 08/09/2023 8:45 AM EDT us Kerwin Love CNM LAB CYTOLOGY ORDERABLES F inal Result Performing Organization Address [facility]/State/ZIP Co de Phone Number [facility] [address] [place] [address] [phone] * Pap Smear (08/08/2023 9:33 AM EDT) Swab Cervix uteri structure / Unknown 08/08/2023 9:33 AM EDT 08/09/2023 8:45 AM EDT Narrative [facility] - 08/23/2023 12:57 PM EDT ----- ------- Name: Yoandy Henao ?Age/Sex: 38/F ? : 1985 Unit#: [id number] ?? Attend Dr: KERWIN LOVE CNM ?Re08/08/23 ?Status: DEP REF ? Location: HO.LNP ?Disch: ? ----- ------- SPEC : [id number] ? RECD: 08/09/23-844 ? STATUS: ??SOUT ? REQ NUM: [id number] ? SELENA: 08/08/23 ? SUBM DR: KERWIN [...] 66, 68) ? HPV testing performed by [facility], [place], [place]. ??See reference laboratory ?? portion of the EMR for entire report. ?Clinical Information LMP: Unknown date Previous PAP test: 06/2018, WNL ? Material Received ?? ThinPrep-Cervical ----- ------- Signed (signature on file) Janis Castillo 08/23/23 1257 ? ----- ------- ? END OF REPORT ? us Kerwin Love [facility] CYTOLOGY ORDERABLES F inal Result [facility] [address] [place] [phone] * HIV-1/2 Antigen and Antibodies, Fourth Generation, with Reflexes (09/08/2022 8:29 AM EDT) [facility] HIV Antigen/Antibody, 4th Generation NON-REAC TIVE NON-REAC TIVE [facility] Comment: HIV-1 antigen and HIV-1/HIV-2 antibodies were [...] ?? For additional information please refer to http://education.KnowledgeMill.PillPack/faq/PNG862 (This link is being provided for informational/ educational purposes only.) The performance of this assay has not been clinically validated in patients less than 2 years old. Blood Venous blood specimen / Unknown 09/08/2022 8:29 AM EDT 09/08/2022 8:30 AM EDT Narrative [facility] - 09/10/2022 3:43 PM EDT FASTING:YES FASTING: YES Naa Roberts MD LAB BLOOD ORDERAB LES Final Result [facility] [address], [place] [address] [facility] [address] [place] [phone] from Last 3 Months or Most Recently Relevant to Health Maintenance Insurance STANDARD Care Teams Flatwork Finisher Hand Relationship Specialty Start Date End Date Naa Leigh MD [address] [place] [phone] PCP - General Internal Medicine 08/04/22 [facility] 01/19/24
== END 2024-08-13 15:49 | disposition home or self-care (01) ==
LOC: HO.US 15:48
PROVIDERS: PCP Student in an Organized Health Care Education/Training Program; Visit Provider Student in an Organized Health Care Education/Training Program
DX: N83.201 Unspecified ovarian cyst, right side (principal)
CPT/HCPCS: 76830; 76856

== ENCOUNTER → 2024-08-13 15:54 | Outpatient (BNV) | payer MEDICAID, SELFPAY | PROVIDERS: PCP Student in an Organized Health Care Education/Training Program; Visit Provider Radiology Diagnostic Radiology | DX: N83.291 Other ovarian cyst, right side (principal) | CPT/HCPCS: 76830; 76856 ==

== ENCOUNTER 2024-08-28 14:49 | Outpatient (REF) | payer MEDICAID, SELFPAY ==
--- NOTE | ~2024-08-28 | CT_ITS ---
CLINICAL HISTORY: Right adrenal nodule,perform with adrenal protocol CT abdomen with and without IV contrast. CT pelvis with. Comparison: None Findings: RIGHT ADRENAL GLAND: Nodule:Single nodule posterior limb Measurement:2.3 cm Unenhanced appearance:Homogeneous. No calcifications. Unenhanced attenuation:-2.0 hU Parenchymal phase attenuation:53 hU Delayed phase attenuation:28 hU Relative washout:47% Absolute washout:45% LEFT ADRENAL GLAND: Nodule:None. Relative washout:47%. Greater than 40% washout is highly suggestive of an adrenal adenoma Absolute washout:45% Greater than 60% washout is highly suggestive of adrenal adenoma Lung bases show no active disease. No dependent layering pleural effusions. The heart is not enlarged. Hepatic steatosis No focal hepatic lesions. Patent hepatic and portal veins. Physiologic distention of the gallbladder with no radiopaque gallstones. Homogeneous enhancement of the pancreas. No splenomegaly. Symmetrical renal excretion with no segmental or diffuse renal parenchymal disease or evidence of obstructive uropathy/hydroureteronephrosis.No renal masses. Normal caliber abdominal aorta. Increased stool burden. No free air or fluid or inflammatory process demonstrated. No intraperitoneal or retroperitoneal masses lymphadenopathy or abnormal fluid collections.. Normal CT appearance of the ovaries. Normal distention of the urinary bladder. No vertebral body compression fractures or spondylolisthesis. Chronic L5 pars defect. Discogenic changes L4-5.. No bony destructive lesions. Impression: 1. Indeterminate right adrenal nodule although likely to be a adrenal adenoma. Consider follow-up in 3-4 months time. 2. Hepatic steatosis. This document has been electronically signed by: Nader Valentine MD on 08/29/2024 12:58:02
[2024-08-28] MEDS: iohexoL 350 MG/ML 100 ML INFUS..BTL IV (16:22)
== END 2024-08-28 14:50 | disposition home or self-care (01) ==
LOC: HO.CT 14:49
PROVIDERS: PCP Student in an Organized Health Care Education/Training Program; Visit Provider Internal Medicine Medical Oncology
DX: E27.9 Disorder of adrenal gland, unspecified (principal)
CPT/HCPCS: 74178; Q9967

== ENCOUNTER → 2024-08-28 14:53 | Outpatient (BNV) | payer MEDICAID, SELFPAY | PROVIDERS: PCP Student in an Organized Health Care Education/Training Program; Visit Provider Radiology Diagnostic Radiology | DX: K76.0 Fatty (change of) liver, not elsewhere classified (principal); E27.8 Other specified disorders of adrenal gland | CPT/HCPCS: 74178 ==

== ENCOUNTER 2024-09-11 09:26 | Outpatient (AMB) | payer MEDICAID, SELFPAY ==
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
[2024-09-11 09:32] VITALS: BP 123/77; PULSE 94; BMI 28.0
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
== END 2024-09-11 09:43 | disposition home or self-care (01) ==
LOC: HO.HGS 09:27
PROVIDERS: PCP Student in an Organized Health Care Education/Training Program; Visit Provider Surgery
DX: C50.912 Malignant neoplasm of unspecified site of left female breast (principal); Z90.12 Acquired absence of left breast and nipple
CPT/HCPCS: 99213

== ENCOUNTER → 2024-09-11 09:26 | Outpatient (BNVA) | payer MEDICAID, SELFPAY | PROVIDERS: PCP Student in an Organized Health Care Education/Training Program; Visit Provider Surgery | DX: C50.912 Malignant neoplasm of unspecified site of left female breast (principal); Z90.12 Acquired absence of left breast and nipple; Z98.890 Other specified postprocedural states | CPT/HCPCS: 99212 ==

== ENCOUNTER 2024-09-17 09:49 | Outpatient (REF) | payer MEDICAID, SELFPAY ==
--- NOTE | ~2024-09-17 | US_ITS ---
EXAMINATION: US DIAGNOSTIC ULTRASOUND BREAST, RIGHT CLINICAL INFORMATION: Breast pain.. She had a recent normal mammogram April 2024 and therefore declined mammogram today. COMPARISON: Comparison is made with relevant prior imaging including normal mammogram April 2024. TECHNIQUE: Ultrasound of the breast is performed with real-time bae scale imaging and color Doppler. FINDINGS: Targeted color Doppler ultrasound scanning in the area the patient's right breast pain from 4-9 o'clock demonstrates normal fibronodular breast tissue. There is no sonographic abnormal findings. Results are discussed with the patient at time of visit. US/US breast RT limited mamm only IMPRESSION: No sonographic abnormality to account for the patient's right breast pain. Recommend clinical evaluation and follow-up. Patient had a recent normal mammogram April 2024 and declines doing additional mammography today. ASSESSMENT: BI-RADS 1: Negative RECOMMENDATION: 1. Patient should be managed based on the clinical impression. Decision to proceed with biopsy should be based on clinical grounds and degree of clinical concern. 2. Otherwise, routine annual screening mammography. This patient's information was entered into a reminder system with a target due date for their next mammogram. Electronically signed by: Sabrina Neville DO 09/17/2024 11:29 AM EDT
--- OUTSIDE RECORDS SUMMARY | 2024-09-17 10:40 | XMS_ITS | Data Portability ---
Author Organization [place] - [facility], Allergy Address [address] [address] Care Team Providers Care Permastone Installer Name Role Phone VINCENT BOLDEN Primary Care [...] had an ultrasound of the neck at [facility] but does not have results for review. I have recommended that she bring a copy of her ultrasound from [facility] for review and we will arrange [...] with the contact information for my certified surgical tech/first assistant. We will begin the scheduling process [...] and still wants to proceed with surgery. [email or web address] Not available 09/05/2024 09:05:01 Plan of Treatment Reminders Order Date Submit Date Provider Last Modified By Organization Details Last Modified Time Details Appointments Post Op 2024 10:30A M ESPERANZA ARCHIBALD [...] of ossicular continuit y (SURG) 2024 025 Not available 09/05/2024 09:15:46 Imaging MRI, brain + internal auditory canal, w/wo contrast - MRI, BRAIN + INTERNAL AUDITORY CANAL, W/WO CONTRAST 2024 025 [facility] ([facility]), [address] [place], [address], 07/22/2024 13:22:41 Medication Orders None recorded. Patient [...] brain + brain stem, w/wo contr [facility] [place] [facility] Access ion Number : [id number] Patien t Name: Mike phillips, Yoandy Whitleya jose Record Number : [id number] Date of : 1984 Date of Exam: 2024 Referr ing Physic carmen: Fitz De Santiago re Ear Nose [address] [place] [address] Exam: MR Brain (C-/C+ ) CPT 68308 Room Descri ption: [facility] Verio 3.0T MR Brain (C-/C+ ) CPT 22951 INDICA TION / CLINIC AL QUESTI ON: Reason For Exam: - Mix cndct/ snrl hear loss,u ni,l ear w rstrcd hear cntra side, , MRI, BRAIN + DIAGNOSTICS TECH AL AUDITO RY CANAL, W/WO CONTRA ST\E E\[facility] (MRI, BRAIN + DIAGNOSTICS TECH AL AUDITO RY CANAL, W/WO CONTRA ST), [...] or abnorm al enhanc ement in the consulting intern al audito ry canals or cerebe [...] onical ly Signed By: Ping Hope MD [facility] ([facility]) [address], [place], [address], 07/26/2024 09:44:25 Result Notes Documentation Provider Name and Address Organization Details Recorded Time Mri, Brain + Brain Stem, W/wo Contrast : [facility] Accession Number: [id number] Patient Name: Yoandy Henao Date of : 1985 Date of Exam: 07-19-2024 Referring Physician: Sarina De Santiago Ear Nose [address] [place] [address] [place] [address] Exam: MR Brain (C-/C+) CPT 66321 [facility] (C-/C+) CPT 72218 INDICATION / CLINICAL QUESTION: Reason For Exam: [...] Electronically Signed By: Ping DE SANTIAGO MD [address] [place] [address], [phone], [facility] - [facility] 07/25/2024 17:42:53 Problems Name Problem SNOMED Code Status Onset Date Resolution Date Notes Provider Name and Address Organization Details Recorded Time Mixed conductive AND sensorineural hearing loss 58061588 Active 2023 Shanda harvey [place] - [facility] 14:51:19 Thyroglossal duct cyst 55480611 Active 2023 SAMANTHA HECTOR PA-C [address] [address], [place], [address], [facility] 4 16:34:03 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 Procedures Surgical History Date Name Laterality Status Provider Name and Address Organization Details Recorded Time 09/13/19 25 STAPEDECTOMY/STAPE DOTOMY W/ REESTABLISHMENT OF OSSICULAR CONTINUITY (SURG) completed Not Available [facility], [facility] 09/12/2024 11:58:11 07/10/19 25 Comp Audio with Tymps - 81363 & 91300 completed Shanda Collier [facility] 07/09/2024 12:12:24 03/12/20 24 Comp Audio with Tymps & Reflexes - 90309 & 10276 completed Shanda Collier [place] [facility] 03/12/2024 14:49:27 03/12/20 24 OAE distortion product, comprehensive - 64733 completed Shanda Collier [facility] 03/12/2024 14:49:31 excision of breast completed Heather Henry [facility] 07/09/2024 11:27:05 Imaging Results None recorded. Procedure Notes None recorded. Medical Equipment None Reported. Allergies Allergen ID Allergen Name Allergen Category Reaction Reaction Severity Criticality Documentation Date Start Date Code Code System Note Provider Name and Address Organization Details Recorded Time 181280 Milk (substanc e) food,medi cation Not available Not available Not available 03/12/2024 86058 002 SNOMED Gladis harvey [place] [facility] 15:05:22 Medications Name Sig Start Date [...] Not Available Not Available Not Available cholecalcif emlo (vitamin D3) 125 mcg (5,000 unit) capsule TAKE 1 CAPSULE BY MOUTH EVERY DAY 03/12 completed Not Available Not Available Not Available tamoxifen 20 mg tablet Take 1 tablet every day by oral route. 2024 active Not Available Not Available Not Avai lable oxycodone 5 mg tablet Take 1 tablet every 4-6 hours by oral route as needed for 3 days. 2024 active Not Available Not Available Not Avai lable Fiber-Lax 625 mg tablet TAKE 1 TABLET BY MOUTH EVERY DAY WITH A FULL GLASS OF WATER active Not Available Not Available No t Available cyclobenzap rine 5 mg tablet TAKE 1 TABLET BY MOUTH AT BEDTIME FOR 10 DAYS. 09/05 completed Not Available Not Available Not [...] completed Not Available Not Available Not Available Kathy 0.35 mg tablet TAKE 1 [...] Details Last Updated DateTime 07/09/2024 157.48 cm 28276.86 g Heather Henry [place] - [facility] 07/09/2024 11:26:17 Date Recorded Body height Body weight Provider Name and Address Organization Details Last Updated DateTime 09/05/2024 157.48 cm 55672.86 g Heather Henry [place] - [facility] 09/05/2024 08:36:17 Date Recorded Body height Body mass index (BMI) Body weight Provider Name and Address Organization Details Last Updated DateTime 03/12/2024 157.48 cm 27.4 kg/m2 32929.86 g Gladis Mcconnell [place] - [facility] 03/12/2024 15:03:45 Social History None recorded. [...] SNOMED-CT Code Diagnosis ICD10 Code Diagnosis Note [id number] SAMANTHA HECTOR PA-C [facility] [address] [address] 03/12/2024 13:53:08 03/12/2024 15:17:55 Mixed conductive AND sensorineural hearing loss 34253905 H90.72 Audiologic al evaluation results: Right ear: [...] the test frequency. Thyrogloss al duct cyst 61059052 Q89.2 [id number] SARINA DE SANTIAGO MD [facility] [address] [address] 07/09/2024 11:22:53 07/09/2024 13:31:30 Mixed conductive and sensorineural hearing loss of left ear [id number] 9107 H90.A32 Audiologic al evaluation results:Le ft ear:Modera tely-sever e raising to a moderate mixed hearing loss with excellent word recognitio n.Tympanom etry:Left Ear:Type A [id number] SARINA DE SANTIAGO MD [facility] [address] [place] [address] 09/05/2024 08:29:30 09/05/2024 09:02:21 Mixed conductive AND sensorineural hearing loss 73802393 H90.72 Health Concerns Section Related Observation LastModified by Organization Detai ls LastModified Time None Recorded Concern Status LastModified by Organization Details LastModified Time None Recorded Advance Directives Directive None Recorded Payers Insurance Date Sequence Insurance Name Policy Number Policy Nuñez Covered Member ID Nuñez Member ID Guarantor Name 09/05/2024 1 [place] [facility] Saranyalorenza Juliano [id number] Saranyaia Juliano 07/09/[address] [facility] [id number] Cathia Juliano [id number] Cathia Juliano Notes Date Note Type Note Provider [...] in March 2024. SAMANTHA HECTOR PA-C 100 [facility], [place], [address], [facility] - [facility] 03/12/2024 16:39:31 07/09/2024 text/html 39-year-old kaushik [...] ear trauma SARINA DE SANTIAGO MD 100 [facility],[address], [address], [place] - [facility] 07/09/2024 12:30:02 09/05/2024 text/html 39-year-old femgael [...] her hearing loss. SARINA DE SANTIAGO MD 100 [facility],[address], [address], [place] - [facility] 09/05/2024 09:05:27 OBGyn Episode No OBEpisode recorded.
== END 2024-09-17 09:50 | disposition home or self-care (01) ==
LOC: HO.MAMMO 09:49
PROVIDERS: PCP Student in an Organized Health Care Education/Training Program; Visit Provider Student in an Organized Health Care Education/Training Program
DX: N64.4 Mastodynia (principal)
CPT/HCPCS: 76642

== ENCOUNTER → 2024-09-17 10:30 | Outpatient (BNV) | payer MEDICAID, SELFPAY | PROVIDERS: PCP Student in an Organized Health Care Education/Training Program; Visit Provider Internal Medicine | DX: N64.4 Mastodynia (principal) | CPT/HCPCS: 76642 ==

== ENCOUNTER 2024-12-13 11:01 | Day surgery (SDC) | payer MEDICAID, SELFPAY ==
--- OUTSIDE RECORDS SUMMARY | 2024-12-05 15:27 | XMS_ITS | Encounter Summary ---
Author Organization [employer] Address [address] [facility] 7 [place] [address] Care Team Providers Care Oil Gauger Name Role Phone Naa Leigh MD Primary Care Pro vider Encounter Details Date Type Department Care Team ([facility] st Contact Info) Description 11/27/2024 Orders Only [facility] MEDICINE [address] [place], [place] [phone] Naa Leigh MD [address] [place], [place] [phone] Social History Tobacco Use Types Packs/Day Years Used Date Smoking Tobacco: Never Passive Smoke Exposure: Never Smokeless Tobacco: Never Alcohol Use Standard Drinks/Week Comments Not Currently 0 (1 standard drink = 0.6 oz pur e alcohol) social from binging pattern Depression Answer Date Recorded Patient Health Questionnaire-9 Score 3 10/25/2024 Patient Health Questionnaire-9 Score 3 10/25/2024 Last PHQ-9: Questionnaire Data Not on file 0 10/25/2024 Housing Stability Answer Date Recorded What is [...] Answer Date Recorded Patient Health Questionnaire-2 Score 1 10/25/2024 Internet Access Answer Date Recorded Internet Access [...] Care Team (Late st Contact Info) Description 02/15/2025 2:30 PM EST Office Visit [facility] OPTOMETRY [address] [place] [address] TarkaTerra, OD [address] [place] [address] documented as of this encounter Visit Diagnoses Not on filedocumented in this encounter Additional Health Concerns Assessment Noted Time PHQ-9 Depression Total Score: 3 10/26/19 25 9:27 AM EDT documented as of this encounter Care Teams Oil Gauger Relationship Specialty Start Date End Date Naa Leigh MD [address] [place] [address] PCP - General Internal Medicine 08/04/22 [facility] 01/19/24 documented as of this encounter
--- OUTSIDE RECORDS SUMMARY | 2024-12-05 15:27 | XMS_ITS | Encounter Summary ---
Author Organization [employer] Address 75 [facility] [address], [place] [address] Care Team Providers Care Engineer System Administrator Name Role Phone Naa Liegh MD Primary Care Pro vider Reason for Visit * Reason Comments Med Refill Encounter Details Date Type Department Care Team ([facility] st Contact Info) Description 10/31/2024 Refill [facility] MEDICINE [address] [place], [place] [phone] Naa Leigh MD [address] [place], [place] [phone] Social History Tobacco Use Types Packs/Day Years [...] Description 02/15/2025 2:30 PM EST Office Visit [facility] OPT[facility]ETRY [address] [place] [address] Tarka, Terra, OD [address] [place] [address] documented as of this encounter Visit Diagnoses Not on filedocumented in this encounter Additional Health Concerns Assessment Noted Time PHQ-9 Depression Total Score: 3 10/26/19 25 9:27 AM EDT documented as of this encounter Care Teams Engineer System Administrator Relationship Specialty Start Date End Date Naa Leigh MD [address] [place] [address] PCP - General Internal Medicine 08/04/22 [facility] 01/19/24 documented as of this encounter
--- OUTSIDE RECORDS SUMMARY | 2024-12-05 15:27 | XMS_ITS | Encounter Summary ---
Author Organization [employer] Address 75 [facility] [address], [place] [address] Care Team Providers Care Clothing Manager Name Role Phone Naa Leigh MD Primary Care Pro vider Reason for Visit * Reason Comments Med Change Request Encounter Details Date Type Department Care Team ([facility] st Contact Info) Description 02/24/2024 Refill [facility] MEDICINE [address] [place], [place] [phone] Naa Leigh MD [address] [place], [place] [phone] Social History Tobacco Use Types Packs/Day Years [...] Description 02/15/2025 2:30 PM EST Office Visit [facility] OPTOMETRY [address] [place] [address] Terra Rodriguez, OD [address] [place] [address] documented as of this encounter Visit Diagnoses Not on filedocumented in this encounter Additional Health Concerns Assessment Noted Time PHQ-9 Depression Total Score: 5 09/16/19 23 9:07 AM EDT documented as of this encounter Care Teams Clothing Manager Relationship Specialty Start Date End Date Naa Leigh MD [address] [place] [address] PCP - General Internal Medicine 08/04/22 [facility] 01/19/24 documented as of this encounter
--- OUTSIDE RECORDS SUMMARY | 2024-12-05 15:27 | XMS_ITS | Clinical Summary ---
Author Organization [employer] Address [address] [facility] 7[address] [place] [address] Care Team Providers Care Guide Escort Name Role Phone Naa Leigh MD Primary Care Pro vider Allergies Active Allergy Reactions Criticality Noted Date Comments Bacid 12/06/2022 Medications * This document contains information received from the source organization and may not represent a complete record from that organization. loratadine (Claritin) 10 MG tablet TAKE 1 TABLET BY MOUTH EVERY DAY NEEDED FOR ALLERGY 09/07/19 23 Active Fiber-Lax 625 MG tablet TAKE 1 [...] day. Active cloNIDine (Catapres) 0.1 MG tablet TAKE 1 TABLET BY MOUTH EVERY DAY AT BEDTIME 30 tablet 3 10/02/19 25 Active magnesium citrate solution Active b complex vitamins capsule 1 capsule Once per day. Active ADVANCED EVENING PRIMROSE OIL PO Take by mouth. Activ e Ketotifen Fumarate 0.035 % solution Administer 1 drop into both eyes at noon and 1 drop in the evening. One drop to eyes bid prn allergies. 10 mL 2 10/27/19 25 Active busPIRone (Buspar) 10 MG tablet Take 1 tablet (10 mg) by mouth 2 times daily. 60 tablet 2 11/28/19 25 026 Active pregabalin (Lyrica) 75 MG capsule Take 1 capsule (75 mg) by mouth 2 times daily. 60 capsule 2 11/28/19 25 026 Active pregabalin (Lyrica) 75 MG capsule Take 1 capsule (75 mg) by mouth 2 times daily. 60 capsule 2 10/26/19 25 025 Discontinued(R eorder (will not trigger notification to Pharmacy)) busPIRone (Buspar) 10 MG tablet Take 1 tablet (10 mg) by mouth 2 times daily. 60 tablet 2 10/26/19 25 025 Discontinued(R eorder (will not trigger notification to Pharmacy)) Active Problems Problem Noted Date Diagnosed Date GEORGINA (generalized anxiety disorder) 10/26/2024 Adrenal nodule 07/11/2024 Breast cancer 07/14/2023 Transaminitis [...] record-already requested by pt---From records reviewed from [facility]-pt had pap smear in 2018 -reported as neg w neg HPV and rec to repeat test in 5 years -aprox 2023 -contraception: continue progestin pill daily-tolerating well ( -reports hx of SE w estrogen pills,IUD, inj) -vaccines:s/p MMRx3, hep A x2, hep Bx3--immune now, tdap 2019, HPV x 3 w her [facility] per pt,COVID 19 x2-advised today again x Bivalent dose but refusing Assessment & Plan (09/15/2022 1:59 PM EDT): -PPD neg per pt -pap smear: 2019 neg per pt --pd to get record-already requested by pt---From records reviewed from [facility]-pt had pap smear in 2018 -reported as neg w neg HPV and rec to repeat test in 5 years -aprox 2023 -contraception: continue progestin pill daily-tolerating well ( -reports hx of SE w estrogen pills,IUD, inj) -vaccines:s/p MMRx3, hep A x2, hep Bx3--immune now, tdap 2018, HPV x 3 w her [facility] per pt,COVID 19 x2-advised today x Bivalent dose but refusing Assessment & Plan (08/05/2022 12:36 PM EDT): From records reviewed from [facility]-pt had pap smear in 2018 -reported as [...] tdap 2018, HPV x 3 w her [facility] per pt,COVID 19 x2-advised today x Bivalent dose. Overweight (BMI 25.0-29.9) 08/04/2022 Assessment & Plan (11/10/2022 9:15 AM EDT): Advised pt to improve diet and exercise,discussed healthy life style 07/2022 Total ch 211, LDL 128,Fasting gl 106 w normal hb1AC, AST wnl,ALT 31- slight elevated -will monitor weight -already started care w solar business developer -repeat fasting lipids in 1 y and fasting chem in 6 mo from last labs -aprox 01/2023 Assessment & Plan (09/15/2022 1:59 PM EDT): Advised pt to improve diet and exercise,discussed healthy life style 07/2022 Total ch 211, LDL 128,Fasting gl 106 w normal hb1AC, AST wnl,ALT 31- slight elevated -will monitor weight -referred today to solar business developer -repeat fasting lipids in 1 y and [...] 2:06 PM EDT): Reports hx of anxiety ,GEORGNIA today is 12,denies depression PHQ9 today is [...] Problem Noted Date Diagnosed Date Resolved Date Lesion of ovary 07/11/2024 10/25/2024 Skin infection 02/02/2024 07/11/2024 Folliculitis 11/18/2023 12/13/2023 Assessment & Plan (11/18/2023 10:29 AM EDT): In light that patient just finish her chemo I will treat folliculitis systemically with doxycycline, I will also cover for possible fungal etiology and due to severe itchiness I will prescribed clotrimazole betamethasone cream, reports back if rash persists, ED precautions reviewed Encounters * This document contains information received from the source organization and may not represent a complete record from that organization. Date Type Department Care Team Description 11/27/2024 Orders Only [facility] MEDICINE [address] [place] [address] Naa Leigh MD 11/27/2024 Orders Only [facility] MEDICINE [address] [place] [address] Naa Leigh MD 11/27/2024 Telephone [facility] MEDICINE [address] [place] [address] Naa Leigh MD Med Refill 10/31/2024 Refill [facility] MED[facility] [address] [place] [address] Naa Leigh MD 10/26/2024 Orders Only [facility] MEDICINE [address] [place] [address] Naa Leigh MD 10/26/2024 Orders Only [facility] MED[facility]INE [address] [place] [address] Naa Leigh MD 10/25/2024 9:00 AM EDT Office Visit [facility] MED[facility]INE [address] [place] [address] Naa Leigh MD Hypertension, unspecified type (Primary Dx); Adrenal nodule (CMS/HCC); Annual physical exam; Cyst in neck at ; Hearing loss, unspecified hearing loss type, unspecified laterality; Overweight (BMI 25.0-29.9); Transaminitis; Health care maintenance; Malignant neoplasm of left breast in female, estrogen receptor positive, unspecified site of breast (CMS/HCC); Anxiety; Neuropathy 10/25/2024 Travel 10/24/[address] [address] Naa Leigh MD chart prep 10/18/2024 Patient Outreach [address] [address] Naa Leigh MD Pre-visit Planning (Pre-visit planning - LVM ) 09/29/[address] [address] Kerwin Love CN 09/21/2024 Orders Only [address] [address] Naa Leigh MD 09/17/2024 Results Follow-Up [address] [address] Naa Leigh MD BI US Breast Limited Right from Last 3 Months Immunizations Immunization Administration [...] Sign Reading Time Taken Comments Blood Pressure 100/76 10/25/2024 9:07 AM EDT Pulse 80 10/25/2024 9:07 AM EDT Temperature 36.8 C (98.2 F) 10/25/2024 9:07 AM EDT Respiratory Rate 17 10/25/2024 9:07 AM EDT Oxygen Saturation 98% 08/07/2024 9:04 AM EDT Inhaled Oxygen Concentration - - Weight 68 kg (150 lb) 10/25/2024 9:07 AM EDT Height 157.5 cm (5' 2 ) 10/25/2024 9:07 AM EDT Body Mass Index 27.44 10/25/2024 9:07 AM EDT Plan of Treatment Upcoming Encounters Date Type Department Care Team (Late st Contact Info) Description 02/15/2025 2:30 PM EST Office Visit [facility] OPTOMETRY [address] [place], [place] [phone] Terra Rodriguez, OD [address] [place] [address] Health Maintenance Due Date Last Done Comments Family Planning (PISQ) 1999 HPV Vaccines (1 - 3-dose series) 1999 Influenza Vaccine (#1) 2024 03/12/2019 SDOH Screening 12/12/2024 12/13/2023 Mammogram 09/17/2025 09/17/2024, 04/29, 11/02/2023, Additional history exists Alcohol/Substance Use Screening 10/25/2025 10/25/2024 Depression Screening 10/25/2025 10/25/2024, 10/26/19 25 Disability Screening 10/25/2025 10/25/2024 Tobacco Screening 10/25/2025 10/25/2024 Cervical Cancer Screening 08/07/2028 HPV/Cotest 08/07/2028 08/08/2023 [...] 09/08/2022 Hepatitis C Screening Completed 10/20/2023, 023 Meningococcal B Vaccine Aged Out No l onger eligible based on patient's age to complete this topic Meningococcal Vaccine Aged Out No beulah zafar eligible based on patient's age to complete this topic Pneumococcal Vaccine: Pediatrics (0 to 5 Years) and At-Risk Patients (6 to 49) Years Aged Out No longer eligible based on patient's age to complete this topic RSV under 20 months Aged Out No longe r eligible based on patient's age to complete this topic Rotavirus Vaccines Aged Out No longer eligible based on patient's age to complete this topic Procedures Procedure Name Priority Date/Time Associated Diagnosis Comments BI US BREAST LIMITED RIGHT STAT 09/17/2024 10:00 AM EDT Breast pain, right AMB REFERRAL TO ENT Routine 09/05/2024 Hearing loss, unspecified hearing loss type, unspecified laterality Cyst in neck at HEPATITIS PANEL, GENERAL Routine 10/20/2023 11:24 AM [...] Relevant to Health Maintenance Results * BI US Breast Limited Right (09/17/2024 10:00 AM EDT) Anatomical Region Laterality Modality Breast Right Ultrasound 09/17/2024 10:0 0 AM EDT Narrative 09/17/2024 11:32 AM EDT [facility] [address] [place] [address] Ultrasound Report Signed Patient: Yoandy Henao MR#: [id number] 177 : 1985 Acct:[id number] Age/Sex: 39 / F ADM Date: 09/17/24 Loc: HO.MAMMO Attending Dr: Naa Roberts MD Ordering Physician: Naa Leigh MD Date of Service: 09/17/24 Procedure(s): US breast RT limited mamm only Accession Number(s): [id number] cc: Naa Leigh MD EXAMINATION: US DIAGNOSTIC ULTRASOUND BREAST, RIGHT CLINICAL INFORMATION: Breast pain.. She had a recent normal mammogram April 2024 and therefore declined mammogram today. COMPARISON: Comparison is made with relevant prior imaging including normal mammogram April 2024. TECHNIQUE: Ultrasound of the breast is performed with real-time bae scale imaging and color Doppler. FINDINGS: Targeted color Doppler ultrasound scanning in the area the patient's right breast pain from 4-9 o'clock demonstrates normal fibronodular breast tissue. There is no sonographic abnormal findings. Results are discussed with the patient at time of visit. US/US breast RT limited mamm only IMPRESSION: No sonographic abnormality to account for the patient's right breast pain. Recommend clinical evaluation and follow-up. Patient had a recent normal mammogram April 2024 and declines doing additional mammography today. ASSESSMENT: BI-RADS 1: Negative RECOMMENDATION: 1. Patient should be managed based on the clinical impression. Decision to proceed with biopsy should be based on clinical grounds and degree of clinical concern. 2. Otherwise, routine annual screening mammography. This patient's information was entered into a reminder system with a target due date for their next mammogram. Electronically signed by: Sabrina Neville DO 09/17/2024 11:29 AM EDT Dictated By: Sabrina Neville DO Signed By: <Electronically signed by Sabrina Neville DO in OV> 09/17/24 1129 DD/ 1000 TD/TT: 09/17/24 1026 Cloth Bleaching Range Tender: Procedure Note Donotuseinterpreter, Image - 09/17/2024 [facility] [address] [place], [place] [address] Ultrasound Report Signed Patient: Yoandy Henao#: [id number] 177 : 1985Acct:[id number] Age/Sex: 39 / FADM Date: 09/17/24 Loc: HO.MAMMO Attending Dr: Naa Roberts MD Ordering Physician: Naa Leigh MD Date of Service: 09/17/24 Procedure(s): US breast RT limited mamm only Accession Number(s): [id number] cc: Naa Leigh MD EXAMINATION: US DIAGNOSTIC ULTRASOUND BREAST, RIGHT CLINICAL INFORMATION: Breast pain.. She had a recent normal mammogram April 2024 and therefore declined mammogram today. COMPARISON: Comparison is made with relevant prior imaging including normal mammogram April 2024. TECHNIQUE: Ultrasound of the breast is performed with real-time bae scale imaging and color Doppler. FINDINGS: Targeted color Doppler ultrasound scanning in the area the patient's right breast pain from 4-9 o'clock demonstrates normal fibronodular breast tissue. There is no sonographic abnormal findings. Results are discussed with the patient at time of visit. US/US breast RT limited mamm only IMPRESSION: No sonographic abnormality to account for the patient's right breast pain. Recommend clinical evaluation and follow-up. Patient had a recent normal mammogram April 2024 and declines doing additional mammography today. ASSESSMENT: BI-RADS 1: Negative RECOMMENDATION: 1. Patient should be managed based on the clinical impression. Decision to proceed with biopsy should be based on clinical grounds and degree of clinical concern. 2. Otherwise, routine annual screening mammography. This patient's information was entered into a reminder system with a target due date for their next mammogram. Electronically signed by: Sabrina Neville DO 09/17/2024 11:29 AM EDT Dictated By: Sabrina Neville DO Signed By: <Electronically signed by Sabrina Neville DO in OV> 09/17/24 1129 DD/ 1000 TD/TT: 09/17/24 1026 Cloth Bleaching Range Tender: us Naa Roberts MD IMG US PROCEDURES Final Result * Referral to ENT (09/05/2024) us Naa Roberts MD OUTPATIENT REFERR AL ORDERABLES Final Result * Hepatitis Panel, General (10/20/2023 11:24 AM EDT) Pathologist [facility] Hepatitis A IgM Nonreactive Nonreactive [facility] Comment:IgM antibodies to GILMORE V not detected; does not exclude earlyacute or recovered HAV infection. ~Hepatitis B Surface Antibody REACTIVE Nonreactive [facility] Comment:REACTIVE: > 11.99 mI U/mL Hepatitis B Core Antibody Nonreactive Nonreactive [facility] Hepatitis C Antibody Nonreactive Nonreactive [facility] Comment:Antibodies to HCV no t detected; does not exclude early acuteHCV infection. Hepatitis B Surface Ag Negative Negative [facility] 10/20/2023 11:2 4 AM EDT 10/20/2023 11:24 AM EDT Generic External Data Provider LAB BLOOD ORDERAB LES Final Result [facility] [address] [place] [phone] * (ABNORMAL) Lipid Panel, Standard (10/20/2023 11:24 AM EDT) Triglycerides 306(H) <150 mg/dL [facility] Comment:Desirable Triglyceri de: less than 150 mg/dLBorderline High Triglyceride 150-199 mg/dLHigh Triglyceride: 200-499 mg/dLVery High Triglyceride: greater than or equal to 5OO mg/dL Cholesterol 263(H) <200 mg/dL [facility] Comment:Desirable Cholestero l: less than 200 mg/dLBorderline High Cholesterol: 200-239 mg/dLHigh Cholesterol: greater than 239 mg/dL LDL Cholesterol Calculated 148(H) <100 mg/dL [facility] Comment:Desirable LDL: less than 100 mg/dLNear Optimal/Above Optimal LDL: 110- 129 mg/dLBorderline High LDL: 130-159 mg/dLHigh LDL: 160-189 mg/dLVery High LDL: greater than or equal to 190 mg/dL HDL Cholesterol 54 >40 mg/dL [facility] Comment:Desirable HDL: great er than 40 mg/dL Note: This HDL assay may give artificially low results in patients with liver disease. Blood Venous blood specimen / Unknown 10/20/2023 11:24 AM EDT 10/20/2023 11:24 AM EDT Naa Roberts MD LAB BLOOD ORDERAB LES Final Result [facility] [address] [place] [phone] * HPV mRNA E6/E7 w/Reflex to HPV Genotypes 16, 18/45 (08/08/2023 9:33 AM EDT) HPV nRNA E6/E7 Not Detected Not Detected [facility] Comment:Methodology: Transcr iption-Mediated AmplificationThis assay detects E6/E7 viral messenger RNA (mRNA) from 14high-risk HPV types (16,18,31,33,35,39,45,51,52,56,58,59,66,68).Cervical sources are required for HPV testing.If a vaginal source from a patient who has had atotal hysterectomy with removal of cervix wassubmitted, please contact the testing laboratoryfor alternative testing options.For additional information, please refer tohttp://education.[employer]/faq/VJK418b4(This link if provided for information/educational purposes only.)THIS TEST WAS PERFORMED AT:[facility] [place] [phone] HORNE MD HPV mRNA E6/E7 TNP [facility] HPV 16 RNA TNP [facility] HPV 18/45 RNA TNP [facility] 08/08/2023 9:33 AM EDT 08/09/2023 8:45 AM EDT us Kerwin TARANGO LAB CYTOLOGY ORDERABLES F inal Result [facility] [address] [place] [phone] * Pap Smear (08/08/2023 9:33 AM EDT) Swab Cervix uteri structure / Unknown 08/08/2023 9:33 AM EDT 08/09/2023 8:45 AM EDT Narrative [facility] - 08/23/2023 12:57 PM EDT ----- ------- Name: Yoandy Henao Age/Sex: 38/F : 1985 Unit#: [id number] Attend Dr: KERWIN LOVE CNM Re08/08/23 Status: DEP REF Location: [facility] Disch: ----- ------- SPEC : [id number] RECD: 08/09/23 STATUS: CINDY ANDERSON NUM: [id number] SELENA: 08/08/23 [facility] DR: KERWIN LOVE CNM ENTERED: 08/09/23 SP TYPE: Pap Smr OTHR DR: ORDERED: Pap Smear, PAP path review Interpretation General Category: Negative for intraepithelial lesion/malignancy. Adequacy: Endocervical component absent. Interpretation: Reactive cellular changes. HPV mRNA E6/E7: NOT DETECTED This assay detects E6/E7 viral messenger RNA (mRNA) from 14 high-risk HPV types (16, 18, 31, 33, 35, 39, 45, 51, 52, 56, 58, 59, 66, 68) HPV testing performed by [facility], [place], [place]. See reference laboratory portion of the EMR for entire report. Clinical Information LMP: Unknown date Previous PAP test: 06/2018, WNL Material Received ThinPrep-Cervical ----- ------- Signed (signature on file) Janis [place] 08/23/23 1257 ----- ------- END OF REPORT Kerwin Love CNM LAB CYTOLOGY ORDERABLES F inal Result [facility] [address] [place] [phone] * HIV-1/2 Antigen and Antibodies, Fourth Generation, with Reflexes (09/08/2022 8:29 AM EDT) HIV Antigen/Antibody, 4th Generation NON-REAC TIVE NON-REAC TIVE [facility] Comment: HIV-1 antigen and HIV-1/HIV-2 antibodies were not detected. There is no laboratory evidence of HIV infection. PLEASE NOTE: This information has been disclosed to you from records whose confidentiality may be protected by state law. If your state requires such protection, then the state law prohibits you from making any further disclosure of the information without the specific written consent of the person to whom it pertains, or as otherwise permitted by law. A general authorization for the release of medical or other information is NOT sufficient for this purpose. For additional information please refer to http://education.[employer]/faq/XKI112 (This link is being provided for informational/ educational purposes only.) The performance of this assay has not been clinically validated in patients less than 2 years old. Blood Venous blood specimen / Unknown 09/08/2022 8:29 AM EDT 09/08/2022 8:30 AM EDT Narrative [facility] - 09/10/2022 3:43 PM EDT FASTING:YES FASTING: YES Naa Roberts MD LAB BLOOD ORDERAB LES Final Result [facility] [address], [place] [address] [facility] [address] [place] [phone] from Last 3 Months or Most Recently Relevant to Health Maintenance Insurance [facility] C3 Care Teams Guide Escort Relationship Specialty Start Date End Date Naa Leigh MD [address] [place] [id number] PCP - General Internal Medicine 08/04/22 [facility] 01/19/24
--- OUTSIDE RECORDS SUMMARY | 2024-12-05 15:27 | XMS_ITS | Patient Health Record ---
Author Organization [facility] Address [address] [place] [address] Care Team Providers Care Blasting Helper Name Role Phone ChandrakantTamrad Primary Care Provider [phone] Allergies No Known Allergies Reason For Referral No Information Medications Medication SIG (Take, Route, Fr equency, Duration) Notes Start Date End Date Status Famotidine 20 MG 1 tablet at bedtime as needed Orally Once a day; Duration: 30 day(s) 01/23/2021 Active Sertraline HCl 50 MG 1 tablet Orally one every night; Duration: 90 days 01/08/2021 Active Immunizations Vaccine Route Administration Date Status Comme nts Influenza- Afluria Quadrivalant Unknown 02/06/2017 Admi nistered Social History Tobacco Use: Social History Observation Description Date Details (start date - stop date) Never Smoker NA - NA Alcohol Question Answer Notes Did you have [...] Notes Are you a: never smoker sf 2018 Problems Problem Type SNOMED Code ICD Code Onset Dates Problem Status W/U Status Risk Notes Problem Hyperlipidemia (51823711) Hyperlipidemia, unspecified (E78.5) Active confirmed Problem Anxiety disorder (752941503) Other mixed anxiety disorders (F41.3) Active confirmed Problem Essential hypertension (93903430) Essential (primary) hypertension (I10) Active confirmed Plan Of Treatment Pending Test Test Name Order Date VENIPBUTCH, ROUTINE* 04/27/2021 VENIPUNCT, ROUTINE* 01/19/2021 COMPREHENSIVE METABOLIC PANEL 01/19/2021 CBC (INCLUDES DIFF/PLT) 01/19/2021 LIPID PANEL 01/19/2021 TSH, 3RD GENERATION 01/19/2021 Insurance Providers Payer Name Payer Address Payer Phone Subscriber Number Group Number Insured Name Patient Relationship to Insured Coverage Start Date Coverage End Date [employer] [id number] [place] [address] [id number] Yoandy Henao Self - patient is the insured Medical (General) History Medical History History ICD Code Impaired Fasting fasting Glucose Hyperlipidemia Herniated Cervical and Lumbar Disk Follo wing - 2017 Perrineal allergy Insomnia Cat, Mold , Dairy , Cockroach and Dust M ites Surgical History Surgery Date(Month/Year)
--- OUTSIDE RECORDS SUMMARY | 2024-12-05 15:27 | XMS_ITS | Encounter Summary ---
Author Organization [employer] [facility] Address [address] [place] [address] Care Team Providers Care Customer Relations Consultant Name Role Phone Naa Leigh MD Primary Care Pro vider Reason for Visit * Reason Onset Date Comments Med Refill 10/02/2022 Encounter Details Date Type Department Care Team (Late st Contact Info) Description 10/02/2022 Refill [facility] MED[facility] [address] [place] [address] Naa Leigh MD [address] [place] [address] Social History Tobacco Use Types Packs/Day Years [...] PM EST Office Visit [facility] [address] [place], [place] [phone] Terra Rodriguez, OD [address] [place], [place] [phone] documented as of this encounter Visit Diagnoses Not on filedocumented in this encounter Additional Health Concerns Assessment Noted Time PHQ-9 Depression Total Score: 5 09/16/19 23 9:07 AM EDT documented as of this encounter Care Teams Customer Relations Consultant Relationship Specialty Start Date End Date Naa Leigh MD [address] [place] [phone] PCP - General Internal Medicine 08/04/22 [facility] 01/19/24 documented as of this encounter
--- OUTSIDE RECORDS SUMMARY | 2024-12-05 15:27 | XMS_ITS | Encounter Summary ---
Author Organization [employer] Address [address] [facility] [address] [address] Care Team Providers Care Space Operations Name Role Phone Naa Leigh MD Primary Care Pro vider Reason for Visit * Reason Comments Med Refill Encounter Details Date Type Department Care Team ([facility] st Contact Info) Description 08/05/2023 Refill [facility] MEDICINE [address] [place], [place] [phone] Naa Leigh MD [address] [place], [place] [phone] Social History Tobacco Use Types Packs/Day Years [...] Description 02/15/2025 2:30 PM EST Office Visit [facility] OPTOMETRY [address] [place], [place] [phone] Terra Rodriguez, OD [address] [place] [address] documented as of this encounter Visit Diagnoses Not on filedocumented in this encounter Additional Health Concerns Assessment Noted Time PHQ-9 Depression Total Score: 5 09/16/19 23 9:07 AM EDT documented as of this encounter Care Teams Space Operations Relationship Specialty Start Date End Date Naa Leigh MD [address] [place] [address] PCP - General Internal Medicine 08/04/22 [facility] 01/19/24 documented as of this encounter
--- OUTSIDE RECORDS SUMMARY | 2024-12-05 15:27 | XMS_ITS | Clinical Summary ---
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 02/02/20 24 Active famotidine (PEPCID) 40 MG tablet Take 40 mg by mouth. 09/08/19 24 Active gabapentin (NEURONTIN) 300 MG capsule Take 300 mg by mouth. 02/02/20 24 025 Active ketotifen (ZADITOR) 0.025 % (0.035 %) ophthalmic solution One drop to eyes bid prn allergies 05/12/19 24 Active loratadine (CLARITIN) 10 mg tablet Take 1 tablet by mouth daily as needed. 09/07/19 23 Active ondansetron (ZOFRAN-ODT) 8 MG disintegrating tablet DISSOLVE 1 TABLET ON tonuge EVERY 8 HOURS 06/24/19 24 Active senna (SENOKOT) 8.6 mg tablet TAKE 2 TABLETS BY MOUTH EVERY DAY AT BEDTIME NEEDED FOR CONSTIPATION 09/08/19 24 Active tamoxifen (NOLVADEX) 10 MG tablet Take 20 mg by mouth daily. 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 Rad Onc [address] [place] [address] Shaniqua Steward MD Malignant neoplasm of upper-inner quadrant of left breast in female, estrogen receptor positive (Primary Dx) from Last 3 Months Family History Medical History Relation Comments Colon cancer Paternal Grandmother Ovarian cancer Paternal Grandmother Relation Status Comments Paternal Grandmother Social History Tobacco Use Types Packs/Day Years Used Date Smoking Tobacco: Never Smokeless Tobacco: Never Tobacco Cessation:Counseling Given: Not Answered Alcohol Use Standard Drinks/Week Comments Yes 0 (1 standard drink = 0.6 oz pur e alcohol) Education Answer Date Recorded Are you interested in more education? Not on eve e 12/30/2023 Are you concerned about learning? Not on file 12/30/2023 No 12/30/2023 No 12/30/2023 Digital Access Answer Date Recorded No 12/30/2023 No 12/30/2023 Reliable internet access at home? Not on file 12/30/2023 Device with a working camera? Not on file Comments Unknown Sex and Gender Information Value Date Recorded Sex Assigned at Not on file Legal Sex Female 11:39 AM EDT Gender Identity Not on file Sexual Orientation Not on file Last Filed Vital Signs Vital Sign Reading Time Taken Comments Blood Pressure 117/76 05/17/2024 11:18 AM EST Pulse 95 05/17/2024 11:18 AM EST Temperature 36.6 C (97.9 F) 05/17/2024 11:18 AM EST Respiratory Rate 16 05/17/2024 11:1 8 AM EST Oxygen Saturation 95% 05/17/2024 11: 18 AM EST Inhaled Oxygen Concentration - - Weight 70.3 kg (154 lb 14.4 oz) 025 11:18 AM EST Height 157.5 cm (5' 2 ) 02/17/2024 9:09 AM EST Body Mass Index 28.33 02/17/2024 9:09 AM EST Plan of Treatment Health Maintenance Due Date Last Done Comments DEPRESSION SCREENING 1996 HEPATITIS C SCREENING 2002 HIV ONE-TIME SCREENING (18-65 YEARS) 2002 PNEUMOCOCCAL VACCINES (0-49 years) (1 of 2 - PCV) 2003 SCREENING FOR DIABETES 2019 INFLUENZA VACCINE (#1) 2024 COVID-19 VACCINE (1 - season) 2024 MAMMOGRAM 11/22/2025 11/23/2023, 0809/2023, 10/10/2023, Additional history exists PAP SMEAR 08/07/2026 08/08/2023 Adult Td,Tdap Booster 11/23/2028 11/23/2018 SMOKING STATUS SCREENING (Once After 26 Yrs) Completed 02/17/2024 HEPATITIS A VACCINES Aged Out No long er eligible based on patient's age to complete this topic HIB VACCINES Aged Out No longer eligi ble based on patient's age to complete this topic MENINGOCOCCAL VACCINES (ACWY) Aged Out No longer eligible based on patient's age to complete this topic MENINGOCOCCAL VACCINES (B) Aged Out N o longer eligible based on patient's age to complete this topic Medical Devices Not on file Procedures Procedure Name Priority Date/Time Associated Diagnosis Comments BI MAMMOGRAM OUTSIDE (NO INTERPRETATION) Routine 11/23/2023 12:00 AM EDT from Last 3 Months or Most Recently Relevant to Health Maintenance Results * Mammogram Outside (No Interpretation) (11/23/2023 12:00 AM EDT) Narrative SYSTEMGENERATED, DOCUMENTATION - 01/18/2024 1:46 PM EDT This study is for PACS storage only and not for interpretation. us Unknown Unknown MD SHABAZZ OUTSIDE IMAGING W/OUT INT ERPRETATION Final Result from Last 3 Months or Most Recently Relevant to Health Maintenance Insurance C3 ACO C3 ACO C3 ACO C[address] [place] [address] [place] [address] C3 ACO C3 ACO Care Teams Toll Testboard Worker Relationship Specialty Start Date End Date Naa Leigh MD [address] [place] [address] [phone] PCP - General Internal Medicine 12/30/23 Simon Fournier MD [address] [place] [address] [phone] 12/30/23 Shaniqua Steward MD [address] [place] [address] Radiation Oncology 12/30/23 Additional Source Comments The information contained in this document represents components of the legal health record. It is not the complete legal health record.[facility]
--- OUTSIDE RECORDS SUMMARY | 2024-12-05 15:27 | XMS_ITS | Patient Health Record ---
Author Organization [facility] Address [address] [place] [address] Support Name Relationship Address Phone [facility] Emergency Contact [address] [place] [address] Yoandy Henao Guarantor Unknown [phone] Allergies Allergen (clinical drug ingredient) Drug/Non Drug Allergy documented on EMR Reaction Allergy Type Onset Date Status Dairy (uncoded) Sneezing Allergy Acti ve Reason For Referral No Information Medications Medication SIG (Take, Route, Frequency, Duration) Notes Start Date End Date Status Ibuprofen as needed Active Medrol 4 MG as directed Orally 08/19/2017 Not-Taking Meclizine HCl 25 MG 1 tablet as needed Orally two times a day; Duration: 30 day(s) 10/14/2017 Not-Taking Aspirin as needed Active Problems Problem Type SNOMED Code ICD Code Onset Dates Problem Status W/U Status Risk Notes Problem Displacement of cervical intervertebral disc without myelopathy (51945181) Other cervical disc displacement, unspecified cervical region (M50.20) Active confirmed Problem Acquired spondylolisthesis (555767753) Spondylolisthesis at L5-S1 level (M43.17) Active confirmed Problem Displacement of lumbar intervertebral disc without myelopathy (79180341) Lumbago due to displacement of intervertebral disc (M51.26) Active confirmed Problem Sacroiliitis (15250784) Sacroiliitis (M46.1) Active confirmed Problem Facet joint pain (120448816) Facet syndrome (M46.90) Active confirmed Problem Cervical spine instability (395050118) 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 [place] [phone] [id number] Yoandy Henao Self - patient is the insured [facility] LAW [id number] [place] [address] CLEMENTINA JOHNSONH Yoandy Henao Self - patient is the insured Medical (General) History Medical History History ICD Code Headaches Surgical History Surgery Date(Month/Year) Denies
[2024-12-13] VITALS (10 sets, daily range): BP systolic 116–140; BP diastolic 74–89; PULSE 72–95; RESP 0–16; TEMP 36.3–36.6; O2SAT 97–100; BMI 26.9
--- NOTE | ~2024-12-13 | IR_ITS ---
Port removal History: Patient no longer requires access for chemotherapy. Referring physicians request removal. Procedure: The risks and benefits were discussed the patient and the consent was signed. The right anterior chest was prepped and draped in routine sterile fashion. The skin was anesthetized with 1% lidocaine. An incision was made over the previous scar. Utilizing blunt dissection, the port was removed from the chest with the catheter intact. The pocket was irrigated with an antibiotic solution. The port pocket was closed with interrupted 3-0 Vicryl sutures in the deep layer and surgical glue to close the skin. The patient tolerated the procedure well. A sterile dressing was applied. Moderate sedation time: 18 minutes. This procedure was performed by Arsalan Mayers NP, and supervised by Horacio Payne M.D.. IR/IR cvc remov tunnel wo prt/nitro man Impression: Right port removal Electronically signed by: Horacio Payne MD 12/18/2024 05:08 PM EDT .70.12
[2024-12-13 12:05] LABS: UPreg QC Valid YES
[2024-12-13 12:08] LABS: MANUAL DIFF FLAG NO
[2024-12-13 12:10] LABS: Hematocrit 37.6 % (37.0-47.0); Hemoglobin 12.7 g/dl (12.0-16.0); Imm Gran Abs Auto 0.01 X10*3/uL (0.00-0.03); Imm Gran Pct Auto 0.2 % (0.0-0.4); Lymphocytes Absolute Auto 0.9 X10*3/uL (1.2-4.9); Mean Corpuscular HGB Conc 33.8 g/dl (31.0-35.0); Mean Corpuscular Hemoglobin 30.2 pg (27.0-33.0); Mean Corpuscular Volume 89.5 fL (80.0-98.0); NRBC Abs Auto 0.000 X10*3/uL (0.0-0.012); NRBC Pct Auto 0.0 /100WBC (0.0-0.2); Platelet Count 158 X10*3/uL (160-400); Red Blood Count 4.20 X10*6/uL (4.20-5.50); White Blood Count 4.6 X10*3/uL (4.8-10.8)
[2024-12-13 12:22] LABS: INTERNATIONAL NORM RATIO 1.0 (0.9-1.1); Prothrombin Time 11.3 SEC (10.9-12.4)
[2024-12-13 12:36] LABS: Anion Gap 11 (12-20); Blood Urea Nitrogen 10 mg/dL (9-16); Calcium 9.2 mg/dL (8.4-10.2); Carbon Dioxide 27 mmol/L (22-29); Chloride 108 mmol/L (96-108); Creatinine Clr Calc Pharmacy 90.5; Estimated Glomerular Filt Rate > 60; Potassium 4.0 mmol/L (3.3-5.1); Sodium 142 mmol/L (135-145)
== END 2024-12-13 15:01 | disposition home or self-care (01) ==
PROVIDERS: Radiology Diagnostic Radiology; PCP Student in an Organized Health Care Education/Training Program; Visit Provider Internal Medicine Medical Oncology
PROC: (CPT 36590; principal; 2024-12-13 13:00)
DX: Z45.2 Encounter for adjustment and management of vascular access device (principal); C50.912 Malignant neoplasm of unspecified site of left female breast
CPT/HCPCS: 36415; 36589; 80048; 81025; 85025; 85610; 99152; J0690; J2003; J2250; J3010

== ENCOUNTER → 2024-12-13 12:52 | Outpatient (BNV) | payer MEDICAID, SELFPAY | PROVIDERS: PCP Student in an Organized Health Care Education/Training Program | DX: Z45.2 Encounter for adjustment and management of vascular access device (principal) | CPT/HCPCS: 36589 ==

== ENCOUNTER 2025-03-15 08:46 | Outpatient (AMB) | payer OTHER, SELFPAY ==
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
[2025-03-15 09:03] VITALS: BP 139/82; PULSE 93; BMI 27.1
--- OUTSIDE RECORDS SUMMARY | 2025-03-15 09:04 | XMS_ITS | Clinical Summary ---
Author Organization [employer] Address [address] [facility] 7t [place] [address] Care Team Providers Care Pharmacy Technician Instructor Name Role Phone Naa Leigh MD Primary [...] NEEDED FOR CONSTIPATION 09/08/19 24 Active tamoxifen (Nolvadex) 20 MG chemo tablet [...] allergies. 10 mL 2 10/27/19 25 Active gabapentin (Neurontin) 400 MG capsule Take 1 capsule (400 mg) by mouth at bedtime. 90 capsule 12/19/19 25 026 Active cyclobenzapri ne (Flexeril) 5 MG tablet TAKE 1 TABLET BY MOUTH AT BEDTIME FOR 10 DAYS. 10 tablet 01/22/20 25 Active busPIRone (Buspar) 10 MG tablet Take 1 tablet (10 mg) by mouth 2 times daily. 60 tablet 2 02/27/20 25 026 Active busPIRone (Buspar) 10 MG tablet Take 1 tablet (10 mg) by mouth 2 times daily. 60 tablet 2 11/28/19 25 025 Discontinued(R eorder (will not trigger notification to Pharmacy)) Active Problems Problem Noted Date Diagnosed Date GEORGINA (generalized anxiety disorder) 10/26/2024 Adrenal nodule 07/11/2024 Breast cancer (CMS/HCC) 07/14/2023 Transaminitis 07/14/2023 Back pain 04/14/2023 Hypertension [...] record-already requested by pt---From records reviewed from EMT-pt had pap smear in 2018 -reported as neg w neg HPV and rec to repeat test in 5 years -aprox 2023 -contraception: continue progestin pill daily-tolerating well ( -reports hx of SE w estrogen pills,IUD, inj) -vaccines:s/p MMRx3, hep A x2, hep Bx3--immune now, tdap 2018, HPV x 3 w her EMT per pt,COVID 19 x2-advised today again x Bivalent dose but refusing Assessment & Plan (09/15/2022 1:59 PM EDT): -PPD neg per pt -pap smear: 2020 neg per pt --pd to get record-already requested by pt---From records reviewed from EMT-pt had pap smear in 2019 -reported as neg w neg HPV and rec to repeat test in 5 years -aprox 2023 -contraception: continue progestin pill daily-tolerating well ( -reports hx of SE w estrogen pills,IUD, inj) -vaccines:s/p MMRx3, hep A x2, hep Bx3--immune now, tdap 2018, HPV x 3 w her EMT per pt,COVID 19 x2-advised today x Bivalent dose but refusing Assessment & Plan (08/05/2022 12:36 PM EDT): From records reviewed from EMT-pt had pap smear in 2019 -reported as [...] tdap 2018, HPV x 3 w her EMT per pt,COVID 19 x2-advised today x Bivalent dose. Overweight (BMI 25.0-29.9) 08/04/2022 Assessment & Plan (11/10/2022 9:15 AM EDT): Advised pt to improve diet and exercise,discussed healthy life style 07/2022 Total ch 211, LDL 128,Fasting gl 106 w normal hb1AC, AST wnl,ALT 31- slight elevated -will monitor weight -already started care w air surveillance operator -repeat fasting lipids in 1 y and fasting chem in 6 mo from last labs -aprox 01/2023 Assessment & Plan (09/15/2022 1:59 PM EDT): Advised pt to improve diet and exercise,discussed healthy life style 07/2022 Total ch 211, LDL 128,Fasting gl 106 w normal hb1AC, AST wnl,ALT 31- slight elevated -will monitor weight -referred today to air surveillance operator -repeat fasting lipids in 1 y [...] Encounters Date Type Department Care Team Description 02/26/2025 Orders Only [facility] [address] [place] [address] Naa Leigh MD 02/26/2025 Telephone [facility] [address] [place] [address] Naa Leigh MD Med Refill 02/09/2025 Travel 01/18/2025 Refill [facility] [address] [place] [address] Brayden Altamirano MD 12/18/2024 Orders Only [facility] [address] [place] [address] Naa Leigh MD 12/17/2024 Telephone [facility] [address] [place] [address] Naa Leigh MD Medication Question from Last 3 Months Immunizations Immunization Administration [...] is your housing situation today? I have marelny manuel 12/13/[address] you [...] Care Team (Late st Contact Info) Description 04/12/2025 9:00 AM EST Office Visit [facility] [address] [place] [address] Naa Leigh MD [address] [place] [address] 06/07/2025 3:00 PM EDT Office Visit [facility] OPTOMETRY [address] [place] [address] Idalia Morrison, OD [address] [place] [address] Health Maintenance Due Date Last Done Comments Family Planning (PISQ) 1999 HPV Vaccines (1 - 3-dose series) 1999 Influenza Vaccine (#1) 2024 03/12/2019 SDOH Screening 12/12/2024 12/13/2023 Mammogram 09/17/2025 09/17/2024, 0207/2024, 11/02/2023, Additional history exists Alcohol/Substance Use Screening [...] 06/29/1985, Additional history exists Hepatitis A Vaccines Completed 07/03/2019, 11/24/19 19 Hepatitis B Vaccines Completed 07/03/2019, 01/29/2019, 11/23/2018 [...] 09/17/2024 10:00 AM EDT Breast pain, right HEPATITIS PANEL, GENERAL Routine 10/20/2023 11:24 AM [...] AM EDT Narrative 09/17/2024 11:32 AM EDT [facility] [address] [place] [address] Ultrasound Report Signed Patient: Yoandy Henao MR#: [id number] : 1985 Acct:[id number] Age/Sex: 39 / F ADM Date: 09/17/24 Loc: HO.MAMMO Attending Dr: Naa Roberts MD Ordering Physician: Naa Leigh MD Date of Service: 09/17/24 Procedure(s): US breast RT limited mamm only Accession Number(s): [id number] cc: Naa Leigh MD EXAMINATION: US DIAGNOSTIC [...] Sabrina Neville DO 09/17/2024 11:29 AM EDT RP Dictated By: Sabrina Neville DO Signed By: <Electronically signed by Sabrina Neville DO in OV> 09/17/24 1129 DD/ 1000 TD/TT: 09/17/24 1026 Icing Coater: Procedure Note Donotuseinterpreter, Image - 09/17/2024 [facility] [address] [place] [address] Ultrasound Report Signed Patient: Yoandy HenaoMR#: [id number] : 1985Acct:[id number] Age/Sex: 39 / FADM Date: 09/17/24 Loc: HO.MAMMO Attending Dr: Naa Roberts MD Ordering Physician: Naa Leigh MD Date of Service: 09/17/24 Procedure(s): US breast RT limited mamm only Accession Number(s): [id number] cc: Naa Leigh MD EXAMINATION: US DIAGNOSTIC [...] Sabrina Neville DO 09/17/2024 11:29 AM EDT RP Dictated By: Sabrina Neville DO Signed By: <Electronically signed by Sabrina Neville DO in OV> 09/17/24 1129 DD/ 1000 TD/TT: 09/17/24 1026 Icing Coater: us Naa Roberts MD IM US PROCEDURES Final Result * Hepatitis Panel, General (10/20/2023 11:24 AM EDT) Hepatitis A IgM Nonreactive Nonreactive [facility] Comment:IgM antibodies to GILMORE V not detected; does not exclude earlyacute or recovered HAV infection. ~Hepatitis B Surface Antibody REACTIVE Nonreactive [facility] Comment:REACTIVE: > 11.99 mI U/mL Hepatitis B Core Antibody Nonreactive Nonreactive [facility] Hepatitis C Antibody Nonreactive Nonreactive [facility] Comment:Antibodies to HCV no t detected; does not exclude early acuteHCV infection. Hepatitis B Surface Ag Negative Negative [facility] 10/20/2023 11:2 4 AM EDT 10/20/2023 11:24 AM EDT us Generic External Data Provider LAB BLOOD ORDERAB LES Final Result [facility] [address] [place] [address] [phone] * (ABNORMAL) Lipid Panel, Standard (10/20/2023 11:24 AM EDT) Triglycerides 306(H) <150 mg/dL [facility] Comment:Desirable Triglyceri de: less than 150 mg/dLBorderline High Triglyceride 150-199 mg/dLHigh Triglyceride: 200-499 mg/dLVery High Triglyceride: greater than or equal to 5OO mg/dL Cholesterol 263(H) <200 mg/dL [facility] Comment:Desirable Cholestero l: less than 200 mg/dLBorderline High Cholesterol: 200-239 mg/dLHigh Cholesterol: greater than 239 mg/dL LDL Cholesterol Calculated 148(H) <100 mg/dL [facility] Comment:Desirable LDL: less than 100 mg/dLNear Optimal/Above Optimal LDL: 110- 129 mg/dLBorderline High LDL: 130-159 mg/dLHigh LDL: 160-189 mg/dLVery High LDL: greater than or equal to 190 mg/dL HDL Cholesterol 54 >40 mg/dL [facility] Comment:Desirable HDL: great er than 40 mg/dL Note: This HDL assay may give artificially low results in patients with liver disease. Blood Venous blood specimen / Unknown 10/20/2023 11:24 AM EDT 10/20/2023 11:24 AM EDT us Naa Roberts MD LAB BLOOD ORDERAB LES Final Result [facility] [address] [place] [phone] * HPV mRNA E6/E7 w/Reflex to HPV Genotypes 16, 18/45 (08/08/2023 9:33 AM EDT) HPV nRNA E6/E7 Not Detected Not Detected [facility] Comment:Methodology: Transcr iption-Mediated AmplificationThis assay detects E6/E7 viral messenger RNA (mRNA) from 14high-risk HPV types (16,18,31,33,35,39,45,51,52,56,58,59,66,68).Cervical sources are required for HPV testing.If a vaginal source from a patient who has had atotal hysterectomy with removal of cervix wassubmitted, please contact the testing laboratoryfor alternative testing options.For additional information, please refer tohttp://education.ObjectWay/faq/SYV974q4(This link if provided for information/educational purposes only.)THIS TEST WAS PERFORMED AT:[facility] [employer] [place] [phone] HORNE MD HPV mRNA E6/E7 TNP [facility] HPV 16 RNA TNP [facility] HPV 18/[address] [facility] [facility] 08/08/2023 9:33 AM EDT 08/09/2023 8:45 AM EDT us Kerwin TARANGO LAB CYTOLOGY ORDERABLES F inal Result [facility] [address] [place] [address] [phone] * Pap Smear (08/08/2023 9:33 AM EDT) Swab Cervix uteri structure / Unknown 08/08/2023 9:33 AM EDT 08/09/2023 8:45 AM EDT Narrative [facility] - 08/23/2023 12:57 PM EDT ----- ------- Name: Yoandy Henao Age/Sex: 38/F : 1985 Unit#: [id number] Attend Dr: KERWIN LOVE CNM Re08/08/23 Status: DEP REF Location: [facility] Disch: ----- ------- SPEC : [id number] RECD: 08/09/23 STATUS: CINDY ANDERSON NUM: [id number] SELENA: 08/08/23 [facility] DR: KERWIN LOVE CNM ENTERED: 08/09/23-1053 SP TYPE: Pap Smr OTHR DR: ORDERED: Pap Smear, PAP path review Interpretation General Category: Negative for intraepithelial lesion/malignancy. Adequacy: Endocervical component absent. Interpretation: Reactive cellular changes. HPV mRNA E6/E7: NOT DETECTED This assay detects E6/E7 viral messenger RNA (mRNA) from 14 high-risk HPV types (16, 18, 31, 33, 35, 39, 45, 51, 52, 56, 58, 59, 66, 68) HPV testing performed by [facility], [place], [place]. See reference laboratory portion of the EMR for entire report. Clinical Information LMP: Unknown date Previous PAP test: 06/2018, WNL Material Received ThinPrep-Cervical ----- ------- Signed (signature on file) Janis Castillo 08/23/23 1257 ----- ------- END OF REPORT Kerwin Love CNM LAB CYTOLOGY ORDERABLES F inal Result [facility] [address] [place] [phone] * HIV-1/2 Antigen and Antibodies, Fourth Generation, with Reflexes (09/08/2022 8:29 AM EDT) HIV Antigen/Antibody, 4th Generation NON-REAC TIVE NON-REAC TIVE [facility] [place] [facility] Comment: HIV-1 antigen and HIV-1/HIV-2 antibodies [...] purpose. For additional information please refer to http://education.[employer] Maintenance.[employer]/faq/VBL297 (This link is being provided for informational/ educational purposes only.) The performance of this assay has not been clinically validated in patients less than 2 years old. Blood Venous blood specimen / Unknown 09/08/2022 8:29 AM EDT 09/08/2022 8:30 AM EDT Narrative [facility] - 09/10/2022 3:43 PM EDT FASTING:YES FASTING: YES Naa Roberts MD LAB BLOOD ORDERAB LES Final Result [facility] [address], [place] [address] [facility] [address] [place] [phone] from Last 3 Months or Most Recently Relevant to Health Maintenance Insurance [address] [place] [id number] [employer] PPO Care Teams Pharmacy Technician Instructor Relationship Specialty Start Date End Date Naa Leigh MD [address] [place] [phone] PCP - General Internal Medicine 08/04/22 [facility] 01/19/24
--- OUTSIDE RECORDS SUMMARY | 2025-03-15 09:04 | XMS_ITS | Patient Health Record ---
Author Organization [facility] Address [address] [place] [address] Care Team Providers Care Barrel Finisher Name Role Phone ChandrakantTamrad Primary Care Provider Allergies No Known Allergies Reason For Referral [...] Status W/U Status Risk Notes Problem Hyperlipidemia (60520730) Hyperlipidemia, unspecified (E78.5) Active confirmed Problem Anxiety disorder (742388731) Other mixed anxiety disorders (F41.3) Active confirmed Problem Essential hypertension (88310030) Essential (primary) hypertension (I10) Active confirmed Plan Of Treatment Pending Test Test Name Order Date VENIPUNCT, ROUTINE* 01/19/2021 VENIPUNCT, ROUTINE* 04/27/2021 COMPREHENSIVE METABOLIC PANEL 01/19/2021 CBC (INCLUDES DIFF/PLT) 01/19/2021 LIPID PANEL 01/19/2021 TSH, 3RD GENERATION 01/19/2021 Insurance Providers Payer Name Payer Address Payer Phone Subscriber Number Group Number Insured Name Patient Relationship to Insured Coverage Start Date Coverage End Date [employer]A [id number] [place] [address] [id number] Yoandy Henao Self - patient is the insured Medical (General) History Medical History History ICD Code Impaired Fasting fasting Glucose Hyperlipidemia Herniated Cervical and Lumbar Disk Follo wing - 2017 Perrineal allergy Insomnia Cat, Mold , Dairy , Cockroach and Dust M ites Surgical History Surgery Date(Month/Year)
--- OUTSIDE RECORDS SUMMARY | 2025-03-15 09:04 | XMS_ITS | Encounter Summary ---
Author Organization [employer] Address [address] [facility] 7 [place] [address] Care Team Providers Care Jigger Operator Name Role Phone Naa Leigh MD Primary Care Pro vider Encounter Details Date Type Department Care Team ([facility] st Contact Info) Description 11/27/2024 Orders Only [facility] MEDICINE [address] [place], [place] [phone] Naa Leigh MD [address] [place], [place] [phone] Social History Tobacco Use Types Packs/Day Years [...] Description 04/12/2025 9:00 AM EST Office Visit [facility] MEDICINE [address] [place] [address] Naa Leigh MD [address] [place] [address] 06/07/2025 3:00 PM EDT Office Visit [facility] OPTOMETRY [address] [place] [address] Prince, Idalia, OD [address] [place] [address] documented as of this encounter Visit Diagnoses Not on filedocumented in this encounter Additional Health Concerns Assessment Noted Time PHQ-9 Depression Total Score: 3 10/26/19 25 9:27 AM EDT documented as of this encounter Care Teams Jigger Operator Relationship Specialty Start Date End Date Naa Leigh MD [address] [place] [address] PCP - General Internal Medicine 08/04/22 [facility] 01/19/24 documented as of this encounter
--- OUTSIDE RECORDS SUMMARY | 2025-03-15 09:04 | XMS_ITS | Encounter Summary ---
Author Organization [employer] Address [address] [facility] [address], [place] [address] Care Team Providers Care Charter And Tour Bus Driver Name Role Phone Naa Leigh MD Primary Care Pro vider Reason for Visit * Reason Comments Med Refill Encounter Details Date Type Department Care Team ([facility] st Contact Info) Description 08/05/2023 Refill [facility] MEDICINE [address] [place], [place] [phone] Naa Leigh MD [address] [place], [place] [phone] Social History Tobacco Use Types Packs/Day Years [...] Description 04/12/2025 9:00 AM EST Office Visit [facility] MEDICINE [address] [place] [address] Naa Leigh MD [address] [place] [address] 06/07/2025 3:00 PM EDT Office Visit [facility] OPTOMETRY [address] [place] [address] Prince, Idalia, OD [address] [place] [address] documented as of this encounter Visit Diagnoses Not on filedocumented in this encounter Additional Health Concerns Assessment Noted Time PHQ-9 Depression Total Score: 5 09/16/19 9:07 AM EDT documented as of this encounter Care Teams Charter And Tour Bus Driver Relationship Specialty Start Date End Date Naa Leigh MD [address] [place] [phone] PCP - General Internal Medicine 08/04/22 [facility] 01/19/24 documented as of this encounter
--- OUTSIDE RECORDS SUMMARY | 2025-03-15 09:04 | XMS_ITS | Encounter Summary ---
Author Organization [employer] Address [address] [facility] [address], [place] [address] Care Team Providers Care Horse Racer Name Role Phone Naa Leigh MD Primary Care Pro vider Reason for Visit * Reason Comments Med Refill Encounter Details Date Type Department Care Team ([facility] st Contact Info) Description 10/31/2024 Refill [facility] MEDICINE [address] [place], [place] [phone] Naa Leigh MD [address] [place], [place] [phone] Social History Tobacco Use Types Packs/Day Years [...] Description 04/12/2025 9:00 AM EST Office Visit [facility] MEDICINE [address] [place] [address] Naa Leigh MD [address] [place] [address] 06/07/2025 3:00 PM EDT Office Visit [facility] OPTOMETRY [address] [place] [address] Prince, Idalia, OD [address] [place] [address] documented as of this encounter Visit Diagnoses Not on filedocumented in this encounter Additional Health Concerns Assessment Noted Time PHQ-9 Depression Total Score: 3 10/26/19 25 9:27 AM EDT documented as of this encounter Care Teams Horse Racer Relationship Specialty Start Date End Date Naa Leigh MD [address] [place] [address] [phone] PCP - General Internal Medicine 08/04/22 [facility] 01/19/24 documented as of this encounter
--- OUTSIDE RECORDS SUMMARY | 2025-03-15 09:04 | XMS_ITS | Patient Health Record ---
Author Organization [facility] Address [address] [place] [address] Support Name Relationship Address Phone [employer] [address] [place] [address] Yoandy Henao Guarantor Unknown Allergies Allergen (clinical drug ingredient) Drug/Non Drug [...] Displacement of cervical intervertebral disc without myelopathy (38500124) Other cervical disc displacement, unspecified cervical region (M50.20) Active confirmed Problem Acquired spondylolisthesis (284702359) Spondylolisthesis at L5-S1 level (M43.17) Active confirmed Problem Displacement of lumbar intervertebral disc without myelopathy (95168338) Lumbago due to displacement of intervertebral disc (M51.26) Active confirmed Problem Sacroiliitis (93715611) Sacroiliitis (M46.1) Active confirmed Problem Facet joint pain (371267100) Facet syndrome (M46.90) Active confirmed Problem Cervical spine instability (463341115) Cervical spine instability (M53.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 [place] [phone] [id number] Yoandy Henao Self - patient is the insured [facility] LAW [address] [facility] [address] [place] [address] CLEMENTINA JOHNSONH Yoandy Henao Self - patient is the insured Medical (General) History Medical History History ICD Code Headaches Surgical History Surgery Date(Month/Year) Denies
--- OUTSIDE RECORDS SUMMARY | 2025-03-15 09:04 | XMS_ITS | Encounter Summary ---
Author Organization [employer] Address [address] [facility] [address], [place] [address] Care Team Providers Care Radiology Services Manager Name Role Phone Naa Leigh MD Primary Care Pro vider Reason for Visit * Reason Comments Med Change Request Encounter Details Date Type Department Care Team ([facility] st Contact Info) Description 02/24/2024 Refill [facility] MEDICINE [address] [place], [place] [phone] Naa Leigh MD [address] [place], [place] [phone] Social History Tobacco Use Types Packs/Day Years [...] Description 04/12/2025 9:00 AM EST Office Visit [facility] MEDICINE [address] [place] [address] Naa Leigh MD [address] [place] [address] 06/07/2025 3:00 PM EDT Office Visit [facility] OPTOMETRY [address] [place] [address] Prince, Idalia, OD [address] [place] [address] documented as of this encounter Visit Diagnoses Not on filedocumented in this encounter Additional Health Concerns Assessment Noted Time PHQ-9 Depression Total Score: 5 09/16/19 23 9:07 AM EDT documented as of this encounter Care Teams Radiology Services Manager Relationship Specialty Start Date End Date Naa Leigh MD [address] [place] [address] PCP - General Internal Medicine 08/04/22 [facility] 01/19/24 documented as of this encounter
--- OUTSIDE RECORDS SUMMARY | 2025-03-15 09:04 | XMS_ITS | Encounter Summary ---
Author Organization [employer] Address [address] [place] [address] Care Team Providers Care Channeling Machine Operator Name Role Phone Naa Leigh MD Primary Care Pro vider Reason for Visit * Reason Onset Date Comments Med Refill 10/02/2022 Encounter Details Date Type Department Care Team (Late st Contact Info) Description 10/02/2022 Refill [facility] MEDICINE [address] [place], [place] [phone] Naa Leigh MD [address] [place] [address] Social History Tobacco Use Types Packs/Day Years [...] Description 04/12/2025 9:00 AM EST Office Visit [facility] MEDICINE [address] [place] [address] Naa Leigh MD [address] [place] [address] 06/07/2025 3:00 PM EDT Office Visit [facility] OPTOMETRY [address] [place] [address] Idalia Morrison, OD [address] [place] [address] documented as of this encounter Visit Diagnoses Not on filedocumented in this encounter Additional Health Concerns Assessment Noted Time PHQ-9 Depression Total Score: 5 09/16/19 9:07 AM EDT documented as of this encounter Care Teams Channeling Machine Operator Relationship Specialty Start Date End Date Naa Leigh MD [address] [place], [place] [phone] PCP - General Internal Medicine 08/04/22 [facility] 01/19/24 documented as of this encounter
== END 2025-03-15 09:12 | disposition home or self-care (01) ==
PROVIDERS: PCP Student in an Organized Health Care Education/Training Program; Visit Provider Surgery
DX: C50.912 Malignant neoplasm of unspecified site of left female breast (principal); Z90.12 Acquired absence of left breast and nipple
CPT/HCPCS: 99213; G2211